=== PATIENT | female | born 1930 | race Caucasian/White ===

== ENCOUNTER 2017-02-20 10:52 | Emergency (ER) | payer OTHER, BC ==
[~2017-02-20] VITALS: Ht 162.6 cm; Wt 100.0 kg
[~2017-02-20 10:52] MED LIST: ADVIN25050 INH; AZIT-57 PO; CITRACAL PETITES PO; CLR/5 PO; CMBIN INH; FLUT110A INH; LSX40 PO; OXYC-57 PO; PRAV20TA PO; VNCAQN INH; [UNRECOGNIZED DRUG - OTHER] PO
[2017-02-20 10:57] VITALS: TEMP 37.1; Ht 162.6 cm; Wt 100.0 kg
--- NOTE | 2017-02-20 11:14 | EMERGENCY ROOM VISIT NOTE ---
History Report prepared by Raúl: Calderon Lainez Under the Supervision of: Dr. Dharmesh Mcwilliams M.D. First contact with patient: 11:05 Chief Complaint: WEAKNESS Stated Complaint: LETHARGY History of Present Illness The patient is an 86 year old female who presents to the Emergency Room via EMS with complaints of worsening weakness that started last night. Per the nursing staff, the patient's caregiver called an ambulance because the patient has had trouble ambulating more than usual. The patient states that she did not fall, mostly because her son was there to catch her. Per the patient's caregiver, the patient normally cannot walk far, but the patient is weaker than normal. The patient could not get up out of bed. The patient is on 4 liters of oxygen all the time, and is currently at 97%. The patient denies chest pain, new shortness of breath, confusion, or new leg swelling. The patient did not have her blood pressure medication this morning because the patient's caregiver knew the patient was coming here. Source of History: patient, caregiver, nursing staff Onset: Last night Position: other (global - weakness) Symptom Intensity: could not get up out of bed Timing: worsening Associated Symptoms: No SOB, No chest pain Note: Associated symptoms: Trouble ambulating. Denies confusion, new leg swelling. Review of Systems See HPI for pertinent positives & negatives. A total of 10 systems reviewed and were otherwise negative. Past Medical & Surgical Medical Problems: (1) Congestive heart failure Family History Family history omitted secondary to advanced age. Social History Smoking Status: Former Smoker Marital Status: Occupation Status: retired Current/Historical Medications Scheduled Acetaminophen (Tylenol), 1,000 MG PO BID PRN Albuterol Hfa (Ventolin Hfa), 1-2 PUFFS INH Q6H Beclomethasone Dip (Beconase Aq), 1 SPRAY EDI BID Desloratadine (Clarinex), 5 MG PO DAILY Diclofenac Sodium (Topical) (Voltaren 1% Top Gel), 1 APPLN TOP HS Fluticasone-Salmeterol 230/21 Mcg (Advair Hfa 230/21 Mcg), 2 PUFFS INH BID Furosemide (Lasix), 40 MG PO Q2D Gabapentin (Neurontin), 300 MG PO QID Hctz/Spironolactone 25MG/25MG (Aldactazide 25MG/25MG), 1 TAB PO DAILY Losartan Potassium (Cozaar), 50 MG PO DAILY Multivitamins/Minerals (Mvi With Minerals), 1 TAB PO DAILY Oxycodone/Acetaminophen 5MG/325MG (Percocet 5MG/325MG), 1 TABLET PO Q8HR PRN Pravastatin Sodium (Pravachol), 10 MG PO DAILY Tramadol Hcl (Ultram), 50 MG PO BID PRN Allergies Coded Allergies: Doxycycline (Verified Allergy, Mild, ., 10/01/12) Iodinated Diagnostic Agents (Verified Allergy, Unknown, `, 10/15/15) Penicillins (Verified Allergy, Unknown, 12/10/09) Physical Exam Vital Signs Date Time Temp Pulse Resp B/P Pulse Ox O2 Delivery O2 Flow Rate FiO2 02/20/17 18:01 114 18 199/98 91 Nasal Cannula 4.0 02/20/17 18:01 114 18 199/98 91 02/20/17 16:37 85 18 169/78 98 Nasal Cannula 3.0 02/20/17 15:22 97 23 97 02/20/17 15:21 182/81 02/20/17 14:52 93 20 02/20/17 14:22 94 26 02/20/17 13:52 87 19 02/20/17 13:22 104 33 02/20/17 12:52 90 19 02/20/17 12:41 92 18 174/87 97 Nasal Cannula 3.0 02/20/17 12:40 174/87 02/20/17 12:22 101 24 02/20/17 11:22 92 23 02/20/17 10:57 37.1 97 18 179/95 97 Nasal Cannula 3.0 02/20/17 10:55 179/95 Physical Exam GENERAL: Patient is chronically unwell appearing and tired appearing, in minimal distress. HEENT: No acute trauma, normocephalic atraumatic, mucous membranes moist, no nasal congestion, no scleral icterus. NECK: No stridor, no adenopathy, no meningismus, trachea is midline. LUNGS: Decreased breath sounds bilaterally with crackles. HEART: Regular rate and rhythm. No murmurs, rubs, gallops appreciated. ABDOMEN: Soft, nontender, bowel sounds positive, no masses appreciated, no peritonitis. BACK: No midline tenderness, no CVA tenderness EXTREMITIES: 4+ bilateral pitting edema lower legs. NEUROLOGIC: Alert and oriented, no acute motor or sensory deficits, no focal weakness, cranial nerves grossly intact. SKIN: No rash, no jaundice, no diaphoresis. Medical Decision & Procedures ER Provider Diagnostic Interpretation: Radiology results and stated below per my review and radiologist interpretation: HEAD CT NONCONTRAST CT DOSE: 823.94 mGycm HISTORY: Mental status change Generalized Weakness TECHNIQUE: Multiaxial CT images of the head were performed without the use of intravenous contrast. Comparison: None. Findings: The paranasal sinuses and mastoid air cells are clear. The calvarium and skull base are intact. The ventricles and sulci are within normal limits. There is no mass, hematoma, midline shift, or acute infarct. Impression: No acute intracranial abnormality. Mild chronic small vessel change of aging Electronically signed by: Luis Carlos Lawrence M.D. 02/20/2017 12:03 PM Dictated Date/Time: 02/20/2017 12:01 PM CHEST ONE VIEW PORTABLE HISTORY: Generalized Weakness COMPARISON: Chest 10/15/2015. FINDINGS: No pneumothorax. Small bilateral pleural effusions are again noted. The heart remains enlarged. Bibasilar densities persist. Mild interstitial pulmonary edema, unchanged. Calcified mediastinal, hilar, supraclavicular lymph nodes. Severe degenerative changes within the glenohumeral joints with humeral head deformity. IMPRESSION: No change from the prior study. Mild interstitial pulmonary edema and small bilateral pleural effusions/opacities persist. Electronically signed by: Hong Peters M.D. 02/20/2017 11:25 AM Dictated Date/Time: 02/20/2017 11:23 AM Laboratory Results 02/20/17 11:33 Red Blood Count 3.17, Mean Corpuscular Volume 100.3, Mean Corpuscular Hemoglobin 30.0, Mean Corpuscular Hemoglobin Concent 29.9, Mean Platelet Volume 9.9, Neutrophils (%) (Auto) 86.0, Lymphocytes (%) (Auto) 6.7, Monocytes (%) ( Auto) 5.1, Eosinophils (%) (Auto) 1.4, Basophils (%) (Auto) 0.6, Neutrophils # ( Auto) 7.71, Lymphocytes # (Auto) 0.60, Monocytes # (Auto) 0.46, Eosinophils # ( Auto) 0.13, Basophils # (Auto) 0.05 02/20/17 11:33 Test 02/20/17 11:33 02/20/17 12:30 White Blood Count 8.97 K/uL (4.8-10.8) Red Blood Count 3.17 M/uL (4.2-5.4) Hemoglobin 9.5 g/dL (12.0-16.0) Hematocrit 31.8 % (37-47) Mean Corpuscular Volume 100.3 fL (80-100) Mean Corpuscular Hemoglobin 30.0 pg (25-34) Mean Corpuscular Hemoglobin Concent 29.9 g/dl (32-36) Platelet Count 240 K/uL (130-400) Mean Platelet Volume 9.9 fL (7.4-10.4) Neutrophils (%) (Auto) 86.0 % Lymphocytes (%) (Auto) 6.7 % Monocytes (%) (Auto) 5.1 % Eosinophils (%) (Auto) 1.4 % Basophils (%) (Auto) 0.6 % Neutrophils # (Auto) 7.71 K/uL (1.4-6.5) Lymphocytes # (Auto) 0.60 K/uL (1.2-3.4) Monocytes # (Auto) 0.46 K/uL (0.11-0.59) Eosinophils # (Auto) 0.13 K/uL (0-0.5) Basophils # (Auto) 0.05 K/uL (0-0.2) RDW Standard Deviation 47.1 fL (36.4-46.3) RDW Coefficient of Variation 12.8 % (11.5-14.5) Immature Granulocyte % (Auto) 0.2 % Immature Granulocyte # (Auto) 0.02 K/uL (0.00-0.02) Prothrombin Time 11.1 SECONDS (9.0-12.0) Prothromb Time International Ratio 1.0 (0.9-1.1) Activated Partial Thromboplast Time 22.1 SECONDS (21.0-31.0) Partial Thromboplastin Ratio 0.9 Anion Gap 2.0 mmol/L (3-11) Est Creatinine Clear Calc Drug Dose 45.6 ml/min Estimated GFR () 58.7 Estimated GFR (Non- 50.6 BUN/Creatinine Ratio 26.8 (10-20) Calcium Level 9.8 mg/dl (8.5-10.1) Phosphorus Level 2.3 mg/dl (2.5-4.9) Magnesium Level 2.0 mg/dl (1.8-2.4) Total Bilirubin 0.3 mg/dl (0.2-1) Direct Bilirubin < 0.1 mg/dl (0-0.2) Aspartate Amino Transf (AST/SGOT) 21 U/L (15-37) Alanine Aminotransferase (ALT/SGPT) 24 U/L (12-78) Alkaline Phosphatase 109 U/L (45-117) Total Creatine Kinase 88 U/L (26-192) Creatine Kinase MB 1.3 ng/ml (0.5-3.6) Creatine Kinase MB Ratio 1.5 (0-3.0) Troponin I < 0.015 ng/ml (0-0.045) Pro-B-Type Natriuretic Peptide 782 pg/ml (0-1800) Total Protein 6.8 gm/dl (6.4-8.2) Albumin 3.3 gm/dl (3.4-5.0) Lipase 159 U/L (73-393) Urine Color YELLOW Urine Appearance CLEAR (CLEAR) Urine pH 7.0 (4.5-7.5) Urine Specific [place] 1.017 (1.000-1.030) Urine Protein 1+ (NEG) Urine Glucose (UA) NEG (NEG) Urine Ketones NEG (NEG) Urine Occult Blood NEG (NEG) Urine Nitrite NEG (NEG) Urine Bilirubin NEG (NEG) Urine Urobilinogen NEG (NEG) Urine Leukocyte Esterase NEG (NEG) Urine WBC (Auto) 0 /hpf (0-5) Urine RBC (Auto) 0-4 /hpf (0-4) Urine Hyaline Casts (Auto) 0 /lpf (0-5) Urine Epithelial Cells (Auto) 0-5 /lpf (0-5) Urine Bacteria (Auto) NEG (NEG) Laboratory results as reviewed by me. Medications Administered Medications (Trade) Dose Ordered Sig/Jose Route Start Time Stop Time Status Last Admin Dose Admin Furosemide (Lasix Tab) 40 mg NOW STAT PO 02/20/17 15:58 02/20/17 16:01 DC 02/20/17 16:38 40 MG Losartan Potassium (coZAAR TAB) 50 mg NOW STAT PO 02/20/17 15:58 02/20/17 16:01 DC 02/20/17 16:38 50 MG ECG Indication: weakness Rate (beats per minute): 90 Rhythm: normal sinus Findings: no acute ischemic change, no ectopy ED Course 1105: The patient was evaluated in room C6. A complete history and physical exam was performed. 1225: I reevaluated the patient and she is still feeling weak. I had a separate conversation with the patient's family, who feel that the patient is too weak to go home, and do not think that she should come home right now. 1322: I reevaluated the patient and she is too weak to go home. I asked case management to talk to the patient and the family about rehab. 1558: Ordered Cozaar Tab 50 mg PO, Lasix Tab 40 mg PO. 1643: The patient was accepted at [facility] for transfer. The patient is resting comfortably and she is agreeable to the treatment plan. Medical Decision Differential: Sepsis, Infectious (UTI/Pneumonia/Meningitis/etc), Metabolic/ Electrolyte Abnormality, Cardiac, Hepatic, Endocrine, Toxicologic, Neurologic, amongst other pathologies entertained. 86 yr old female arrives with family for generalized weakness. Entire work-up including CT head essentially unremarkable. Chronic heart failure though no shob, no hypoxia and no increased leg swelling from normal. She was given BP and lasix meds. Monitored for quite some time. Clearly much of this is deconditioning. Seems to be good [facility] who have excepted for further treatment. Impression Primary Impression: Generalized weakness Additional Impressions: Ambulatory dysfunction CHF (congestive heart failure) Scribe Attestation The scribe's documentation has been prepared under my direction and personally reviewed by me in its entirety. I confirm that the note above accurately reflects all work, treatment, procedures, and medical decision making performed by me. Departure Information Dispostion Transfer Acute Care Facility (to [facility]) Referrals Gonzalez Bennett M.D. (PCP) Patient Instructions My [facility] Problem Qualifiers
[2017-02-20] MEDS ORDERED: IPRA1AER2 INH (11:15)
[2017-02-20] MEDS ORDERED: VNCAQN NAE (11:15)
[2017-02-20] MEDS ORDERED: FLVHFA110 INH (11:15)
[2017-02-20] MEDS ORDERED: CALC-335 PO (11:16)
[2017-02-20] MEDS ORDERED: FLUT115A INH (11:25)
[2017-02-20] MEDS ORDERED: FRS/40 PO (11:25)
--- NOTE | 2017-02-20 11:27 | DIAGNOSTIC IMAGING REPORT ---
CHEST ONE VIEW PORTABLE HISTORY: Generalized Weakness COMPARISON: Chest 10/15/2015. FINDINGS: No pneumothorax. Small bilateral pleural effusions are again noted. The heart remains enlarged. Bibasilar densities persist. Mild interstitial pulmonary edema, unchanged. Calcified mediastinal, hilar, supraclavicular lymph nodes. Severe degenerative changes within the glenohumeral joints with humeral head deformity. IMPRESSION: No change from the prior study. Mild interstitial pulmonary edema and small bilateral pleural effusions/opacities persist. Electronically signed by: Hong Peters M.D. 02/20/2017 11:25 AM Dictated Date/Time: 02/20/2017 11:23 AM
[2017-02-20 11:59] LABS: PARTIAL THROMBOPLASTIN RATIO 0.9; PROTHROMBIN TIME (PATIENT) 11.1 SECONDS (9.0-12.0)
[2017-02-20 12:04] LABS: ALT/SGPT 24 U/L (12-78); AST/SGOT 21 U/L (15-37); BLOOD UREA NITROGEN 27 mg/dl (7-18); BUN/CREATININE RATIO 26.8 (10-20); CALCIUM 9.8 mg/dl (8.5-10.1); CARBON DIOXIDE 38 mmol/L (21-32); CHLORIDE 102 mmol/L (98-107); GLUCOSE 121 mg/dl (70-99); POTASSIUM 4.6 mmol/L (3.5-5.1); SODIUM 142 mmol/L (136-145)
--- NOTE | 2017-02-20 12:05 | DIAGNOSTIC IMAGING REPORT ---
HEAD CT NONCONTRAST CT DOSE: 823.94 mGycm HISTORY: Mental status change Generalized Weakness TECHNIQUE: Multiaxial CT images of the head were performed without the use of intravenous contrast. Comparison: None. Findings: The paranasal sinuses and mastoid air cells are clear. The calvarium and skull base are intact. The ventricles and sulci are within normal limits. There is no mass, hematoma, midline shift, or acute infarct. Impression: No acute intracranial abnormality. Mild chronic small vessel change of aging Electronically signed by: Luis Carlos Lawrence M.D. 02/20/2017 12:03 PM Dictated Date/Time: 02/20/2017 12:01 PM
[2017-02-20 12:06] LABS: BASO % 0.6 %; BASO ABS # 0.05 K/uL (0-0.2); COMPLETE YES; EOS % 1.4 %; HEMATOCRIT 31.8 % (37-47); IG% 0.2 %; LYMPH % 6.7 %; MEAN CELL VOLUME 100.3 fL (80-100); MEAN CORPUSCULAR HGB CONC 29.9 g/dl (32-36); MEAN PLATELET VOLUME 9.9 fL (7.4-10.4); MONO % 5.1 %; PLATELET COUNT 240 K/uL (130-400); RED BLOOD COUNT 3.17 M/uL (4.2-5.4); WHITE BLOOD COUNT 8.97 K/uL (4.8-10.8)
[2017-02-20 12:07] LABS: ALKALINE PHOSPHATASE 109 U/L (45-117); CKMB/CK RATIO 1.5 (0-3.0); PHOSPHORUS 2.3 mg/dl (2.5-4.9)
[2017-02-20 13:07] LABS: URINE APPEARANCE CLEAR (CLEAR); URINE BILIRUBIN NEG (NEG); URINE COLOR YELLOW; URINE EPITHELIAL CELL AUTO 0-5 /lpf (0-5); URINE NITRITE NEG (NEG); URINE SPECIFIC GRAVITY 1.017 (1.000-1.030); UROBILINOGEN NEG (NEG); ZZURINE CULT IF INDIC CATH NO
[2017-02-20 13:09] LABS: MANUAL MICROSCOPIC REQUIRED? NO; REVIEW REQ? NO
[2017-02-20] MEDS ORDERED: LOSARTAN POTASSIUM 50 MG TAB PO STA (15:58)
[2017-02-20] MEDS ORDERED: FUROSEMIDE 40 MG TAB PO STA (15:58)
[2017-02-20 18:01] VITALS: BP 199/98; PULSE 114; O2SAT 91
[2017-07-19] MEDS ORDERED: VNCAQN NAE (16:22)
[2017-07-19] MEDS ORDERED: PRD20 PO (16:22)
[2017-07-19] MEDS ORDERED: LVQ250 PO (16:22)
[2017-09-03] MEDS ORDERED: DONE1TAB11 PO (01:17)
[2017-09-03] MEDS ORDERED: ALPPOPS5 OPL (01:17)
[2017-09-03] MEDS ORDERED: VNTHFA/IN INH (12:02)
[2017-09-03] MEDS ORDERED: FLUT230A INH (12:02)
[2017-09-03] MEDS ORDERED: PRAV10TA39 PO (13:18)
[2017-09-03] MEDS ORDERED: OXGN (13:19)
[2017-09-03] MEDS ORDERED: LOSA50TA6 PO (14:45)
[2017-09-03] MEDS ORDERED: ULT/50 PO (14:45)
[2017-09-03] MEDS ORDERED: NRN/300 PO (14:45)
[2017-09-03] MEDS ORDERED: TYLOTC500 PO (14:45)
[2017-09-03] MEDS ORDERED: MULTTAB PO (14:45)
[2017-09-03] MEDS ORDERED: DICL1GEL12 TOP (14:45)
[2017-09-03] MEDS ORDERED: AZIT250T PO (15:16)
[2017-09-03] MEDS ORDERED: SPIR50TA PO (18:19)
[2017-09-19] MEDS ORDERED: PRED10PA3 PO (12:00)
[2017-09-19] MEDS ORDERED: IPRASOL4 INH (12:00)
[2017-09-19] MEDS ORDERED: LEVO1TAB35 PO (12:00)
== END 2017-02-20 18:02 ==
LOC: EDBD 10:52 → C.EDC 10:59
DX: R53.1 Weakness (principal); I50.9 Heart failure, unspecified; Z87.891 Personal history of nicotine dependence

== ENCOUNTER → 2017-02-26 | Outpatient (CLI) | payer OTHER, BC ==
[~2017-02-26] MED LIST changes: -ADVIN25050 INH; +ALPPOPS5 OPL; -AZIT-57 PO; +AZIT250T PO; +AZITTAB PO; -CITRACAL PETITES PO; +CLR10 PO; -CMBIN INH; +DICL1GEL12 TOP; +DONE1TAB11 PO; -FLUT110A INH; +FLUT230A INH; +FRS/40 PO; +IPRASOL4 INH; +LEVO1TAB35 PO; +LOSA50TA6 PO; -LSX40 PO; +LVQ250 PO; +MULTTAB PO; +NRN/300 PO; +OXGN; +PRAV10TA39 PO; +PRD20 PO; +PRED10PA3 PO; +SPIR50TA PO; +TYLOTC500 PO; +ULT/50 PO; -VNCAQN INH; +VNCAQN NAE; +VNTHFA/IN INH; -[UNRECOGNIZED DRUG - OTHER] PO
--- NOTE | 2017-02-26 21:59 | DIAGNOSTIC IMAGING REPORT ---
MRI OF THE CERVICAL SPINE WITHOUT IV CONTRAST CLINICAL HISTORY: Spinal stenosis. COMPARISON STUDY: No priors. TECHNIQUE: MRI of the cervical spine is performed utilizing various T1 and T2-weighted sequences in the axial and sagittal planes. IV contrast was not administered for this examination. The examination is significantly degraded by motion artifact and spinal curvature. FINDINGS: Cervical spine: Vertebral body height is maintained throughout the cervical spine. There is 4 mm of anterolisthesis at C3-C4. Minimal retrolisthesis is present at C5-C6 and C6-C7. There is straightening of the cervical lordosis with reversal centered at C4-C5. The spinous processes are intact as imaged. The atlantodental articulation appears maintained. A large hemangioma is seen in the body of T4. No destructive bony lesion is seen. Anterior osteophytes are noted from C4 through C7. Chronic degenerative endplate change is noted at these levels. Intervertebral discs: Degenerative disc desiccation is seen at all levels. Advanced loss of height is seen at C4-C5 and C5-C6. Moderate loss of height is noted at C6-C7. Spinal cord: Increased T2 signal is suggested within the cervical cord on the STIR sequences from C5 through T1. There is no significant thinning of the cervical cord. C2-C3: A posterior disc osteophyte complex effaces the ventral subarachnoid space. Uncovertebral and facet arthropathy cause moderate left neural foraminal stenosis. C3-C4: A posterior disc osteophyte complex effaces the ventral cord. Uncovertebral and facet arthropathy cause severe left and mild to moderate right neural foraminal stenosis. C4-C5: A posterior disc osteophyte complex abuts the ventral cord. Uncovertebral and facet arthropathy cause mild to moderate left greater than right neural foraminal stenosis. C5-C6: A posterior disc osteophyte complex abuts the ventral cord. Uncovertebral and facet arthropathy cause severe bilateral neural foraminal stenosis. C6-C7: A posterior disc osteophyte convex abuts the ventral cord. Uncovertebral and facet arthropathy cause severe right and moderate to severe left neural foraminal stenosis. C7-T1: Unremarkable. Soft tissues: The prevertebral and paraspinous soft tissues are normal as imaged. Brain parenchyma: Partially visualized brain parenchyma at the skull base is grossly unremarkable. IMPRESSION: 1. Significantly motion degraded examination. 2. Multilevel cervical spondylosis as detailed above. See discussion for detailed level by level analysis. 3. Question myelomalacia of the cervical cord versus artifact at C5-T1. Dictated: 02/26/2017 9:43 PM Transcribed: 02/26/2017 9:58 PM OBI_Deanna Electronically signed by: Issac Vidales M.D. 02/26/2017 10:41 PM Dictated Date/Time: 02/26/2017 9:43 PM
--- NOTE | 2017-02-26 22:05 | DIAGNOSTIC IMAGING REPORT ---
MRI OF THE LUMBAR SPINE WITHOUT IV CONTRAST CLINICAL HISTORY: Spinal stenosis. COMPARISON STUDY: No priors. TECHNIQUE: MRI of the lumbar spine is performed utilizing various T1 and T2-weighted sequences in the axial and sagittal planes. IV contrast was not administered for this examination. The examination is significantly compromised by motion artifact and spinal curvature. FINDINGS: Lumbar spine: Vertebral body height and alignment appear maintained throughout the lumbar spine. There is moderate lumbar dextrocurvature centered at L2-L3. There is minimal anterolisthesis at L3-L4 and L4-L5. Alignment is otherwise preserved. Hemangiomas are noted in the bodies of L1 and L3. No destructive osseous lesion is identified. Marrow signal intensity is heterogeneous. Anterior osteophytes are seen throughout. The transverse and spinous processes are grossly intact. There is no evidence of spondylolysis. Intervertebral discs: Advanced degenerative disc desiccation is seen throughout the lumbar spine. Moderate to severe loss of height is present from L2-L3 through L4-L5. Fluid is present within the L2-L3, L3-L4, and L4-L5 discs. This likely is on a degenerative basis. There is no associated endplate change. Spinal cord: Partially visualized spinal cord is normal in morphology and signal intensity. The conus medullaris terminates at the level of L1. The nerve roots of the cauda equina are grossly normal in morphology. L1-L2: A posterior disc bulge with annular fissure is noted. In conjunction with hypertrophy of the ligamentum flavum, this causes mild to moderate acquired compromise of the central canal, with a minimum AP diameter of 7 mm. There is bilateral subarticular stenosis, right greater than left. This may impinge on the exiting right L1 nerve root. L2-L3: Broad-based posterior disc bulge is identified with annular fissure. In conjunction with hypertrophy of the ligamentum flavum, this causes moderate to severe acquired compromise of the central canal, with a minimum AP diameter of 6 mm. There is bilateral subarticular stenosis with probable impingement on the exiting bilateral L2 and the transiting bilateral L3 nerve roots. There is moderate left-sided neural foraminal stenosis at this level secondary to facet arthropathy. L3-L4: There is broad-based posterior disc bulge eccentric to the left with annular fissure. In conjunction with hypertrophy of the ligamentum flavum, this causes severe central canal stenosis, with a minimum AP canal diameter of 5 mm. There is severe bilateral subarticular stenosis, left greater than right with probable impingement on the exiting bilateral L3 and the transiting L4 nerve roots. There is tethering of the cauda equina at this level. There is also severe bilateral neural foraminal stenosis at this level. L4-L5: There is a posterior disc osteophyte complex. In conjunction with hypertrophy of the ligamentum flavum, there is moderate central canal stenosis at this level, with a minimum AP diameter of 7 mm. There is bilateral subarticular stenosis with probable impingement on the exiting bilateral L4 nerve roots. Facet arthropathy causes severe bilateral neural foraminal stenosis. L5-S1: The central canal is clear. Facet arthropathy causes mild to moderate bilateral neural foraminal stenosis. Sacrum: Partially imaged sacrum is normal in morphology and signal intensity. Soft tissues: There is fatty atrophy of the paraspinous and iliopsoas musculature. The abdominal aorta appears ectatic. No retroperitoneal lymphadenopathy is seen. The partially imaged kidneys appear atrophic. Renal cysts are noted on the dancing teacher images. IMPRESSION: 1. Motion compromised examination. 2. Moderate to advanced lumbosacral spondylosis and scoliosis with multilevel acquired compromise of the central canal. See discussion for detailed level by level analysis. 3. No destructive bony process is identified. 4. Degenerative disc disease as above. Fluid within the L2-L3, L3-L4, and L4-L5 discs is likely on a degenerative basis. There is no convincing evidence of discitis at these levels. Clinical correlation will be required. Dictated: 02/26/2017 9:51 PM Transcribed: 02/26/2017 10:04 PM OBI_Deanna Electronically signed by: Issac Vidales M.D. 02/26/2017 10:39 PM Dictated Date/Time: 02/26/2017 9:51 PM
--- NOTE | 2017-02-26 22:08 | DIAGNOSTIC IMAGING REPORT ---
MRI OF THE THORACIC SPINE WITHOUT IV CONTRAST CLINICAL HISTORY: Generalized weakness. Spinal stenosis. COMPARISON STUDY: No priors. TECHNIQUE: MRI of the thoracic spine is performed using various T1 and T2-weighted sequences in the axial, sagittal, and coronal planes. IV contrast was not administered for this examination. FINDINGS: Vertebral body height and alignment are maintained throughout the thoracic spine. Marrow signal intensity is heterogeneous. Hemangiomas are identified in the bodies of T3 and L1. No destructive bony lesion is suspected. Degenerative disc desiccation is seen throughout the thoracic region. Posterior disc osteophyte complexes are identified at C7-T1, T1-T2, T5-T6, and T7-T8. There is no high-grade central canal stenosis identified involving the thoracic spine. No significant neural foraminal stenosis is identified. The thoracic spinal cord is normal in morphology and signal intensity. The conus medullaris terminates at the level of L1. The transverse and spinous processes are intact as imaged. The paraspinous soft tissues are within normal limits. A large heterogeneous mass lesion is identified within the mediastinum, possibly representing a thyroid goiter. No obvious pulmonary lesion is identified, although this is not well assessed by MRI. No pleural effusion is seen. A right renal cyst is partially imaged. IMPRESSION: 1. Degenerative disc disease as above. No high-grade central canal stenosis is seen in the thoracic region. 2. No destructive bony process is suggested in the thoracic spine. 3. The thoracic spinal cord is normal in morphology and signal intensity. 4. A large complex/heterogeneous mass lesion is identified in the superior mediastinum. The appearance suggests thyroid goiter but this is incompletely visualized. Correlation with any prior outside imaging studies is recommended. If no prior studies are available this could be further assessed with a CT scan of the chest if clinically warranted. Dictated: 02/26/2017 9:58 PM Transcribed: 02/26/2017 10:07 PM [facility]BI[facility]Deanna Electronically signed by: Issac Vidales M.D. 02/26/2017 10:27 PM Dictated Date/Time: 02/26/2017 9:58 PM
== END | disposition home or self-care (01) ==
LOC: C.MRI 18:43
PROVIDERS: ATTEND Physical Medicine & Rehabilitation
DX: M47.812 Spondylosis without myelopathy or radiculopathy, cervical region (principal); M47.817 Spondylosis without myelopathy or radiculopathy, lumbosacral region; M51.36 Other intervertebral disc degeneration, lumbar region; M41.9 Scoliosis, unspecified; M51.34 Other intervertebral disc degeneration, thoracic region; R22.2 Localized swelling, mass and lump, trunk; R53.1 Weakness; I50.9 Heart failure, unspecified; R26.9 Unspecified abnormalities of gait and mobility

== ENCOUNTER → 2017-02-28 | Outpatient (CLI) | payer OTHER ==
--- NOTE | 2017-02-28 14:48 | DIAGNOSTIC IMAGING REPORT ---
CT OF THE NECK WITHOUT CONTRAST CLINICAL HISTORY: Mass on MRI. TECHNIQUE: Axial images of the neck were obtained without IV contrast. COMPARISON STUDY: MRI the cervical and thoracic spines February 26, 2017. FINDINGS: No enlarged cervical lymph nodes are present. Epiglottis is normal. No mucosal lesions are identified although sensitivity is diminished on this unenhanced CT. Note is made of heterogeneous enlargement of the thyroid gland with mediastinal extension. This corresponds to the lesion shown on MRI of February 26, 2017 and is consistent with a thyroid goiter. No additional masses are identified on this examination. No suspicious skeletal lesions are identified. The parotid and submandibular glands are within normal limits on this unenhanced exam. IMPRESSION: Heterogeneous enlargement of the thyroid gland with extension into the superior mediastinum consistent with a large thyroid goiter. This accounts for the abnormality on MRI of the thoracic spine. Electronically signed by: Julio Escobar M.D. 02/28/2017 2:46 PM Dictated Date/Time: 02/28/2017 2:41 PM
--- NOTE | 2017-02-28 14:50 | DIAGNOSTIC IMAGING REPORT ---
CT SCAN OF THE CHEST WITHOUT IV CONTRAST CLINICAL HISTORY: Mediastinal mass seen by thoracic spine MRI. COMPARISON STUDY: MRI of the thoracic spine dated 02/26/2017. Chest x-ray dated 02/20/2017. TECHNIQUE: CT scan of the thorax was performed from the thoracic inlet to the upper abdomen. Images are reviewed in the axial, sagittal, and coronal planes. IV contrast was not administered for this examination. CT DOSE: 1694.72 mGy.cm FINDINGS: Thyroid: The thoracic gland is markedly enlarged and heterogeneous. There is a large heterogeneous goiter which extends into the mediastinum which contains numerous coarse calcifications. This measures approximately 12 cm in craniocaudal length. Thoracic aorta: The thoracic aorta is normal in caliber and demonstrates standard 3-vessel arch anatomy. Heart: The heart is markedly enlarged and there is trace pericardial effusion. The pulmonary trunk is markedly dilated measuring up to 5 cm in transverse diameter. This is consistent with pulmonary artery hypertension. Lungs and pleural spaces: Evaluation of the lung parenchyma is severely degraded by respiratory motion artifact. Bibasilar patchy airspace consolidation is identified. No pleural effusion is seen. Scattered calcified granulomas are identified. The trachea is patent and displaced to the right by the thyroid goiter. Mediastinum: There is no mediastinal lymphadenopathy. Numerous calcified mediastinal lymph nodes are identified. A large heterogeneous mass within the superior mediastinum is consistent with a thyroid goiter. Keiko: There are calcified hilar lymph nodes. The keiko are not well assessed without IV contrast. Axillae: There is no axillary lymphadenopathy. Upper abdomen: The examination is significantly degraded by motion artifact. A 2.1 cm right adrenal adenoma is incidentally noted. There is diverticulosis of the partially imaged left colon. Skeletal structures: The skeletal structures are osteopenic. Advanced arthritic change is present in the shoulders. Mild degenerative change is noted throughout the thoracic spine. No lytic or blastic bony lesions are seen. IMPRESSION: 1. Motion compromised examination. 2. 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 This corresponds to the lesion seen on the thoracic spinal MRI. 3. Marked cardiomegaly with evidence of pulmonary artery hypertension. 4. Patchy airspace consolidation is seen dependently at the lung bases. This could represent atelectasis, pneumonia, and/or aspiration pneumonitis. Clinical correlation will be required. 5. There is evidence of remote granulomatous infection. 6. Additional changes as above. Electronically signed by: Issac Vidales M.D. 02/28/2017 2:48 PM Dictated Date/Time: 02/28/2017 2:41 PM
== END | disposition home or self-care (01) ==
LOC: C.CTS 14:11
PROVIDERS: ATTEND Internal Medicine Critical Care Medicine
DX: R22.2 Localized swelling, mass and lump, trunk (principal); I51.7 Cardiomegaly; R91.8 Other nonspecific abnormal finding of lung field

== ENCOUNTER → 2017-03-19 | Outpatient (CLI) | payer OTHER, BC ==
[2017-03-19 14:48] LABS: BASO % 0.6 %; BASO ABS # 0.05 K/uL (0-0.2); COMPLETE YES; EOS % 3.6 %; HEMATOCRIT 32.6 % (37-47); IG% 0.1 %; LYMPH % 10.6 %; LYMPH ABS # 0.84 K/uL (1.2-3.4); MEAN CELL VOLUME 100.6 fL (80-100); MEAN CORPUSCULAR HEMOGLOBIN 29.6 pg (25-34); MEAN CORPUSCULAR HGB CONC 29.4 g/dl (32-36); MEAN PLATELET VOLUME 9.9 fL (7.4-10.4); MONO % 7.2 %; NEUT % 77.9 %; PLATELET COUNT 254 K/uL (130-400); RED BLOOD COUNT 3.24 M/uL (4.2-5.4); WHITE BLOOD COUNT 7.96 K/uL (4.8-10.8)
[2017-03-19 15:02] LABS: FERRITIN 56.6 ng/ml (8.0-388.0)
== END | disposition home or self-care (01) ==
LOC: C.LAB1850 12:52
PROVIDERS: ATTEND Physician Assistant Medical
DX: D50.8 Other iron deficiency anemias (principal); E53.8 Deficiency of other specified B group vitamins

== ENCOUNTER 2017-07-13 23:16 | Inpatient (IN) | payer OTHER, BC ==
[~2017-07-13] VITALS: Ht 152.4 cm; Wt 96.5 kg
[~2017-07-13 23:16] MED LIST changes: -ALPPOPS5 OPL; -AZIT250T PO; -AZITTAB PO; -CLR10 PO; -DONE1TAB11 PO; -IPRASOL4 INH; -LEVO1TAB35 PO; -LVQ250 PO; -OXGN; -PRAV10TA39 PO; -PRD20 PO; -PRED10PA3 PO
[2017-07-14] VITALS (10 sets, daily range): BP systolic 115–159; BP diastolic 61–74; PULSE 81–92; TEMP 36.6–37.3; O2SAT 91–100; Ht 152.4 cm; Wt 96.5 kg
[2017-07-14 00:42] LABS: PARTIAL THROMBOPLASTIN RATIO 0.9; PROTHROMBIN TIME (PATIENT) 10.7 SECONDS (9.0-12.0)
[2017-07-14 00:55] LABS: BLOOD UREA NITROGEN 40 mg/dl (7-18); BUN/CREATININE RATIO 36.8 (10-20); CALCIUM 9.8 mg/dl (8.5-10.1); CHLORIDE 96 mmol/L (98-107); GLUCOSE 120 mg/dl (70-99); POTASSIUM 4.9 mmol/L (3.5-5.1); SODIUM 141 mmol/L (136-145)
[2017-07-14 01:05] LABS: CARBON DIOXIDE 49 mmol/L (21-32)
[2017-07-14 01:16] LABS: HEMATOCRIT 30.1 % (37-47); MEAN CELL VOLUME 102.7 fL (80-100); MEAN CORPUSCULAR HEMOGLOBIN 29.4 pg (25-34); MEAN CORPUSCULAR HGB CONC 28.6 g/dl (32-36); MEAN PLATELET VOLUME 9.8 fL (7.4-10.4); PLATELET COUNT 199 K/uL (130-400); RED BLOOD COUNT 2.93 M/uL (4.2-5.4); WHITE BLOOD COUNT 8.54 K/uL (4.8-10.8)
[2017-07-14] MEDS ORDERED: DONE1TAB11 PO (01:17)
[2017-07-14] MEDS ORDERED: ALPPOPS5 OPL (01:17)
[2017-07-14] MEDS ORDERED: AZITTAB PO (01:18)
[2017-07-14] MEDS ORDERED: AZIT250T PO (01:18)
[2017-07-14 01:19] LABS: BASO % 0.5 %; BASO ABS # 0.04 K/uL (0-0.2); COMPLETE YES; EOS % 2.9 %; IG% 0.2 %; LYMPH % 9.5 %; LYMPH ABS # 0.81 K/uL (1.2-3.4); NEUT % 78.9 %; STOMATOCYTE 1+
[2017-07-14] MEDS ORDERED: FUROSEMIDE 40 MG/4 ML VIAL IV STA (02:11)
[2017-07-14] MEDS ORDERED: NITROGLYCERIN 0.4 MG SL PER TAB CHARGE SL PRN (02:15)
[2017-07-14] MEDS ORDERED: ACETAMINOPHEN 500 MG TAB PO PRN (02:15)
[2017-07-14] MEDS ORDERED: ONDANSETRON INJ 2 MG/ML 2 ML VIAL IV PRN (02:15)
--- NOTE | 2017-07-14 02:24 | EMERGENCY ROOM VISIT NOTE ---
History Report prepared by Raúl: Kelly Samson Under the Supervision of: Dr. Robert Samano M.D. First contact with patient: 23:19 Chief Complaint: RESPIRATORY PROBLEMS Stated Complaint: BREATHING DIFFICULTY History of Present Illness The patient is an 86 year old female who presents to the Emergency Room with complaints of persistent nasal congestion starting several days ago. She presents to the ED by EMS. She is on oxygen and because of the nasal congestion , she has not been getting enough oxygen. She is SOB with activity which is normal for her. She is not more SOB. She has had some cough. She denies any fever or chest pain. She has a history of CHF. She lives at home with her daughter. Her daughter told EMS that she called them because she was not able to give the patient oxygen because their air compressor was not working. Source of History: patient, nursing staff Onset: several days ago Position: nose Quality: other (congestion) Timing: other (persistent) Associated Symptoms: + cough, No fevers, No chest pain Review of Systems See HPI for pertinent positives & negatives. A total of 10 systems reviewed and were otherwise negative. Past Medical & Surgical Medical Problems: (1) Congestive heart failure Family History Noncontributory secondary to age. Social History Smoking Status: Former Smoker Marital Status: Occupation Status: retired Current/Historical Medications Scheduled Albuterol Hfa (Ventolin Hfa), 1 PUFFS INH AMHS Azithromycin (Zithromax), 250 MG PO DAILY Beclomethasone Dip (Beconase Aq), 1 SPRAY EDI BID Brimonidine Tartrate (Alphagan P), 1 DROPS OPL BID Desloratadine (Clarinex), 5 MG PO DAILY Diclofenac Sodium (Topical) (Voltaren 1% Top Gel), 1 APPLN TOP HS Donepezil Hydrochloride (Donepezil Hcl), 5 MG PO HS Fluticasone-Salmeterol 230/21 Mcg (Advair Hfa 230/21 Mcg), 2 PUFFS INH BID Furosemide (Lasix), 40 MG PO Q2D Gabapentin (Neurontin), 300 MG PO QID Hctz/Spironolactone 25MG/25MG (Aldactazide 25MG/25MG), 1 TAB PO DAILY Losartan Potassium (Cozaar), 50 MG PO DAILY Multivitamins/Minerals (Mvi With Minerals), 1 TAB PO DAILY Pravastatin Sodium (Pravachol), 10 MG PO DAILY Tramadol Hcl (Ultram), 50 MG PO BID PRN Scheduled PRN Acetaminophen (Tylenol), 1,000 MG PO Q8 PRN for Pain Azithromycin (Zithromax Z-Aidan), 1 PKT PO UD PRN for RESCUE KIT Allergies Coded Allergies: Doxycycline (Verified Allergy, Mild, ., 07/14/17) Iodinated Diagnostic Agents (Verified Allergy, Unknown, `, 07/14/17) Penicillins (Verified Allergy, Unknown, 07/14/17) Physical Exam Vital Signs Date Time Temp Pulse Resp B/P (MAP) Pulse Ox O2 Delivery O2 Flow Rate FiO2 07/14/17 01:16 86 20 98 Oxymask 5.0 07/14/17 00:16 80 19 100 07/13/17 23:44 99 Non-Rebreather 15.0 07/13/17 23:31 80 07/13/17 23:24 37.0 99 18 133/75 88 Nasal Cannula 4.0 07/13/17 23:19 133/75 Physical Exam Constitutional: Vital signs reviewed. Eyes: Pupils are equal round reactive to light. Conjunctiva are noninjected. ENT: Pharynx is clear without erythema or exudate. Mucous membranes are moist. Neck supple without meningeal signs. Respiratory: Bibasilar crackles. Breath sounds are equal bilaterally. Cardiovascular: Regular rate and rhythm. No rubs or gallops. GI: Soft, nondistended and nontender. Bowel sounds are present. Musculoskeletal: No peripheral edema. No lower extremity tenderness. Integumentary: No cyanosis. Neurological: The patient is awake and alert. No focal deficits. Psychiatric: Normal affect. Medical Decision & Procedures ER Provider Diagnostic Interpretation: X-ray results as stated below per interpretation by me: Chest X-ray: Cardiomegaly, interstitial thickening, no change from February. Laboratory Results 07/14/17 00:05 Red Blood Count 2.93, Mean Corpuscular Volume 102.7, Mean Corpuscular Hemoglobin 29.4, Mean Corpuscular Hemoglobin Concent 28.6, Mean Platelet Volume 9.8, Neutrophils (%) (Auto) 78.9, Lymphocytes (%) (Auto) 9.5, Monocytes (%) ( Auto) 8.0, Eosinophils (%) (Auto) 2.9, Basophils (%) (Auto) 0.5, Neutrophils # ( Auto) 6.74, Lymphocytes # (Auto) 0.81, Monocytes # (Auto) 0.68, Eosinophils # ( Auto) 0.25, Basophils # (Auto) 0.04 07/14/17 00:05 Test 07/14/17 00:05 07/14/17 00:13 White Blood Count 8.54 K/uL (4.8-10.8) Red Blood Count 2.93 M/uL (4.2-5.4) Hemoglobin 8.6 g/dL (12.0-16.0) Hematocrit 30.1 % (37-47) Mean Corpuscular Volume 102.7 fL (80-100) Mean Corpuscular Hemoglobin 29.4 pg (25-34) Mean Corpuscular Hemoglobin Concent 28.6 g/dl (32-36) Platelet Count 199 K/uL (130-400) Mean Platelet Volume 9.8 fL (7.4-10.4) Neutrophils (%) (Auto) 78.9 % Lymphocytes (%) (Auto) 9.5 % Monocytes (%) (Auto) 8.0 % Eosinophils (%) (Auto) 2.9 % Basophils (%) (Auto) 0.5 % Neutrophils # (Auto) 6.74 K/uL (1.4-6.5) Lymphocytes # (Auto) 0.81 K/uL (1.2-3.4) Monocytes # (Auto) 0.68 K/uL (0.11-0.59) Eosinophils # (Auto) 0.25 K/uL (0-0.5) Basophils # (Auto) 0.04 K/uL (0-0.2) RDW Standard Deviation 51.6 fL (36.4-46.3) RDW Coefficient of Variation 13.7 % (11.5-14.5) Immature Granulocyte % (Auto) 0.2 % Immature Granulocyte # (Auto) 0.02 K/uL (0.00-0.02) Basophilic Stippling 1+ Stomatocytes 1+ Prothrombin Time 10.7 SECONDS (9.0-12.0) Prothromb Time International Ratio 1.0 (0.9-1.1) Activated Partial Thromboplast Time 23.1 SECONDS (21.0-31.0) Partial Thromboplastin Ratio 0.9 Anion Gap -4.0 mmol/L (3-11) Est Creatinine Clear Calc Drug Dose 38.9 ml/min Estimated GFR () 52.3 Estimated GFR (Non- 45.1 BUN/Creatinine Ratio 36.8 (10-20) Calcium Level 9.8 mg/dl (8.5-10.1) Pro-B-Type Natriuretic Peptide 407 pg/ml (0-1800) Chemistry Specimen Hemolysis Bedside Troponin I < 0.030 ng/ml (0-0.045) Laboratory results as reviewed by me. ECG Indication: SOB/dyspnea Rate (beats per minute): 82 Rhythm: normal sinus Findings: no acute ischemic change, no ectopy ED Course 2321: The patient was evaluated in room C7. A complete history and physical exam was performed. 0027: I reevaluated the patient. She states that the patient has had worsening dyspnea on exertion. Her daughter says that their air compressor is broken and they have no oxygen at home. I discussed the test results with the patient and her daughter. They verbalized agreement of the treatment plan. She will be evaluated for further management. 0034: I spoke with Dr. Pinon of [facility] hospitalist service. We discussed the patient and her results. The patient will be further evaluated by him. Medical Decision This is an 86-year-old female presents with nasal congestion and shortness of breath. Differential diagnosis includes URI, sinusitis, CHF, pulmonary edema, pneumonia. I did perform a limited focused review of portions of the patient's old chart on the electronic medical record. The patient has had no recent pertinent visits to this hospital. I did evaluate the patient as noted above. The patient states she is short of breath with exertion. I obtain history from her daughter who stated that the air compressor was broken and she eventually ran out of her portable oxygen and so they have come here. IV access was established. The patient was placed on a continuous vegetable worker. I did order and personally review the patient's 12-lead EKG and chest x-ray as described above. I did order and review the patient's blood work as noted in the electronic medical record. She is anemic. I did discuss case with the hospitalist and cyanide case hardener. Medication Reconcilliation Current Medication List: was personally reviewed by me Blood Pressure Screening Patient's blood pressure: Elevated blood pressure Blood pressure disposition: Referred to PCP Consults Time Called: 29 Consulting Physician: Dr. Pinon of [facility] hospitalist service Returned Call: [phone] I spoke with him. We discussed the patient and her results. The patient will be further evaluated by him. Impression Primary Impression: Hypoxia Additional Impressions: MELISSA (dyspnea on exertion) Anemia Scribe Attestation The scribe's documentation has been prepared under my direct and personally reviewed by me in its entirety. I confirm that the note above accurately reflects all work, treatment, procedures, and medical decision making performed by me. Departure Information Dispostion Being Evaluated By Hospitalist Referrals Gonzalez Bennett M.D. (PCP) Patient Instructions My [facility] Problem Qualifiers Additional Impressions: Anemia Anemia type: unspecified type Qualified Codes: D64.9 - Anemia, unspecified
[2017-07-14] MEDS ORDERED: LEVALBUTEROL/IPRATROPIUM NEB INH SCH (03:00)
[2017-07-14] MEDS: IPRATROPIUM BROMIDE NEB SOLN 0.02% 2.5 ML VIAL INH SCH ×4 (03:24→19:54)
[2017-07-14] MEDS: LEVALBUTEROL 1.25MG/0.5ML NEB INH SCH ×4 (03:24→19:53)
[2017-07-14] MEDS ORDERED: LEVALBUTEROL 1.25MG/0.5ML NEB INH PRN (03:30)
[2017-07-14] MEDS ORDERED: IPRATROPIUM BROMIDE NEB SOLN 0.02% 2.5 ML VIAL INH PRN (03:30)
[2017-07-14] MEDS ORDERED: LEVOFLOXACIN CONSULT ACTIVE PRN (03:30)
--- NOTE | 2017-07-14 03:41 | History and Physical ---
History & Physical Date & Time of Service: Jul 14, 2017 at 03:35 Chief Complaint: Congestive Heart Failure,Hypoxia Primary Care Physician: Gonzalez Bennett M.D. History of Present Illness Source: patient, family, hospital records The patient is a an 86-year-old female who presents emergency department with increased shortness of breath at rest and dyspnea on exertion and cough. Her daughter reports that she's had her oxygen concentrator was changed 3 times at home recently due to malfunctioning, with most recent being earlier in the day prior to arrival. Patient has some underlying dementia, so daughter provides significant part of the history of present illness. She has not had any recent travels or sick exposures Family History Noncontributory Social History Smoking Status: Former Smoker Smokeless Tobacco Use: No Alcohol Use: none Drug Use: none Marital Status: Housing status: lives with family Occupational Status: retired Immunizations History of Influenza Vaccine: Yes History of Tetanus Vaccine?: Yes History of Pneumococcal: Yes History of Hepatitis B Vaccine: Unknown Multi-Drug Resistant Organisms History of MDRO: No Allergies Coded Allergies: Doxycycline (Verified Allergy, Mild, ., 07/14/17) Iodinated Diagnostic Agents (Verified Allergy, Unknown, `, 07/14/17) Penicillins (Verified Allergy, Unknown, 07/14/17) Home Medications Scheduled Albuterol Hfa (Ventolin Hfa), 1 PUFFS INH AMHS Azithromycin (Zithromax), 250 MG PO DAILY Beclomethasone Dip (Beconase Aq), 1 SPRAY EDI BID Brimonidine Tartrate (Alphagan P), 1 DROPS OPL BID Desloratadine (Clarinex), 5 MG PO DAILY Diclofenac Sodium (Topical) (Voltaren 1% Top Gel), 1 APPLN TOP HS Donepezil Hydrochloride (Donepezil Hcl), 5 MG PO HS Fluticasone-Salmeterol 230/21 Mcg (Advair Hfa 230/21 Mcg), 2 PUFFS INH BID Furosemide (Lasix), 40 MG PO Q2D Gabapentin (Neurontin), 300 MG PO QID Hctz/Spironolactone 25MG/25MG (Aldactazide 25MG/25MG), 1 TAB PO DAILY Losartan Potassium (Cozaar), 50 MG PO DAILY Multivitamins/Minerals (Mvi With Minerals), 1 TAB PO DAILY Pravastatin Sodium (Pravachol), 10 MG PO DAILY Tramadol Hcl (Ultram), 50 MG PO BID PRN Scheduled PRN Acetaminophen (Tylenol), 1,000 MG PO Q8 PRN for Pain Azithromycin (Zithromax Z-Aidan), 1 PKT PO UD PRN for RESCUE KIT Review of Systems The patient denies chest pain, palpitations, lower extremity swelling, vision change, hearing change, sore throat, fevers, chills, sweats, nausea, vomiting, diarrhea or constipation, abdominal pain, pelvic pain, blood in urine or stool, dysuria, urinary frequency or urgency, lightheadedness, dizziness, headache, rash, abnormal bruising or bleeding, imbalance, focal weakness, numbness or tingling in arms or legs, generalized arthralgias or myalgias, back or neck pain , night sweats. The review of systems is otherwise negative other than for that already noted above, and at least 10 systems have been reviewed. Physical Exam Vital Signs Date Time Temp Pulse Resp B/P (MAP) Pulse Ox O2 Delivery O2 Flow Rate FiO2 07/14/17 03:25 88 18 98 Mask 6.0 07/14/17 02:35 36.6 92 22 159/70 99 Mask 5.0 07/14/17 02:22 87 17 138/65 98 07/14/17 01:16 86 20 98 Oxymask 5.0 07/14/17 00:16 80 19 100 07/13/17 23:44 99 Non-Rebreather 15.0 07/13/17 23:31 80 07/13/17 23:24 37.0 99 18 133/75 88 Nasal Cannula 4.0 07/13/17 23:19 133/75 The patient is awake, well-developed and adequately nourished, alert and oriented 3, normocephalic and atraumatic, lying in bed and in no acute distress. HEENT--PERRL, EOMI, mucous membranes and oropharynx dry. Neck--supple, no JVD or bruits, thyroid normal, trachea midline, no adenopathy. Heart--normal S1 and S2, no extra beats, no murmurs, rubs or gallops. Lungs--crackles at the bases to half way up bilaterally, no respiratory distress , no accessory muscle use. Abdomen--normal bowel sounds and soft, nontender and nondistended, no hernias or masses, no organomegaly. Extremities--no cyanosis, clubbing. 2+ bilateral pretibial pitting edema. There are good distal pulses b/l. Dermatologic--normal skin turgor, normal color, warm and dry, no abnormal lymph nodes, no rash. Neurologic--cranial nerves II through XII grossly intact. Rheumatologic--limited range of motion. Psychiatric--normal affect. Diagnostics Laboratory Results Results Past 24 Hours Test 07/14/17 00:05 07/14/17 00:13 Range/Units White Blood Count 8.54 4.8-10.8 K/uL Red Blood Count 2.93 4.2-5.4 M/uL Hemoglobin 8.6 12.0-16.0 g/dL Hematocrit 30.1 37-47 % Mean Corpuscular Volume 102.7 80-100 fL Mean Corpuscular Hemoglobin 29.4 25-34 pg Mean Corpuscular Hemoglobin Concent 28.6 32-36 g/dl Platelet Count 199 130-400 K/uL Mean Platelet Volume 9.8 7.4-10.4 fL Neutrophils (%) (Auto) 78.9 % Lymphocytes (%) (Auto) 9.5 % Monocytes (%) (Auto) 8.0 % Eosinophils (%) (Auto) 2.9 % Basophils (%) (Auto) 0.5 % Neutrophils # (Auto) 6.74 1.4-6.5 K/uL Lymphocytes # (Auto) 0.81 1.2-3.4 K/uL Monocytes # (Auto) 0.68 0.11-0.59 K/uL Eosinophils # (Auto) 0.25 0-0.5 K/uL Basophils # (Auto) 0.04 0-0.2 K/uL RDW Standard Deviation 51.6 36.4-46.3 fL RDW Coefficient of Variation 13.7 11.5-14.5 % Immature Granulocyte % (Auto) 0.2 % Immature Granulocyte # (Auto) 0.02 0.00-0.02 K/uL Basophilic Stippling 1+ Stomatocytes 1+ Prothrombin Time 10.7 9.0-12.0 SECONDS Prothromb Time International Ratio 1.0 0.9-1.1 Activated Partial Thromboplast Time 23.1 21.0-31.0 SECONDS Partial Thromboplastin Ratio 0.9 Sodium Level 141 136-145 mmol/L Potassium Level 4.9 3.5-5.1 mmol/L Chloride Level 96 98-107 mmol/L Carbon Dioxide Level 49 21-32 mmol/L Anion Gap -4.0 3-11 mmol/L Blood Urea Nitrogen 40 7-18 mg/dl Creatinine 1.10 0.60-1.20 mg/dl Est Creatinine Clear Calc Drug Dose 38.9 ml/min Estimated GFR () 52.3 Estimated GFR (Non- 45.1 BUN/Creatinine Ratio 36.8 10-20 Random Glucose 120 70-99 mg/dl Calcium Level 9.8 8.5-10.1 mg/dl Pro-B-Type Natriuretic Peptide 407 0-1800 pg/ml Chemistry Specimen Hemolysis Bedside Troponin I < 0.030 0-0.045 ng/ml EKG EKG shows normal sinus rhythm at 82 bpm, no acute ST-T changes, and no change compared to 02/20/2017. Impression Assessment and Plan Acute respiratory failure/CHF exacerbation/pneumonia with parapneumonic effusion -- The patient will be admitted to telemetry for serial cardiac enzymes, cardiac rhythm monitoring and a 2-D echocardiogram with Dopplers. Ceftriaxone 1 g IV daily. Levofloxacin 500 mg IV every 24 hours. Xopenex/Atrovent nebulizer every 6 hours while awake and every 2 hours when necessary. Follow serial CBC with differential, BMP and magnesium levels. Hold Advair Diskus and Ventolin HFA Hypertension/CHF-- HCTZ/spironolactone 25/25 by mouth daily, losartan 50 mg by mouth daily. Hold by mouth furosemide. Place on Lasix 40 mg IV twice a day with first dose now. GPN-- Gabapentin 300 mg by mouth 4 times a day. Hyperlipidemia--pravastatin 10 mg by mouth daily. Dementia--donepezil 5 mg by mouth at bedtime. Seasonal allergy--Clarinex 5 mg by mouth daily and Beconase AQ 1 sprays nostril twice a day. Glaucoma--continue Alphagan P. Pain control--continue tramadol and Voltaren gel. Level of Care Telemetry Advanced Directives Existing Advance Directive: No Existing Living Will: Yes Existing Power of Pie Baker: Yes Resuscitation Status FULL RESUSCITATION VTE Prophylaxis VTE Risk Assessment Done? Y/N: Yes Risk Level: Moderate Given or contraindicated: SCD's
[2017-07-14 03:49] LABS: ALKALINE PHOSPHATASE 90 U/L (45-117); ALT/SGPT 16 U/L (12-78); AST/SGOT 22 U/L (15-37)
[2017-07-14] MEDS ORDERED: LEVOFLOXACIN / D5W 500 MG in PREMIXED IN D5W 100 ML IV SCH (04:00)
[2017-07-14] MEDS: CEFTRIAXONE SOD INJ 1 GM in DEXTROSE 5% ADD-VANTAGE 50ML 50 ML IV SCH (05:27)
--- NOTE | 2017-07-14 06:10 | DIAGNOSTIC IMAGING REPORT ---
CHEST ONE VIEW PORTABLE CLINICAL HISTORY: eval for chf dyspnea COMPARISON STUDY: 02/20/2017 FINDINGS: Stable cardia megaly. Mild increase in pulmonary vasculature compared to the prior study. Probable small left effusion. IMPRESSION: Cardiomegaly. Probable congestive failure. The above report was generated using voice recognition software. It may contain grammatical, syntax or spelling errors. Electronically signed by: Luis Carlos Lawrence M.D. 07/14/2017 6:08 AM Dictated Date/Time: 07/14/2017 6:08 AM
[2017-07-14] MEDS: CLARINEX~ORDER AWAITING ACTION SCH ×2 (08:00→14:13)
[2017-07-14] MEDS: BRIMONIDINE TARTRATE-P 0.15% 5 ML BTL OPL SCH ×2 (08:28→21:06)
[2017-07-14] MEDS: FUROSEMIDE INJ 40 MG in SYRINGE 0 ML IV SCH ×2 (08:28→17:54)
[2017-07-14] MEDS: CEROVITE ADV FORMULA TAB PO SCH (08:29)
[2017-07-14] MEDS: GABAPENTIN 300 MG CAP PO SCH ×4 (08:29→21:05)
[2017-07-14] MEDS: PRAVASTATIN SOD 20 MG TAB PO SCH (08:30)
[2017-07-14] MEDS: HEPARIN SOD 5000 UNIT/0.5 ML CARP SQ SCH ×2 (08:33→21:07)
[2017-07-14] MEDS ORDERED: LOSARTAN POTASSIUM 50 MG TAB PO SCH (09:00)
[2017-07-14] MEDS ORDERED: SPIRONOLACTONE/HCTZ 25-25 PO SCH (09:00)
--- NOTE | 2017-07-14 12:30 | ECHOCARDIOGRAM REPORT ---
*NOTICE TO RECEIVING LIBERTARIAN AGENCY This information is strictly Confidential and protected under [place] law. [place] law prohibits you from making any further disclosure of this information unless further disclosure is expressly permitted by the written consent of the person to whom it pertains or is authorized by law. A general authorization for the release of medical or other information is not sufficient for this purpose. Hospital accepts no responsibility if the information is made available to any other person, INCLUDING THE PATIENT. Interpretation Summary * Name: RUBEN SNOW Study Date: 07/14/2017 07:29 AM BP: 159/70 mmHg * Patient Location: C.2T\S\S240\S\1 HR: 89 * : 1930 (M/d/yy) Gender: Female Height: 61 in * Age: 86 yrs Ethnicity: CA Weight: 219 lb * Ordering Physician: Andre Pinon * Referring Physician: Self, Referred * Performed By: Dieter Lara RDCS * * Reason For Study: CHF * BSA: 2.0 m2 * -- Conclusions -- * 1. Normal LV size. Mild concentric LVH. * 2. Normal LV systolic function. LVEF 65-70%. No regional wall motion abnormalities. * 3. Normal RV size and function. * 4. Grade I diastolic dyfunction. * 5. Mild aortic regurgitation. Mild aortic valve sclerosis without stenosis. * 6. Mobile echodense structure involving posterior mitral valve leaflet. Suspect redudant/ruptured chordae vs possible calcified old vegetation. Structure present on prior echo in 2011. Procedure Details * A complete two-dimensional transthoracic echocardiogram was performed (2D, M-mode, Doppler and color flow Doppler). * The study was technically adequate. Left Ventricle * The left ventricle is grossly normal size. * There is mild concentric left ventricular hypertrophy. * Ejection Fraction = 65-70%. * No regional wall motion abnormalities noted. Right Ventricle * The right ventricle is grossly normal size. * The right ventricular systolic function is normal as assessed by tricuspid annular plane systolic excursion (TAPSE) (normal >1.5 cm). Atria * Borderline left atrial enlargement. * Right atrial size is normal. * No ASD detected; PFO is not assessed. Mitral Valve * There is mild to moderate mitral annular calcification. * Calcified mitral apparatus. * Mobile echodense structure involving posterior mitral valve leaflet. Suspect redudant/ruptured chordae but cannot rule out vegetation. * There is no mitral valve stenosis. * Significant mitral regurgitation is absent. Tricuspid Valve * The tricuspid valve is not well visualized, but is grossly normal. * Tricuspid stenosis is absent. * There is trace tricuspid regurgitation. Aortic Valve * The aortic valve opens well. * Aortic valve sclerosis mild, without significant aortic valvular stenosis. * No hemodynamically significant valvular aortic stenosis. * Mild aortic regurgitation. Pulmonic Valve * The pulmonary valve is inadequately visualized, but the Doppler data is adequate for interpretation. * Pulmonic stenosis is absent. * Trace pulmonic valvular regurgitation. Great Vessels * The aortic root and proximal ascending aorta are normal sized. Pericardium/Pleural * There is no pericardial effusion. Great Vessels * Normal inferior vena cava size and collapsability with sniff indicates a normal right atrial pressure of 3 mmHg * There is no evidence of pulmonary hypertension. The PA systolic pressure is less than 36 mmHg. Left Ventricular Diastolic Function * Grade I diastolic dysfunction, (abnormal relaxation pattern). MMode 2D Measurements and Calculations IVSd 1.3 cm IVSs 1.8 cm LVIDd 5.0 cm LVIDs 3.2 cm LVPWd 1.4 cm LVPWs 2.0 cm IVS/LVPW 0.98 FS 36.7 % EDV(Teich) 119.5 ml ESV(Teich) 40.4 ml EF(Teich) 66.2 % EDV(cubed) 126.8 ml ESV(cubed) 32.2 ml EF(cubed) 74.6 % % IVS thick 36.1 % % LVPW thick 42.4 % LV mass(C)d 282.2 grams LV mass(C)dI 143.7 grams/m\S\2 LV mass(C)s 256.2 grams LV mass(C)sI 130.5 grams/m\S\2 SV(Teich) 79.2 ml SI(Teich) 40.3 ml/m\S\2 SV(cubed) 94.6 ml SI(cubed) 48.2 ml/m\S\2 EPSS 0.73 cm Ao root diam 3.3 cm Ao root area 8.3 cm\S\2 ACS 2.0 cm LA dimension 3.2 cm asc Aorta Diam 4.2 cm LA/Ao 10 LVOT diam 1.9 cm LVOT area 2.8 cm\S\2 LVAd ap4 24.6 cm\S\2 LVLd ap4 6.4 cm EDV(MOD-sp4) 78.9 ml LVAs ap4 12.5 cm\S\2 LVLs ap4 5.2 cm ESV(MOD-sp4) 24.9 ml EF(MOD-sp4) 68.4 % LVAd ap2 25.5 cm\S\2 LVLd ap2 7.3 cm EDV(MOD-sp2) 74.8 ml LVAs ap2 12.9 cm\S\2 LVLs ap2 6.0 cm ESV(MOD-sp2) 23.7 ml EF(MOD-sp2) 68.3 % SV(MOD-sp4) 54.0 ml SI(MOD-sp4) 27.5 ml/m\S\2 SV(MOD-sp2) 51.1 ml SI(MOD-sp2) 26.0 ml/m\S\2 Doppler Measurements and Calculations MV E max charly 115.1 cm/sec MV A max charly 123.0 cm/sec MV E/A 0.94 MV dec time 0.19 sec Ao V2 max 243.8 cm/sec Ao max PG 23.9 mmHg Ao max PG (full) 15.6 mmHg Ao V2 mean 167.4 cm/sec Ao mean PG 12.8 mmHg Ao mean PG (full) 8.3 mmHg Ao V2 VTI 49.3 cm ADRIÁN(I,A) 1.5 cm\S\2 ADRIÁN(I,D) 1.5 cm\S\2 ADRIÁN(V,A) 1.6 cm\S\2 ADRIÁN(V,D) 1.6 cm\S\2 AI end-d charly 323.9 cm/sec AI max charly 401.0 cm/sec AI max PG 64.3 mmHg AI dec slope 255.3 cm/sec\S\2 AI P1/2t 460.0 msec LV V1 max PG 8.3 mmHg LV V1 mean PG 4.6 mmHg LV V1 max 143.7 cm/sec LV V1 mean 100.2 cm/sec LV V1 VTI 26.1 cm SV(Ao) 410.4 ml SI(Ao) 209.0 ml/m\S\2 SV(LVOT) 72.8 ml SI(LVOT) 37.1 ml/m\S\2 PA V2 max 143.9 cm/sec PA max PG 8.3 mmHg PA acc slope 1056.1 cm/sec\S\2 PA acc time 0.07 sec PI end-d charly 157.5 cm/sec PA pr(Accel) 45.7 mmHg
[2017-07-14 18:49] LABS: CKMB/CK RATIO 1.5 (0-3.0)
[2017-07-14] MEDS: ACETAMINOPHEN 325 MG TAB PO PRN (19:39)
[2017-07-14] MEDS: DICLOFENAC SOD 1% GEL 100 GM TUBE EXT SCH (21:00)
[2017-07-14] MEDS: DONEPEZIL HCL 5 MG TAB PO SCH (21:06)
[2017-07-15] VITALS (13 sets, daily range): BP systolic 107–131; BP diastolic 56–71; PULSE 78–96; TEMP 36.4–37.2; O2SAT 86–98
[2017-07-15] MEDS: LEVALBUTEROL 1.25MG/0.5ML NEB INH SCH ×4 (01:38→19:34)
[2017-07-15] MEDS: IPRATROPIUM BROMIDE NEB SOLN 0.02% 2.5 ML VIAL INH SCH ×4 (01:38→19:34)
[2017-07-15] MEDS: LEVOFLOXACIN 250MG / D5W IV SCH (04:21)
[2017-07-15] MEDS: CEFTRIAXONE SOD INJ 1 GM in DEXTROSE 5% ADD-VANTAGE 50ML 50 ML IV SCH (04:21)
[2017-07-15 07:15] LABS: HEMATOCRIT 29.4 % (37-47); MEAN CELL VOLUME 103.5 fL (80-100); MEAN CORPUSCULAR HEMOGLOBIN 29.2 pg (25-34); MEAN CORPUSCULAR HGB CONC 28.2 g/dl (32-36); MEAN PLATELET VOLUME 9.8 fL (7.4-10.4); PLATELET COUNT 189 K/uL (130-400); RED BLOOD COUNT 2.84 M/uL (4.2-5.4); WHITE BLOOD COUNT 7.69 K/uL (4.8-10.8)
[2017-07-15 07:38] LABS: BUN/CREATININE RATIO 33.2 (10-20); CALCIUM 9.7 mg/dl (8.5-10.1); CREATININE 1.5 mg/dl (0.60-1.20); MAGNESIUM 1.9 mg/dl (1.8-2.4); POTASSIUM 4.7 mmol/L (3.5-5.1)
[2017-07-15] MEDS: CLARINEX~ORDER AWAITING ACTION SCH ×4 (08:00→20:18)
[2017-07-15 08:16] LABS: BASO % 0.4 %; BASO ABS # 0.03 K/uL (0-0.2); COMPLETE YES; EOS % 1.8 %; IG% 0.3 %; LYMPH % 11.4 %; LYMPH ABS # 0.88 K/uL (1.2-3.4); MONO % 7.3 %; NEUT % 78.8 %
[2017-07-15] MEDS: CEROVITE ADV FORMULA TAB PO SCH (08:39)
[2017-07-15] MEDS: BRIMONIDINE TARTRATE-P 0.15% 5 ML BTL OPL SCH ×2 (08:42→20:15)
[2017-07-15] MEDS: GABAPENTIN 300 MG CAP PO SCH ×4 (08:43→20:15)
[2017-07-15] MEDS: PRAVASTATIN SOD 20 MG TAB PO SCH (08:43)
[2017-07-15] MEDS: HEPARIN SOD 5000 UNIT/0.5 ML CARP SQ SCH ×2 (08:53→20:17)
--- NOTE | 2017-07-15 09:21 | DIAGNOSTIC IMAGING REPORT ---
CHEST ONE VIEW PORTABLE CLINICAL HISTORY: shortness of breath, pleural effusions, PNA COMPARISON STUDY: 07/23/2017 FINDINGS: Stable cardiomegaly. Unchanging calcified hilar mediastinal nodes. Improving pulmonary vascular congestion. IMPRESSION: Improving pulmonary vascular congestion. Stable cardiomegaly. The above report was generated using voice recognition software. It may contain grammatical, syntax or spelling errors. Electronically signed by: Luis Carlos Lawrence M.D. 07/15/2017 9:20 AM Dictated Date/Time: 07/15/2017 9:19 AM
[2017-07-15] MEDS ORDERED: GUAIFENESIN 600 MG TABCR PO ONE ×2 (09:53→10:00)
[2017-07-15 09:57] LABS: ARTERIAL BLD GAS O2 SATURATION 93.6 % (90-95); ARTERIAL BLOOD GAS BASE EXCESS 13.8 mEq/L (-9-1.8); ARTERIAL BLOOD GAS HCO3 43 mmol/L (19-24); ARTERIAL BLOOD GAS PO2 87 mm/Hg (80-95)
[2017-07-15 09:58] LABS: ALLEN TEST POS (POS)
[2017-07-15 09:59] LABS: O2 ADMINISTRATION 4L
[2017-07-15] MEDS: METHYLPREDNISOLONE IV 60 MG in SYRINGE 0 ML IV SCH ×2 (10:08→17:12)
--- NOTE | 2017-07-15 14:09 | Progress Note ---
Subjective Date of Service: Jul 15, 2017. Subjective Pt evaluation today including: conversation w/ patient, physical exam, chart review, lab review, review of studies, review of inpatient medication list Pt lethargic this AM Difficult to arouse Stable saturations No acute events overnight Problem List Medical Problems: (1) Ambulatory dysfunction Status: Acute (2) Anemia Status: Acute (3) CHF (congestive heart failure) Status: Acute (4) MELISSA (dyspnea on exertion) Status: Acute (5) Generalized weakness Status: Acute (6) Hypoxia Status: Acute Review of Systems Unable to obtain due to lethargic state Objective Vital Signs Date Time Temp Pulse Resp B/P (MAP) Pulse Ox O2 Delivery O2 Flow Rate FiO2 07/15/17 12:00 BiPAP 07/15/17 11:38 37.0 83 20 120/56 (77) 98 Nasal Cannula 4.0 07/15/17 11:28 80 94 35 07/15/17 08:00 Nasal Cannula 4.0 Humidified Oxygen 07/15/17 07:08 83 18 96 Nasal Cannula 4.0 07/15/17 07:04 36.8 86 19 114/68 (83) 92 Nasal Cannula 4.0 07/15/17 04:00 Nasal Cannula 4.0 Humidified Oxygen 07/15/17 03:30 36.7 96 22 107/60 (76) 91 Nasal Cannula 4.0 07/14/17 23:59 Nasal Cannula 4.0 Humidified Oxygen 07/14/17 23:12 36.7 81 20 118/66 (83) 97 Nasal Cannula 4.0 07/14/17 20:00 Nasal Cannula 4.0 Humidified Oxygen 07/14/17 19:56 37.3 82 18 115/61 (79) 96 07/14/17 16:00 Nasal Cannula 4.0 Humidified Oxygen 07/14/17 15:47 36.9 88 18 116/62 (80) 95 Nasal Cannula 4.0 07/14/17 14:09 81 18 91 Nasal Cannula 4.0 Physical Exam General Appearance: WD/WN, no apparent distress Neck: supple, no adenopathy, thyroid normal Respiratory/Chest: chest non-tender, no respiratory distress, no accessory muscle use, + wheezing Cardiovascular: no edema, no gallop, no JVD, no murmur Abdomen: non tender, soft, no organomegaly Extremities: normal range of motion, non-tender, normal inspection Neurologic/Psychiatric: no motor/sensory deficits, normal mood/affect, oriented x 3 Laboratory Results Last 24 Hours Test 07/14/17 18:09 07/15/17 06:16 07/15/17 09:34 07/15/17 14:00 Total Creatine Kinase 33 U/L Creatine Kinase MB 0.5 ng/ml Creatine Kinase MB Ratio 1.5 Troponin I < 0.015 ng/ml White Blood Count 7.69 K/uL Red Blood Count 2.84 M/uL Hemoglobin 8.3 g/dL Hematocrit 29.4 % Mean Corpuscular Volume 103.5 fL Mean Corpuscular Hemoglobin 29.2 pg Mean Corpuscular Hemoglobin Concent 28.2 g/dl Platelet Count 189 K/uL Mean Platelet Volume 9.8 fL Neutrophils (%) (Auto) 78.8 % Lymphocytes (%) (Auto) 11.4 % Monocytes (%) (Auto) 7.3 % Eosinophils (%) (Auto) 1.8 % Basophils (%) (Auto) 0.4 % Neutrophils # (Auto) 6.06 K/uL Lymphocytes # (Auto) 0.88 K/uL Monocytes # (Auto) 0.56 K/uL Eosinophils # (Auto) 0.14 K/uL Basophils # (Auto) 0.03 K/uL RDW Standard Deviation 52.9 fL RDW Coefficient of Variation 13.9 % Immature Granulocyte % (Auto) 0.3 % Immature Granulocyte # (Auto) 0.02 K/uL Red Blood Cell Morphology Unremarkable Sodium Level 137 mmol/L Potassium Level 4.7 mmol/L Chloride Level 91 mmol/L Carbon Dioxide Level 51 mmol/L Anion Gap -5.0 mmol/L Blood Urea Nitrogen 50 mg/dl Creatinine 1.50 mg/dl Est Creatinine Clear Calc Drug Dose 27.2 ml/min Estimated GFR () 35.9 Estimated GFR (Non- 31.0 BUN/Creatinine Ratio 33.2 Random Glucose 127 mg/dl Calcium Level 9.7 mg/dl Magnesium Level 1.9 mg/dl Arterial Blood pH 7.30 Arterial Blood Partial Pressure CO2 89 mmHg Arterial Blood Partial Pressure O2 87 mm/Hg Arterial Blood HCO3 43 mmol/L Arterial Blood Oxygen Saturation 93.6 % Arterial Blood Base Excess 13.8 mEq/L Arterial Blood Gas Delivery 4L [place] Test POS Assessment and Plan Acute hypercarbic respiratory failure/CHF exacerbation/pneumonia with parapneumonic effusion-- The patient was admitted to telemetry for serial cardiac enzymes, cardiac rhythm monitoring and a 2-D echocardiogram with Dopplers. Ceftriaxone 1 g IV daily in addition to Levofloxacin 500 mg IV every 24 hours. Xopenex/Atrovent nebulizer every 6 hours while awake and every 2 hours when necessary. Follow serial CBC with differential, BMP and magnesium levels. Hold Advair Diskus and Ventolin HFA ABG obtained noted CO2 89, started on BiPAP, will need repeat ABG in AM FERMÍN with likely contraction alkalosis Holding all diuretics, trend BMP Hypertension/CHF-- Hold HCTZ/spironolactone 25/25 by mouth daily and losartan 50 mg by mouth daily. Hold lasix GPN-- Gabapentin 300 mg by mouth 4 times a day. Hyperlipidemia--pravastatin 10 mg by mouth daily. Dementia--donepezil 5 mg by mouth at bedtime. Seasonal allergy--Clarinex 5 mg by mouth daily and Beconase AQ 1 sprays nostril twice a day. Glaucoma--continue Alphagan P. Pain control--continue tramadol and Voltaren gel.
[2017-07-15 15:22] LABS: BUN/CREATININE RATIO 29.7 (10-20); CALCIUM 9.8 mg/dl (8.5-10.1); CREATININE 1.8 mg/dl (0.60-1.20); POTASSIUM 4.9 mmol/L (3.5-5.1)
[2017-07-15] MEDS: DICLOFENAC SOD 1% GEL 100 GM TUBE EXT SCH (20:15)
[2017-07-15] MEDS: TRAMADOL HCL 50 MG TAB PO PRN (20:15)
[2017-07-15] MEDS: GUAIFENESIN 600 MG TABCR PO SCH (20:16)
[2017-07-15] MEDS: DONEPEZIL HCL 5 MG TAB PO SCH (20:17)
[2017-07-16] VITALS (11 sets, daily range): BP systolic 114–151; BP diastolic 63–71; PULSE 68–92; TEMP 36.7–37.1; O2SAT 91–98
[2017-07-16] MEDS: ACETAMINOPHEN 325 MG TAB PO PRN ×3 (01:26→19:21)
[2017-07-16] MEDS: METHYLPREDNISOLONE IV 60 MG in SYRINGE 0 ML IV SCH ×3 (01:26→18:15)
[2017-07-16] MEDS: IPRATROPIUM BROMIDE NEB SOLN 0.02% 2.5 ML VIAL INH SCH ×4 (01:38→19:07)
[2017-07-16] MEDS: LEVALBUTEROL 1.25MG/0.5ML NEB INH SCH ×4 (01:38→19:07)
[2017-07-16] MEDS: LEVOFLOXACIN 250MG / D5W IV SCH (02:45)
[2017-07-16] MEDS: CEFTRIAXONE SOD INJ 1 GM in DEXTROSE 5% ADD-VANTAGE 50ML 50 ML IV SCH (04:15)
[2017-07-16 07:37] LABS: HEMATOCRIT 30.4 % (37-47); MEAN CELL VOLUME 101.7 fL (80-100); MEAN CORPUSCULAR HEMOGLOBIN 29.1 pg (25-34); MEAN CORPUSCULAR HGB CONC 28.6 g/dl (32-36); MEAN PLATELET VOLUME 9.9 fL (7.4-10.4); PLATELET COUNT 203 K/uL (130-400); RED BLOOD COUNT 2.99 M/uL (4.2-5.4); WHITE BLOOD COUNT 5.61 K/uL (4.8-10.8)
[2017-07-16 07:44] LABS: COMPLETE YES; HYPOCHROMIA PRESENT; IG% 0.2 %; LYMPH % 6.2 %; LYMPH ABS # 0.35 K/uL (1.2-3.4); MONO % 1.8 %; NEUT % 91.8 %
[2017-07-16 07:48] LABS: BUN/CREATININE RATIO 35.3 (10-20); CALCIUM 9.5 mg/dl (8.5-10.1); CREATININE 1.8 mg/dl (0.60-1.20); MAGNESIUM 2.2 mg/dl (1.8-2.4); POTASSIUM 4.7 mmol/L (3.5-5.1)
[2017-07-16] MEDS: CLARINEX~ORDER AWAITING ACTION SCH ×3 (08:00→21:54)
--- NOTE | 2017-07-16 08:13 | Clinical Documentation Query ---
BRIANNE Fritz : CLINICAL DOCUMENTATION QUERY Patient is an 86 year old female admitted for evaluation and treatment of CHF (unspecified) in the setting of acute hypercarbic respiratory failure and pneumonia with parapneumonic effusion. Echocardiogram demonstrated normal biventricular systolic function. Please specify the type of CHF in your patient. Additionally, EMR review demonstrates an estimated GFR range from 05/20/15 to present of 25-51 ml/min. Please clarify as clinically appropriate. Thank you. In your clinical opinion is this patient being managed for: ( ) Cardiorenal syndrome; FERMÍN on CKD stage 3 in the setting of acute on chronic diastolic CHF ( ) Not Agree ( ) Other explanation of clinical findings (Please Explain) ( ) Unable to determine (Please Define) ( ) Need to Discuss The medical record reflects the following clinical findings, treatment, and risk factors. Clinical Indicators: As above Treatment: Telemetry, echocardiogram, diuresis, serial chemistries, I/O, daily weights, AHA diet Risk Factors: Age, history of CHF, hypertension Please clarify and document your clinical opinion in the progress notes and discharge summary. Terms such as "probable", "suspected", "likely", "questionable", "possible", or "still to be ruled out" are acceptable. IF IN AGREEMENT, YOU MUST DOCUMENT ABOVE DIAGNOSTIC STATEMENT IN DAILY PROGRESS NOTES AND DISCHARGE SUMMARY. This document is not part of the patient's record. Thank You, Jose Angel Regalado RN [phone]
[2017-07-16] MEDS: BRIMONIDINE TARTRATE-P 0.15% 5 ML BTL OPL SCH ×2 (08:28→19:56)
[2017-07-16] MEDS: GUAIFENESIN 600 MG TABCR PO SCH ×2 (08:31→19:56)
[2017-07-16] MEDS: PRAVASTATIN SOD 20 MG TAB PO SCH (08:33)
[2017-07-16] MEDS: GABAPENTIN 300 MG CAP PO SCH ×5 (08:33→19:56)
[2017-07-16] MEDS: CEROVITE ADV FORMULA TAB PO SCH (08:33)
[2017-07-16] MEDS: HEPARIN SOD 5000 UNIT/0.5 ML CARP SQ SCH ×2 (08:37→19:58)
--- NOTE | 2017-07-16 09:23 | Clinical Documentation Query ---
ANUP Monterroso : CLINICAL DOCUMENTATION QUERY Patient is an 86 year old female admitted for evaluation and treatment of CHF (unspecified) in the setting of acute hypercarbic respiratory failure and pneumonia with parapneumonic effusion. Echocardiogram demonstrated normal biventricular systolic function. Please specify the type of CHF in your patient. Additionally, EMR review demonstrates an estimated GFR range from 05/20/15 to present of 25-51 ml/min. Please clarify as clinically appropriate. Thank you. In your clinical opinion is this patient being managed for: ( x ) Cardiorenal syndrome; FERMÍN on CKD stage 3 in the setting of acute on chronic diastolic CHF ( ) Not Agree ( ) Other explanation of clinical findings (Please Explain) ( ) Unable to determine (Please Define) ( ) Need to Discuss The medical record reflects the following clinical findings, treatment, and risk factors. Clinical Indicators: As above Treatment: Telemetry, echocardiogram, diuresis, serial chemistries, I/O, daily weights, AHA diet Risk Factors: Age, history of CHF, hypertension Please clarify and document your clinical opinion in the progress notes and discharge summary. Terms such as "probable", "suspected", "likely", "questionable", "possible", or "still to be ruled out" are acceptable. IF IN AGREEMENT, YOU MUST DOCUMENT ABOVE DIAGNOSTIC STATEMENT IN DAILY PROGRESS NOTES AND DISCHARGE SUMMARY. This document is not part of the patient's record. Thank You, Jose Angel Regalado RN [phone]
[2017-07-16] MEDS: DONEPEZIL HCL 5 MG TAB PO SCH (19:56)
[2017-07-16] MEDS: DICLOFENAC SOD 1% GEL 100 GM TUBE EXT SCH (19:57)
[2017-07-16] MEDS: TRAMADOL HCL 50 MG TAB PO PRN (21:53)
--- NOTE | 2017-07-16 23:39 | Hospitalist Progress Note ---
Hospitalist Progress Note Date of Service Jul 16, 2017. Subjective Pt evaluation today including: conversation w/ patient Feeling better, very alert today and breathing feels at baseline. Coughing productive of clear sputum. All Other Systems: Reviewed and Negative Objective Vital Signs Date Time Temp Pulse Resp B/P (MAP) Pulse Ox O2 Delivery O2 Flow Rate FiO2 07/16/17 20:00 BiPAP 40 07/16/17 19:15 36.9 87 20 151/68 (95) 95 Room Air 07/16/17 19:10 83 18 98 Nasal Cannula 3.5 07/16/17 16:06 Nasal Cannula 3.0 07/16/17 15:05 37.0 88 21 143/71 (95) 91 Nasal Cannula 4.0 07/16/17 13:54 82 18 97 Nasal Cannula 3.5 07/16/17 12:00 Nasal Cannula 3.0 07/16/17 11:37 37.1 75 20 114/63 (80) 95 Nasal Cannula 3.0 07/16/17 08:00 Nasal Cannula 3.0 07/16/17 07:15 71 24 98 BiPAP/CPAP 40 07/16/17 07:15 71 98 40 07/16/17 06:55 36.7 68 20 119/67 (84) 97 BiPAP 07/16/17 04:00 BiPAP 40 07/16/17 03:52 36.9 75 18 126/69 (88) 95 BiPAP 07/16/17 01:40 75 95 40 07/16/17 01:39 75 21 95 BiPAP/CPAP 40 07/15/17 23:59 BiPAP 40 07/15/17 23:21 37.2 84 16 111/61 (78) 95 BiPAP Physical Exam General Appearance: WD/WN, no apparent distress, + obese Eyes: normal inspection, sclerae normal ENT: hearing grossly normal Neck: trachea midline Respiratory/Chest: no respiratory distress, no accessory muscle use, + wheezing (diffuse, diminished air movement throughout) Cardiovascular: regular rate, rhythm, no murmur, + pertinent finding (trace pitting edema legs bilat) Abdomen: normal bowel sounds, non tender, soft (and obese) Extremities: non-tender, no calf tenderness Neurologic/Psychiatric: alert, normal mood/affect Skin: normal color, warm/dry, no rash Laboratory Results Last 24 Hours Test 07/16/17 06:25 White Blood Count 5.61 K/uL Red Blood Count 2.99 M/uL Hemoglobin 8.7 g/dL Hematocrit 30.4 % Mean Corpuscular Volume 101.7 fL Mean Corpuscular Hemoglobin 29.1 pg Mean Corpuscular Hemoglobin Concent 28.6 g/dl Platelet Count 203 K/uL Mean Platelet Volume 9.9 fL Neutrophils (%) (Auto) 91.8 % Lymphocytes (%) (Auto) 6.2 % Monocytes (%) (Auto) 1.8 % Eosinophils (%) (Auto) 0.0 % Basophils (%) (Auto) 0.0 % Neutrophils # (Auto) 5.15 K/uL Lymphocytes # (Auto) 0.35 K/uL Monocytes # (Auto) 0.10 K/uL Eosinophils # (Auto) 0.00 K/uL Basophils # (Auto) 0.00 K/uL RDW Standard Deviation 51.4 fL RDW Coefficient of Variation 13.8 % Immature Granulocyte % (Auto) 0.2 % Immature Granulocyte # (Auto) 0.01 K/uL Hypochromasia PRESENT Basophilic Stippling 1+ Sodium Level 135 mmol/L Potassium Level 4.7 mmol/L Chloride Level 92 mmol/L Carbon Dioxide Level 43 mmol/L Anion Gap 0.0 mmol/L Blood Urea Nitrogen 64 mg/dl Creatinine 1.80 mg/dl Est Creatinine Clear Calc Drug Dose 21.6 ml/min Estimated GFR () 28.8 Estimated GFR (Non- 24.9 BUN/Creatinine Ratio 35.3 Random Glucose 169 mg/dl Calcium Level 9.5 mg/dl Magnesium Level 2.2 mg/dl Assessment and Plan Pt is an 86 yo female with a h/o HTN, chronic diastolic CHF, asthma, sarcoidosis with pulm involvement, dementia, HL, neuropathy, and macrocytic anemia, here with acute hypoxemic respiratory failure and initially suspected PNA with parapneumonic effusion. Acute hypercarbic respiratory failure/Acute on chronic diastolic CHF exacerbation/suspected pneumonia with parapneumonic effusion-- Not likely to have PNA, probably more bronchial asthma exacerbation and diastolic CHF with effusions, Had altered mental status on 07/15 and found to have ABG obtained noted PaCO2 89 , started on BiPAP and improved. Developed worsening renal fxn with diuresis so diuretics now held. ECHO with diastolic dysfxn, mild AI, EF 65-70%, and old calcified vegetation vs ruptured chordae *Last PFT 08/2013 with moderate obstructive disease with significant improvement with bronchodilator, no air trapping, and normal DLCO. *Does have a 35 year history of smoking, quit 30 years ago. -serial cardiac enzymes negative -continue tele -dc Ceftriaxone -continue Levofloxacin for 7 day course -continue Xopenex/Atrovent nebulizer every 6 hours while awake and every 2 hours when necessary. -restart Advair on dc -BiPAP prn and will see if qualifies for home BiPAP use -Consult Pulm placed for hypercarbic respiratory failure -appreciate further recommendations for future management--> question if has COPD given CO retention -will need repeat PFTs as outpt -also needs to turn down O2 here and at home to 3LNC from 5LNC at home to prevent hypercarbia FERMÍN, metabolic alkalosis secondary to contraction plus chronic CO2 retention Holding all diuretics, trend BMP -wean down O2 to prevent decreased respiratory drive causing CO2 retention -renally dose meds, avoid nephrotoxins Hypertension/CHF--clinical evaluator increasing as above, diuretics held Hold HCTZ/spironolactone 25/25 by mouth daily and losartan 50 mg by mouth daily. Hold lasix and restart when clinical evaluator improved Anemia-macrocytic. Hgb 8-9 for the last 4-5 months. Fe studies, B12, Folate all normal in 03/2017, MMA elevated, TSH normal. COuld be MDS -follow CBC -repeat Fe studies, B12, Folate in AM -Hemoccult stool -consider outpt Heme eval GPN-- Gabapentin 300 mg by mouth 4 times a day. Hyperlipidemia--pravastatin 10 mg by mouth daily. Dementia--donepezil 5 mg by mouth at bedtime. Seasonal allergy--Clarinex 5 mg by mouth daily and Beconase AQ 1 sprays nostril twice a day. Glaucoma--continue Alphagan P. Pain control--continue tramadol and Voltaren gel. DVT Proph-SQ heparin
[2017-07-17] VITALS (15 sets, daily range): BP systolic 133–156; BP diastolic 65–75; PULSE 73–87; TEMP 36.5–37.5; O2SAT 90–97
[2017-07-17] MEDS: METHYLPREDNISOLONE IV 60 MG in SYRINGE 0 ML IV SCH ×3 (02:02→21:28)
[2017-07-17] MEDS: LEVALBUTEROL 1.25MG/0.5ML NEB INH SCH ×5 (02:34→19:30)
[2017-07-17] MEDS: IPRATROPIUM BROMIDE NEB SOLN 0.02% 2.5 ML VIAL INH SCH ×5 (02:34→19:30)
[2017-07-17] MEDS: LEVOFLOXACIN 250MG / D5W IV SCH (03:46)
[2017-07-17 06:56] LABS: IG% 0.3 %; LYMPH % 5.2 %; LYMPH ABS # 0.36 K/uL (1.2-3.4); MEAN PLATELET VOLUME 9.6 fL (7.4-10.4); MONO % 2.7 %; NEUT % 91.8 %; PLATELET COUNT 206 K/uL (130-400); WHITE BLOOD COUNT 6.95 K/uL (4.8-10.8)
[2017-07-17 07:31] LABS: BUN/CREATININE RATIO 51.6 (10-20); CALCIUM 9.5 mg/dl (8.5-10.1); CREATININE 1.6 mg/dl (0.60-1.20); MAGNESIUM 2.5 mg/dl (1.8-2.4); POTASSIUM 4.9 mmol/L (3.5-5.1)
[2017-07-17 07:36] LABS: FERRITIN 32.4 ng/ml (8.0-388.0)
[2017-07-17 07:37] LABS: COMPLETE YES
[2017-07-17] MEDS: CLARINEX~ORDER AWAITING ACTION SCH (07:50)
[2017-07-17] MEDS ORDERED: MAGNESIUM HYDROXIDE SUSP 30 ML UDC PO SCH (08:00)
[2017-07-17] MEDS: GABAPENTIN 300 MG CAP PO SCH ×4 (08:03→21:25)
[2017-07-17] MEDS: GUAIFENESIN 600 MG TABCR PO SCH ×2 (08:03→21:27)
[2017-07-17] MEDS: BRIMONIDINE TARTRATE-P 0.15% 5 ML BTL OPL SCH ×2 (08:03→21:25)
[2017-07-17] MEDS: CEROVITE ADV FORMULA TAB PO SCH (08:03)
[2017-07-17] MEDS: PRAVASTATIN SOD 20 MG TAB PO SCH (08:04)
[2017-07-17] MEDS: HEPARIN SOD 5000 UNIT/0.5 ML CARP SQ SCH ×2 (08:09→21:31)
--- NOTE | 2017-07-17 09:46 | Pulmonary Consultation ---
History General Date of Service: Jul 17, 2017. Stated Complaint: Congestive Heart Failure,Hypoxia HPI The patient is a 86 year old female who presents to [facility] with complaints of Congestive Heart Failure,Hypoxia. The patient's primary care provider is Gonzalez Bennett M.D.. Ms. Mensah 86-year-old female with past medical history of chronic anemia, sarcoidosis, asthma , chronic hypoxemia on long-term oxygen therapy at 5 L nasal cannula , diastolic dysfunction, presented on 07/13/2017 with complaints of persistent nasal congestion that started several days prior to admission. Patient has shortness of breath and and dyspnea at baseline which is worsened with minimal activity. She uses a walker to ambulate but for longer distances uses a wheelchair. She denies any fevers, chills, or chest pain. She has chronic rhinitis/sinusitis associated with postnasal drip and cough. She sleeps in a recliner secondary to orthopnea, but denies any paroxysmal nocturnal dyspnea. She denies any recent travel, or sick contacts. She has baseline lower extremity edema that has not changed. As per EMS records, patient was not receiving oxygen secondary to oxygen concentrator malfunction. Upon arrival to the ED initial vital signs were temperature 37, pulse 99, respiratory rate of 18, blood pressure 133/75, nasal Or nasal cannula 4 L. She was placed on 15 L nonrebreather mask which increased SaO2 to 99%. Initial laboratory results showed a white blood cell count of 8.5, hemoglobin of 8.6, platelet count of 199, sodium of 141, potassium 4.9, chloride 96, carbon dioxide level of 49, BUN of 40 and creatinine of 1.1. ProBNP was 407, troponin less than 0.03. Chest x-ray on admission showed cardiomegaly with mild increase in pulmonary vasculature with possible small left pleural effusion. EKG showed normal sinus rhythm at [address]-T changes. She follows with Dr. Bennett as an outpatient, her last PFT was in August 2013 which showed moderate obstructive airway disease with significant improvement after bronchodilator; normal DLCO; no evidence of air trapping. Patient was offered sleep study as outpatient but declined. Her home medications include albuterol HFA 1 puff inhaler, azithromycin 250 mg by mouth daily, beclomethasone one spray to each nose twice a day, Advair 2 puffs inhaler twice a day, Lasix 40 mg by mouth every 2 days, HCTZ/ spironolactone 25 mg/25 mg 1 tab by mouth daily, losartan 50 mg by mouth daily. She was admitted for acute on chronic respiratory insufficiency. She was given ceftriaxone 1 g IV daily, Levaquin 500 milligram IV daily, Xopenex/Atrovent nebulizers every 6 hours. On the morning of 07/15/2017 patient was found to be lethargic and difficult to arouse Physical examination at that time was significant for wheezing. Carbon dioxide level had increased to 51 and creatinine to 1.5. ABG done showed pH of 7.3/89/87 /43/93.6 on 4 L nasal cannula. She was started on BiPAP with improvement of her mental status. Tpday, patient states that she is feeling better. She has no respiratory to complaints. She is complaining of bilateral ear congestion. Laboratory data reviewed this morning shows carbon dioxide level back down to 42. Creatinine decreasing from 1.8 yesterday to 1.6 today and Hemoglobin is stable at 8.7 which is 1.9 L negative balance since admission. Historian: patient, other (EMR) Onset: just prior to arrival Severity: moderate Complaint Status: improved Review of Systems Constitutional: reports: as stated in HPI Eyes: reports: as stated in HPI ENT: reports: as stated in HPI Cardiovascular: reports: as stated in HPI Respiratory: reports: as stated in HPI Gastrointestinal: reports: as stated in HPI Genitourinary - Female: reports: as stated in HPI Musculoskeletal: reports: as stated in HPI Integumentary: reports: as stated in HPI Neurologic: reports: as stated in HPI Psychiatric: reports: as stated in HPI Endocrine: as stated in HPI Hematologic / Lymphatic: as stated in HPI Allergic / Immunologic: as stated in HPI All Other Symptoms All Other Systems: Reviewed and Negative Past Medical History Past Medical History: 1. Allergic rhinitis (J30.9) 2. Anemia (D64.9) 3. Asthma (J45.909) 4. Chronic sinusitis (J32.9) 5. Congestive heart failure (I50.9) 6. Constipation (K59.00) 7. Cor pulmonale (I27.81) 8. Disc degeneration, lumbar (M51.36) 9. Esophageal reflux (K21.9) 10. Fuchs' corneal dystrophy (H18.51) 11. Generalized osteoarthritis of unspecified site (M15.9) 12. Hyperlipidemia (E78.5) 13. Hypertension (I10) 14. Hypoxia (R09.02) 15. Iron deficiency anemia secondary to inadequate dietary iron intake (D50.8) 16. Leg pain, right (M79.604) 17. Lumbar canal stenosis (M48.06) 18. Mild cognitive impairment (G31.84) 19. Nonorganic REM Sleep Behavior Syndrome 20. Osteoarthritis of hip (M16.9) 21. Osteoarthritis of knee (M17.10) 22. Osteoporosis (M81.0) 23. Overweight (E66.3) 24. Palpitations (R00.2) 25. Peripheral neuropathy (G62.9) 26. Perirectal skin irritation (K62.89) 27. Primary osteoarthritis of shoulder (M19.019) 28. Sarcoidosis (D86.9) 29. Vitamin B12 deficiency (E53.8) Past Medical History 1. History of Anemia of chronic disease (D63.8) 2. History of Asthma exacerbation (J45.901) 3. History of Cholelithiasis 4. History of Corneal dystrophy (H18.50) 5. History of Costochondritis (M94.0) 6. History of cataract (Z86.69) 7. History of chest pain (Z87.898) 8. History of diabetes mellitus (Z86.39) 9. History of iron deficiency anemia (Z86.2) 10. History of squamous cell carcinoma of skin (Z85.828) 11. History of Pneumonia 12. History of Spondylolisthesis, acquired (M43.10) 13. History of Thrombophlebitis Of Deep Vessels Of The Lower Extremity Acute 14. History of acute bronchitis (Z87.09) 15. History of acute sinusitis (Z87.09) Past Surgical History: Surgical History 1. History of Cataract Surgery 2. History of Tonsillectomy With Adenoidectomy 3. History of Total Abdominal Hysterectomy With Removal Of Both Ovaries Family History Family History Mother 1. No pertinent family history 2. Family history of Aneurysm Of Abdominal Aorta 3. Family history of Cancer 4. Family history of Hypertension Social History Social History Marital History - Never Drank Alcohol Former smoker--quit 30 years ago Retired From Work Hx Tobacco Use In Past Year?: No Smoking Status: Former Smoker Marital status: Housing status: lives with family Occupational Status: retired Immunizations History of Influenza Vaccine: Yes History of Tetanus Vaccine?: Yes History of Pneumococcal: Yes History of Hepatitis B Vaccine: Unknown History of MDRO History of MDRO: No Allergies Coded Allergies: Doxycycline (Verified Allergy, Mild, ., 07/14/17) Iodinated Diagnostic Agents (Verified Allergy, Unknown, `, 07/14/17) Penicillins (Verified Allergy, Unknown, 07/14/17) Current Medications Reported Home Medications Medications Dose Route/Sig Max Daily Dose Days Date Category Dose Instructions Zithromax Z-Aidan (Azithromycin) 250 Mg Tab 1 Pkt PO UD PRN 5 07/14/17 Reported Zithromax (Azithromycin) 250 Mg Tab 250 Mg PO DAILY 07/14/17 Reported Alphagan P (Brimonidine Tartrate) 75 Drops/5 Ml Soln 1 Drops OPL BID 07/14/17 Reported Donepezil Hcl (Donepezil Hydrochloride) 5 Mg Tab 5 Mg PO HS 07/14/17 Reported Advair Hfa 230/21 Mcg (Fluticasone-Salmeterol 230/21 Mcg) 1 Aer Aer 2 Puffs INH BID 02/20/17 Reported Ventolin Hfa (Albuterol) 200 Puffs/38317 Mcg Aers 1 Puffs INH AMHS 02/20/17 Reported Lasix (Furosemide) 40 Mg Tab 40 Mg PO Q2D 02/20/17 Reported Beconase Aq (Beclomethasone Dip) 200 Sprays/[id number] Mg Aers 1 [place] EDI BID 02/20/17 Reported Aldactazide 25MG/25MG (HCTZ/Spironolactone) 1 Tab Tab 1 Tab PO DAILY 10/01/12 Reported Ultram (Tramadol Hcl) 50 Mg Tab 50 Mg PO BID PRN 10/01/12 Reported PRN PAIN Pravachol (Pravastatin Sodium) 20 Mg Tab 10 Mg PO DAILY 10/01/12 Reported Voltaren 1% Top Gel (Diclofenac Sodium (Topical)) 1 % Gel 1 Appln TOP HS 10/01/12 Reported APPLY TO KNEES AND SHOULDERS Mvi With Minerals (Multivitamins/Minerals) Tab 1 Tab PO DAILY 10/01/12 Reported Cozaar (Losartan Potassium) 50 Mg Tab 50 Mg PO DAILY 10/01/12 Reported Neurontin (Gabapentin) 300 Mg Cap 300 Mg PO QID 10/01/12 Reported Clarinex (Desloratadine) 5 Mg Tab 5 Mg PO DAILY 10/01/12 Reported Tylenol (Acetaminophen) 500 Mg Tab 1,000 Mg PO Q8 PRN 10/01/12 Reported Physical Physical Exam Vital Signs: Date Time Temp Pulse Resp B/P (MAP) Pulse Ox O2 Delivery O2 Flow Rate FiO2 07/17/17 07:59 36.9 79 18 156/75 (102) 95 3.0 07/17/17 07:13 73 18 95 Nasal Cannula 3.0 07/17/17 04:00 Nasal Cannula 3.0 07/17/17 03:44 36.5 79 20 137/65 (89) 97 BiPAP 40 07/17/17 02:35 75 95 40 07/17/17 02:34 75 18 95 BiPAP/CPAP 40 07/16/17 23:59 Nasal Cannula 3.0 07/16/17 23:09 37.0 92 20 138/65 (89) 96 Nasal Cannula 3.0 07/16/17 20:00 Nasal Cannula 3.0 07/16/17 19:15 36.9 87 20 151/68 (95) 95 Nasal Cannula 3.0 07/16/17 19:10 83 18 98 Nasal Cannula 3.5 07/16/17 16:06 Nasal Cannula 3.0 07/16/17 15:05 37.0 88 21 143/71 (95) 91 Nasal Cannula 4.0 07/16/17 13:54 82 18 97 Nasal Cannula 3.5 07/16/17 12:00 Nasal Cannula 3.0 07/16/17 11:37 37.1 75 20 114/63 (80) 95 Nasal Cannula 3.0 General Appearance: WD/WN, NO APPARENT DISTRESS Head: NORMOCEPHALIC, ATRAUMATIC Eyes: PERRLA, NO DISCHARGE, EOMI, SCLERAE NORMAL ENT: other (decreased hearing) Neck: NORMAL RANGE OF MOTION, NO TENDERNESS, TRACHEA MIDLINE Respiratory: other (decreased breath sounds bilaterally) Cardiovasular: REGULAR RATE/RHYTHM, NORMAL S1S2, NO M/G/R Abdomen: NON TENDER, NORMAL BOWEL SOUNDS, other (obese. NT) Back: NORMAL INSPECTION Upper Extremities: NO EDEMA Lower Extremities: NO EDEMA, limited ROM, other (chronic venous changes) Pulses: dorsalis pedis (R) (2+), dorsalis pedis (L) (2+) Neuro: ALERT, ORIENTED x 3, NORMAL MOTOR EXAM, NORMAL SENSATION Psychiatric: NORMAL AFFECT, NO SUICIDAL IDEATION, CONTRACTS FOR SAFETY Diagnostics Labs Results Past 24 Hours Test 07/17/17 06:37 Range/Units White Blood Count 6.95 4.8-10.8 K/uL Red Blood Count 3.00 4.2-5.4 M/uL Hemoglobin 8.7 12.0-16.0 g/dL Hematocrit 30.0 37-47 % Mean Corpuscular Volume 100.0 80-100 fL Mean Corpuscular Hemoglobin 29.0 25-34 pg Mean Corpuscular Hemoglobin Concent 29.0 32-36 g/dl Platelet Count 206 130-400 K/uL Mean Platelet Volume 9.6 7.4-10.4 fL Neutrophils (%) (Auto) 91.8 % Lymphocytes (%) (Auto) 5.2 % Monocytes (%) (Auto) 2.7 % Eosinophils (%) (Auto) 0.0 % Basophils (%) (Auto) 0.0 % Neutrophils # (Auto) 6.38 1.4-6.5 K/uL Lymphocytes # (Auto) 0.36 1.2-3.4 K/uL Monocytes # (Auto) 0.19 0.11-0.59 K/uL Eosinophils # (Auto) 0.00 0-0.5 K/uL Basophils # (Auto) 0.00 0-0.2 K/uL RDW Standard Deviation 51.2 36.4-46.3 fL RDW Coefficient of Variation 14.1 11.5-14.5 % Immature Granulocyte % (Auto) 0.3 % Immature Granulocyte # (Auto) 0.02 0.00-0.02 K/uL Basophilic Stippling 2+ Sodium Level 133 136-145 mmol/L Potassium Level 4.9 3.5-5.1 mmol/L Chloride Level 91 98-107 mmol/L Carbon Dioxide Level 42 21-32 mmol/L Anion Gap 0.0 3-11 mmol/L Blood Urea Nitrogen 83 7-18 mg/dl Creatinine 1.60 0.60-1.20 mg/dl Est Creatinine Clear Calc Drug Dose 24.4 ml/min Estimated GFR () 33.2 Estimated GFR (Non- 28.7 BUN/Creatinine Ratio 51.6 10-20 Random Glucose 179 70-99 mg/dl Calcium Level 9.5 8.5-10.1 mg/dl Magnesium Level 2.5 1.8-2.4 mg/dl Iron Level 45 35-150 mcg/dl Total Iron Binding Capacity 294 250-450 mcg/dl Transferrin 227 200-360 mg/dl Transferrin % Saturation 14 15-50 % Ferritin 32.4 8.0-388.0 ng/ml Vitamin B12 Level 779 211-911 pg/mL Folate > 24.00 >5.38 ng/mL Diagnostic Radiology Chest x-ray 07/15/2017 FINDINGS: Stable cardiomegaly. Unchanging calcified hilar mediastinal nodes. Improving pulmonary vascular congestion. IMPRESSION: Improving pulmonary vascular congestion. Stable cardiomegaly. TTE 07/14/2017 * 1. Normal LV size. Mild concentric LVH. * 2. Normal LV systolic function. LVEF 65-70%. No regional wall motion abnormalities. * 3. Normal RV size and function. * 4. Grade I diastolic dyfunction. * 5. Mild aortic regurgitation. Mild aortic valve sclerosis without stenosis. * 6. Mobile echodense structure involving posterior mitral valve leaflet. Suspect redudant/ruptured chordae vs possible calcified old vegetation. Structure present on prior echo in 2011. Impression Assessment and Plan Acute on chronic hypoxic and hypercapnic respiratory insufficiency Asthma exacerbation Diastolic dysfunction Anemia Patient has acute on chronic respiratory insufficiency associated with both associated worsened hypoxia and hypercapnia. Patient appears to have hypercapnia at baseline. This may be secondary to his obesity hypoventilation syndrome, and obstructive sleep apnea. Patient does have PFT from 2013 that showed moderate obstructive airway disease with significant improvement with bronchodilators. This is suggestive of asthma-like picture. Patient was offered an outpatient sleep study however was never done. Patient was on Lasix which precipitated a metabolic alkalosis with worsened retention of CO2 as well as increased levels of oxygenation would probably decrease her respiratory drive. Nonetheless she responded with improved mental status with the administration of BiPAP. At the present time, I would continue with supplemental oxygen. However we should be careful not to over oxygenate her as this can precipitate worsening CO2. I would maintain her SaO2 between 88-92%. I would use an Ventimask to facilitate this. I would continue with BiPAP at night.Obtain a nocturnal oximetry while inpatient. She may benefit from outpatient sleep study for administration of CPAP as an outpatient and full PFT. Continue with nebulizers when necessary, guaifenesin 600 mg every 12 hours, Solu -Medrol every 8 hours IV and taper. Continue with Claritin for postnasal drip as this can precipitate a cough and wheezing. Continue with PPI to avoid any GERD-like symptoms as well. Upon discharge, I would resume Advair HFA and albuterol. Patient has no signs of infection however she can continue Levaquin for total of 5 days. Continue DVT prophylaxis, OT and PT. She should follow with Dr. Bennett as an outpatient upon discharge. I appreciate the consult.
[2017-07-17 12:36] LABS: ARTERIAL BLD GAS O2 SATURATION 95.9 % (90-95); ARTERIAL BLOOD GAS BASE EXCESS 8.7 mEq/L (-9-1.8); ARTERIAL BLOOD GAS HCO3 35 mmol/L (19-24); ARTERIAL BLOOD GAS PO2 101 mm/Hg (80-95); ARTERIAL BLOOD GAS pH 7.41 (7.35-7.45)
[2017-07-17 12:37] LABS: ALLEN TEST POS (POS); O2 ADMINISTRATION 2 L
--- NOTE | 2017-07-17 13:42 | Hospitalist Progress Note ---
Hospitalist Progress Note Date of Service Jul 17, 2017. Subjective Pt evaluation today including: conversation w/ patient, conversation w/ family Pt feeling better. No complaints, does not walk much at home, uses walker to get from chair or bed to wheelchair due to knee pain All Other Systems: Reviewed and Negative Objective Vital Signs Date Time Temp Pulse Resp B/P (MAP) Pulse Ox O2 Delivery O2 Flow Rate FiO2 07/17/17 12:16 36.8 76 16 146/69 (94) 96 07/17/17 12:01 91 Oxymask 2.0 07/17/17 11:17 92 Oxymask 2.0 07/17/17 08:00 Nasal Cannula 3.0 07/17/17 07:59 36.9 79 18 156/75 (102) 95 3.0 07/17/17 07:13 73 18 95 Nasal Cannula 3.0 07/17/17 04:00 Nasal Cannula 3.0 07/17/17 03:44 36.5 79 20 137/65 (89) 97 BiPAP 40 07/17/17 02:35 75 95 40 07/17/17 02:34 75 18 95 BiPAP/CPAP 40 07/16/17 23:59 Nasal Cannula 3.0 07/16/17 23:09 37.0 92 20 138/65 (89) 96 Nasal Cannula 3.0 07/16/17 20:00 Nasal Cannula 3.0 07/16/17 19:15 36.9 87 20 151/68 (95) 95 Nasal Cannula 3.0 07/16/17 19:10 83 18 98 Nasal Cannula 3.5 07/16/17 16:06 Nasal Cannula 3.0 07/16/17 15:05 37.0 88 21 143/71 (95) 91 Nasal Cannula 4.0 07/16/17 13:54 82 18 97 Nasal Cannula 3.5 Physical Exam General Appearance: WD/WN, no apparent distress, + obese Eyes: normal inspection, sclerae normal Neck: trachea midline Respiratory/Chest: no respiratory distress, no accessory muscle use, + decreased breath sounds (throughout with prolonged exp phase, faint crackles at bases bilat) Cardiovascular: regular rate, rhythm, no murmur, + pertinent finding (trace pitting edema ot knees in legs bilat) Abdomen: normal bowel sounds, non tender, soft (and obese) Extremities: no calf tenderness Neurologic/Psychiatric: alert, normal mood/affect, oriented x 3 Skin: normal color, warm/dry, no rash Laboratory Results Last 24 Hours Test 07/17/17 06:37 07/17/17 12:22 White Blood Count 6.95 K/uL Red Blood Count 3.00 M/uL Hemoglobin 8.7 g/dL Hematocrit 30.0 % Mean Corpuscular Volume 100.0 fL Mean Corpuscular Hemoglobin 29.0 pg Mean Corpuscular Hemoglobin Concent 29.0 g/dl Platelet Count 206 K/uL Mean Platelet Volume 9.6 fL Neutrophils (%) (Auto) 91.8 % Lymphocytes (%) (Auto) 5.2 % Monocytes (%) (Auto) 2.7 % Eosinophils (%) (Auto) 0.0 % Basophils (%) (Auto) 0.0 % Neutrophils # (Auto) 6.38 K/uL Lymphocytes # (Auto) 0.36 K/uL Monocytes # (Auto) 0.19 K/uL Eosinophils # (Auto) 0.00 K/uL Basophils # (Auto) 0.00 K/uL RDW Standard Deviation 51.2 fL RDW Coefficient of Variation 14.1 % Immature Granulocyte % (Auto) 0.3 % Immature Granulocyte # (Auto) 0.02 K/uL Basophilic Stippling 2+ Sodium Level 133 mmol/L Potassium Level 4.9 mmol/L Chloride Level 91 mmol/L Carbon Dioxide Level 42 mmol/L Anion Gap 0.0 mmol/L Blood Urea Nitrogen 83 mg/dl Creatinine 1.60 mg/dl Est Creatinine Clear Calc Drug Dose 24.4 ml/min Estimated GFR () 33.2 Estimated GFR (Non- 28.7 BUN/Creatinine Ratio 51.6 Random Glucose 179 mg/dl Calcium Level 9.5 mg/dl Magnesium Level 2.5 mg/dl Iron Level 45 mcg/dl Total Iron Binding Capacity 294 mcg/dl Transferrin 227 mg/dl Transferrin % Saturation 14 % Ferritin 32.4 ng/ml Vitamin B12 Level 779 pg/mL Folate > 24.00 ng/mL Arterial Blood pH 7.41 Arterial Blood Partial Pressure CO2 56 mmHg Arterial Blood Partial Pressure O2 101 mm/Hg Arterial Blood HCO3 35 mmol/L Arterial Blood Oxygen Saturation 95.9 % Arterial Blood Base Excess 8.7 mEq/L Arterial Blood Gas Delivery 2 L [place] Test POS Assessment and Plan Pt is an 86 yo female with a h/o HTN, chronic diastolic CHF, asthma, sarcoidosis with pulm involvement, dementia, HL, neuropathy, and macrocytic anemia, here with acute hypoxemic respiratory failure and initially suspected PNA with parapneumonic effusion. Acute hypercarbic respiratory failure/Acute on chronic diastolic CHF exacerbation/suspected pneumonia with parapneumonic effusion-- Not likely to have PNA, probably more bronchial asthma exacerbation and diastolic CHF with effusions, Had altered mental status on 07/15 and found to have ABG obtained noted PaCO2 89 , started on BiPAP and improved. Developed worsening renal fxn with diuresis so diuretics now held. ECHO with diastolic dysfxn, mild AI, EF 65-70%, and old calcified vegetation vs ruptured chordae *Last PFT 08/2013 with moderate obstructive disease with significant improvement with bronchodilator, no air trapping, and normal DLCO. *Does have a 35 year history of smoking, quit 30 years ago. Repeat ABG today: 7.41/56/101 on 3 LNC and mentating clearly--> qualifies her for BiPAP at home -ask CM to arrange home BiPAP for nocturnal use at least -serial cardiac enzymes negative -no events on tele--> tx to medical today -dc'd Ceftriaxone -continue Levofloxacin for 7 day course-today day #4 -continue Xopenex/Atrovent nebulizer every 6 hours while awake and every 2 hours when necessary. -flutter valve and chest physiotx ordered by Pulm -restart Advair on dc -BiPAP prn and will see if qualifies for home BiPAP use -Consult Pulm placed for hypercarbic respiratory failure -appreciate further recommendations for future management--> question if has COPD given CO2 retention -will need repeat PFTs as outpt -keep O2 lower at 3LNC from 5LNC at home to prevent hypercarbia FERMÍN, metabolic alkalosis secondary to contraction plus chronic CO2 retention- improving Holding all diuretics, trend BMP -wean down O2 to prevent decreased respiratory drive causing CO2 retention -renally dose meds, avoid nephrotoxins Hypertension/CHF--company controller increasing as above, diuretics held and will continue to do so, watching for fluid overload Hold HCTZ/spironolactone 25/25 by mouth daily and losartan 50 mg by mouth daily. Hold lasix and restart when company controller improved Anemia-macrocytic. Hgb 8-9 for the last 4-5 months. Fe studies, B12, Folate all normal in 03/2017, MMA elevated, TSH normal. COuld be MDS -follow CBC -repeat Fe studies, B12, Folate in AM -Hemoccult stool -consider outpt Heme eval GPN-- Gabapentin 300 mg by mouth 4 times a day. Hyperlipidemia--pravastatin 10 mg by mouth daily. Dementia--donepezil 5 mg by mouth at bedtime. Seasonal allergy--Clarinex 5 mg by mouth daily and Beconase AQ 1 sprays nostril twice a day. Glaucoma--continue Alphagan P. Pain control--continue tramadol and Voltaren gel. DVT Proph-SQ heparin Dispo- to home in 1-2 days after BiPAP arranged
[2017-07-17] MEDS ORDERED: NURSING VERBAL MED ORDER ONE (14:00)
--- NOTE | 2017-07-17 15:12 | Pharmacy Progress Note ---
Automatic IV to PO Conversion Date of Service: Jul 17, 2017. [facility]acy has identified patient as an appropriate candidate for automatic intravenous to oral conversion. Eligible medication: IV LVQ Subjective The patient is a 86 year old female admitted on Jul 14, 2017 at 02:02 for Congestive Heart Failure,Hypoxia. Objective Vital Signs: Vital Signs Past 12 Hours Date Time Temp Pulse Resp B/P (MAP) Pulse Ox O2 Delivery O2 Flow Rate FiO2 07/17/17 14:35 36.8 79 18 94 2.0 07/17/17 14:29 79 18 94 Mask 2.0 07/17/17 12:16 36.8 76 16 146/69 (94) 96 07/17/17 12:01 91 Oxymask 2.0 07/17/17 11:17 92 Oxymask 2.0 07/17/17 08:00 Nasal Cannula 3.0 07/17/17 07:59 36.9 79 18 156/75 (102) 95 3.0 07/17/17 07:13 73 18 95 Nasal Cannula 3.0 07/17/17 04:00 Nasal Cannula 3.0 07/17/17 03:44 36.5 79 20 137/65 (89) 97 BiPAP 40 White Blood Count: Test 07/17/17 06:37 White Blood Count 6.95 K/uL (4.8-10.8) Red Blood Count 3.00 M/uL (4.2-5.4) Hemoglobin 8.7 g/dL (12.0-16.0) Hematocrit 30.0 % (37-47) Mean Corpuscular Volume 100.0 fL (80-100) Mean Corpuscular Hemoglobin 29.0 pg (25-34) Mean Corpuscular Hemoglobin Concent 29.0 g/dl (32-36) Platelet Count 206 K/uL (130-400) Mean Platelet Volume 9.6 fL (7.4-10.4) Neutrophils (%) (Auto) 91.8 % Lymphocytes (%) (Auto) 5.2 % Monocytes (%) (Auto) 2.7 % Eosinophils (%) (Auto) 0.0 % Basophils (%) (Auto) 0.0 % Neutrophils # (Auto) 6.38 K/uL (1.4-6.5) Lymphocytes # (Auto) 0.36 K/uL (1.2-3.4) Monocytes # (Auto) 0.19 K/uL (0.11-0.59) Eosinophils # (Auto) 0.00 K/uL (0-0.5) Basophils # (Auto) 0.00 K/uL (0-0.2) Height (Feet): 5 Height (Inches): 0.00 Weight (Kilograms): 87.900 Type of Diet: Diabetic AHA Phase I Assessment & Plan The Infectious Disease Society and the [place] [employer] recommend conversion to oral therapy once a patient is determined to be clinically stable and are able to tolerate oral medications. Patient identified as appropriate candidate for IV to PO conversion of LVQ 250mg IV daily based on the following criteria: * Afebrile for greater than or equal to 12 hours * Receiving oral/enteral medications and/or tolerating oral/enteral diet for greater than 24 hours * Improvement in clinical condition evidenced by .. WBC count of 6.95 10^3/uL and trending downward, resolution of signs/symptoms of illness * Hemodynamically stable or * Receiving oral medications and/or tolerating oral diet for greater than 24 hours Automatic conversion to: Levaquin 250mg PO every 24 hours
[2017-07-17] MEDS ORDERED: MICONAZOLE NITRATE POWDER 43 GM EXT PRN (16:45)
[2017-07-17] MEDS: ACETAMINOPHEN 325 MG TAB PO PRN (19:33)
[2017-07-17] MEDS: DICLOFENAC SOD 1% GEL 100 GM TUBE EXT SCH (21:26)
[2017-07-17] MEDS: DONEPEZIL HCL 5 MG TAB PO SCH (21:26)
[2017-07-17] MEDS: TRAMADOL HCL 50 MG TAB PO PRN (21:34)
[2017-07-17] MEDS: FLUTICASONE PROPIONATE NA SPR 16 GM BTL SCH (21:44)
[2017-07-18] VITALS (12 sets, daily range): BP systolic 124–146; BP diastolic 71–79; PULSE 67–80; TEMP 36.4–36.8; O2SAT 92–98
[2017-07-18] MEDS: LEVALBUTEROL 1.25MG/0.5ML NEB INH SCH ×4 (01:46→19:10)
[2017-07-18] MEDS: IPRATROPIUM BROMIDE NEB SOLN 0.02% 2.5 ML VIAL INH SCH ×4 (01:47→19:10)
[2017-07-18] MEDS: FLUTICASONE PROPIONATE NA SPR 16 GM BTL SCH ×2 (07:30→20:17)
[2017-07-18] MEDS: BRIMONIDINE TARTRATE-P 0.15% 5 ML BTL OPL SCH ×2 (07:31→20:18)
[2017-07-18] MEDS: GUAIFENESIN 600 MG TABCR PO SCH ×2 (07:31→20:17)
[2017-07-18] MEDS: CEROVITE ADV FORMULA TAB PO SCH (07:31)
[2017-07-18] MEDS: PRAVASTATIN SOD 20 MG TAB PO SCH (07:32)
[2017-07-18] MEDS: GABAPENTIN 300 MG CAP PO SCH ×4 (07:32→20:17)
[2017-07-18] MEDS: LORATADINE 10 MG TAB PO SCH (07:33)
[2017-07-18] MEDS: HEPARIN SOD 5000 UNIT/0.5 ML CARP SQ SCH ×2 (07:40→20:20)
[2017-07-18] MEDS: METHYLPREDNISOLONE IV 60 MG in SYRINGE 0 ML IV SCH (08:59)
[2017-07-18 09:17] LABS: COMPLETE YES; HEMATOCRIT 30.4 % (37-47); IG% 0.4 %; LYMPH % 5.7 %; MEAN CELL VOLUME 98.7 fL (80-100); MEAN CORPUSCULAR HEMOGLOBIN 29.5 pg (25-34); MEAN CORPUSCULAR HGB CONC 29.9 g/dl (32-36); MEAN PLATELET VOLUME 10.2 fL (7.4-10.4); MONO % 5.5 %; NEUT % 88.4 %; PLATELET COUNT 235 K/uL (130-400); RED BLOOD COUNT 3.08 M/uL (4.2-5.4); WHITE BLOOD COUNT 7.05 K/uL (4.8-10.8)
[2017-07-18 09:44] LABS: BUN/CREATININE RATIO 55.9 (10-20); CALCIUM 9.9 mg/dl (8.5-10.1); CREATININE 1.4 mg/dl (0.60-1.20); POTASSIUM 4.9 mmol/L (3.5-5.1)
[2017-07-18] MEDS: LEVOFLOXACIN 250 MG TAB PO SCH (12:01)
[2017-07-18] MEDS ORDERED: BISACODYL 10 MG SUPP PR PRN (15:45)
[2017-07-18] MEDS ORDERED: POLYETHYLENE (MIRALAX) 17 GM PACK PO ONE (15:45)
[2017-07-18] MEDS ORDERED: CYANOCOBALAMIN 1000 MCG/ML VIAL IM STA (16:11)
--- NOTE | 2017-07-18 16:29 | Hospitalist Progress Note ---
Hospitalist Progress Note Date of Service Jul 18, 2017. Subjective Pt evaluation today including: conversation w/ patient, conversation w/ family Pt restless with sleep on BiPAP but tolerating well, HCO3 on serum much improved. She is constipated, staring to eat more now. Legs are swelling but hasn't had her compression stockings on. Still with ear fullness, some pain in right ear All Other Systems: Reviewed and Negative Objective Vital Signs Date Time Temp Pulse Resp B/P (MAP) Pulse Ox O2 Delivery O2 Flow Rate FiO2 07/18/17 15:32 Nasal Cannula 3.0 07/18/17 15:05 70 146/74 (98) 94 07/18/17 14:44 73 18 96 Nasal Cannula 3.0 07/18/17 11:43 36.4 70 22 134/76 (95) 98 3.0 07/18/17 08:45 Nasal Cannula 3.0 07/18/17 07:28 36.4 70 22 136/79 (98) 98 3.0 70 07/18/17 07:19 67 18 97 BiPAP/CPAP 30 07/18/17 07:18 67 97 30 07/18/17 05:22 68 93 30 07/18/17 04:30 36.7 68 20 131/71 (91) 93 BiPAP 07/18/17 01:49 70 92 30 07/18/17 01:49 72 18 92 BiPAP/CPAP 30 07/18/17 00:40 36.8 76 18 124/72 (89) 93 BiPAP 07/18/17 00:00 92 BiPAP 07/17/17 22:48 78 92 30 07/17/17 19:39 37.0 87 18 133/65 (87) 93 Oxymask 3.0 07/17/17 19:30 83 16 93 Mask 2.0 07/17/17 16:21 37.5 86 20 144/68 (93) 93 Oxymask 2.0 07/17/17 16:00 90 Oxymask 2.0 40 Physical Exam General Appearance: WD/WN, no apparent distress, + obese (sitting in chair at bedside) Eyes: normal inspection, sclerae normal ENT: normal ENT inspection, TMs normal, + pertinent finding (KETCHIKAN) Neck: supple, trachea midline Respiratory/Chest: lungs clear, normal breath sounds, no respiratory distress, no accessory muscle use Cardiovascular: regular rate, rhythm, no murmur, + pertinent finding (1+ pitting edema legs bilat) Abdomen: normal bowel sounds, non tender, soft Extremities: no calf tenderness Neurologic/Psychiatric: alert, normal mood/affect, oriented x 3 Skin: normal color, warm/dry, no rash Laboratory Results Last 24 Hours Test 07/18/17 08:15 07/18/17 08:16 Sodium Level 134 mmol/L Potassium Level 4.9 mmol/L Chloride Level 92 mmol/L Carbon Dioxide Level 37 mmol/L Anion Gap 5.0 mmol/L Blood Urea Nitrogen 78 mg/dl Creatinine 1.40 mg/dl Est Creatinine Clear Calc Drug Dose 29.5 ml/min Estimated GFR () 39.1 Estimated GFR (Non- 33.7 BUN/Creatinine Ratio 55.9 Random Glucose 138 mg/dl Calcium Level 9.9 mg/dl Magnesium Level 3.0 mg/dl White Blood Count 7.05 K/uL Red Blood Count 3.08 M/uL Hemoglobin 9.1 g/dL Hematocrit 30.4 % Mean Corpuscular Volume 98.7 fL Mean Corpuscular Hemoglobin 29.5 pg Mean Corpuscular Hemoglobin Concent 29.9 g/dl Platelet Count 235 K/uL Mean Platelet Volume 10.2 fL Neutrophils (%) (Auto) 88.4 % Lymphocytes (%) (Auto) 5.7 % Monocytes (%) (Auto) 5.5 % Eosinophils (%) (Auto) 0.0 % Basophils (%) (Auto) 0.0 % Neutrophils # (Auto) 6.23 K/uL Lymphocytes # (Auto) 0.40 K/uL Monocytes # (Auto) 0.39 K/uL Eosinophils # (Auto) 0.00 K/uL Basophils # (Auto) 0.00 K/uL RDW Standard Deviation 51.0 fL RDW Coefficient of Variation 14.3 % Immature Granulocyte % (Auto) 0.4 % Immature Granulocyte # (Auto) 0.03 K/uL Assessment and Plan Pt is an 86 yo female with a h/o HTN, chronic diastolic CHF, asthma, sarcoidosis with pulm involvement, dementia, HL, neuropathy, and macrocytic anemia of B12 deficiency, here with acute hypoxemic and hypercapnic respiratory failure and initially suspected PNA with parapneumonic effusion. Acute hypercarbic and hypoxemic respiratory failure/Acute on chronic diastolic CHF exacerbation/suspected pneumonia with parapneumonic effusion-- Not likely to have PNA, probably more bronchial asthma exacerbation and diastolic CHF with effusions, Had altered mental status on 07/15 and found to have ABG obtained noted PaCO2 89 , started on BiPAP and improved. Likely has OHS or FAUSTO Developed worsening renal fxn with diuresis so diuretics now held. ECHO with diastolic dysfxn, mild AI, EF 65-70%, and old calcified vegetation vs ruptured chordae. Now with worsening LE edema *Last PFT 08/2013 with moderate obstructive disease with significant improvement with bronchodilator, no air trapping, and normal DLCO. *Does have a 35 year history of smoking, quit 30 years ago. Repeat AB.41/56/101 on 3 LNC and mentating clearly--> qualifies her for BiPAP at home but needs Overnight Oximetry tonight on 3L -arrange home BiPAP for nocturnal use if qualifies on overnight study -serial cardiac enzymes negative -continue Levofloxacin for 7 day course-today day #5 -continue Xopenex/Atrovent nebulizer every 6 hours while awake and every 2 hours when necessary. -flutter valve and chest physiotx ordered by Pulm -restart Advair on dc -Consult Pulm placed for hypercarbic respiratory failure -appreciate further recommendations for future management--> question if has COPD given CO2 retention -will need repeat PFTs as outpt -keep O2 lower at 3LNC from 5LNC at home to prevent hypercarbia Ear pain-nocturnal only. 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 Hold lasix and restart when chemical process operator improved-possibly tomorrow Anemia-macrocytic. Hgb 8-9 for the last 4-5 months. Fe studies, B12, Folate all normal in 03/2017, but had MMA elevated, TSH normal. COuld be MDS? Pt's daughter reports today she is followed by Dr. Webber with Heme and was treating her with B12 injections monthly, she is overdue for Sept injection. B12 here is 779 now and still significantly anemic. Fe studies show low normal serum Fe and ferritin, low transferrin sat 14%--> may also have some Fe-deficiency (mild). WIll defer further eval to Heme as outpt -give IM B12 now x 1 -follow CBC -Hemoccult stool -f/u Heme outpt GPN-- Gabapentin 300 mg by mouth 4 times a day. Hyperlipidemia--pravastatin 10 mg by mouth daily. Dementia--donepezil 5 mg by mouth at bedtime. Seasonal allergy--Clarinex 5 mg by mouth daily and Beconase AQ 1 sprays nostril twice a day. Glaucoma--continue Alphagan P. Pain control--continue tramadol and Voltaren gel. DVT Proph-SQ heparin Dispo- to home in 1-2 days after BiPAP arranged
[2017-07-18] MEDS ORDERED: SODIUM CHLORIDE 0.65% NA SOLN 45 ML (OCEAN) PRN (16:30)
[2017-07-18] MEDS: DONEPEZIL HCL 5 MG TAB PO SCH (20:17)
[2017-07-18] MEDS: DICLOFENAC SOD 1% GEL 100 GM TUBE EXT SCH (20:18)
[2017-07-19] VITALS: BP 154/75; PULSE 86; TEMP 36.9; O2SAT 98
[2017-07-19] MEDS: IPRATROPIUM BROMIDE NEB SOLN 0.02% 2.5 ML VIAL INH SCH ×3 (01:27→14:11)
[2017-07-19] MEDS: LEVALBUTEROL 1.25MG/0.5ML NEB INH SCH ×3 (01:28→14:11)
[2017-07-19] MEDS: ACETAMINOPHEN 325 MG TAB PO PRN (04:33)
[2017-07-19 06:54] LABS: ARTERIAL BLD GAS O2 SATURATION 98.5 % (90-95); ARTERIAL BLOOD GAS BASE EXCESS 13.1 mEq/L (-9-1.8); ARTERIAL BLOOD GAS HCO3 41 mmol/L (19-24); ARTERIAL BLOOD GAS PO2 148 mm/Hg (80-95); ARTERIAL BLOOD GAS pH 7.37 (7.35-7.45)
[2017-07-19 06:55] LABS: ALLEN TEST POS (POS); O2 ADMINISTRATION 4L
[2017-07-19 07:01] LABS: COMPLETE YES; EOS % 0.1 %; HEMATOCRIT 30.3 % (37-47); IG% 0.6 %; LYMPH % 10.1 %; LYMPH ABS # 0.87 K/uL (1.2-3.4); MEAN CELL VOLUME 98.1 fL (80-100); MEAN CORPUSCULAR HEMOGLOBIN 30.1 pg (25-34); MEAN CORPUSCULAR HGB CONC 30.7 g/dl (32-36); MEAN PLATELET VOLUME 9.9 fL (7.4-10.4); MONO % 13.1 %; NEUT % 76.1 %; PLATELET COUNT 210 K/uL (130-400); RED BLOOD COUNT 3.09 M/uL (4.2-5.4); WHITE BLOOD COUNT 8.61 K/uL (4.8-10.8)
[2017-07-19 07:12] VITALS: PULSE 65; O2SAT 100
[2017-07-19] MEDS: GUAIFENESIN 600 MG TABCR PO SCH (07:15)
[2017-07-19] MEDS: CEROVITE ADV FORMULA TAB PO SCH (07:15)
[2017-07-19] MEDS: BRIMONIDINE TARTRATE-P 0.15% 5 ML BTL OPL SCH (07:15)
[2017-07-19] MEDS: LORATADINE 10 MG TAB PO SCH (07:15)
[2017-07-19] MEDS: GABAPENTIN 300 MG CAP PO SCH ×2 (07:15→12:05)
[2017-07-19] MEDS: PRAVASTATIN SOD 20 MG TAB PO SCH (07:15)
[2017-07-19] MEDS: FLUTICASONE PROPIONATE NA SPR 16 GM BTL SCH (07:15)
[2017-07-19 07:18] VITALS: BP 149/80; PULSE 65; TEMP 36.5; O2SAT 100
[2017-07-19 07:32] LABS: BUN/CREATININE RATIO 60.7 (10-20); CALCIUM 9.8 mg/dl (8.5-10.1); CREATININE 1.3 mg/dl (0.60-1.20); POTASSIUM 4.5 mmol/L (3.5-5.1)
[2017-07-19] MEDS ORDERED: POLYETHYLENE (MIRALAX) 17 GM PACK PO SCH (08:00)
[2017-07-19] MEDS: HEPARIN SOD 5000 UNIT/0.5 ML CARP SQ SCH (09:19)
[2017-07-19 09:30] VITALS: PULSE 69; O2SAT 92
[2017-07-19] MEDS: LEVOFLOXACIN 250 MG TAB PO SCH (12:05)
[2017-07-19 12:40] VITALS: BP 149/80; PULSE 69; TEMP 36.5; O2SAT 92
[2017-07-19 14:15] VITALS: PULSE 76; O2SAT 98
--- NOTE | 2017-07-19 16:20 | Pulmonology Progress Note ---
Pulmonary Progress Note Date of Service Jul 19, 2017. Attending Dr. Rios Subjective Patient is feeling slightly improved today. She states that she is coughing up some mild white/yellow sputum this afternoon, but otherwise her breathing is better. She was instructed on how to use BiPAP. Overnight oximetry study was completed and viewed/reviewed by me. Reviewed inpatient medications: Prednisone 40 mg daily Levaquin 250 mg daily Xopenex and Atrovent continued Labs reviewed today: WBC 8.61 Hgb 9.3 Creatinine 1.3 Bicarb 40 ABG 07/19 pCO2 73 pO2 148 HCO3 [address] Gabriel Florian Objective VS Reviewed: Temp 36.5 HR 69 RR 20 SaO2 92-100 % Currently on nasal cannula with 3L General: Patient is awake, alert, cooperative, and in no acute distress. Obese Head: Normocephalic, Atraumatic. ENT: PERRLA, No discharge, EOMI, Sclera normal Neck: Normal ROM. Trachea midline. No stridor Respiratory: Mildly decreased breath sounds. No respiratory distress. No accessory muscle use. Cardiovascular: Regular rate and rhythm. Back: Normal inspection. Extremities: Normal ROM Neuro: Alert, Oriented x 3. CN II-XII grossly intact. Sensation and motor function grossly intact. Psych: Mood and affect are normal. Assessment & Plan Acute on chronic hypoxic and hypercapnic respiratory insufficiency Asthma exacerbation Diastolic dysfunction Anemia Patient overall has improved. Overnight oximetry study showed 45 events of oxygen desaturation with 39 events <88%. Her repeat ABG this morning showed elevated pO2 and elevated CO2. She was placed on BiPAP and is anticipated to go home with BiPAP as well. She should continue at home O2 supplementation via nasal cannula during the day as well. Recommend starting at 2L during the day. She may need more with ambulation, but she and her caregiver were instructed to monitor her O2 levels closely by oximeter at home. Avoid hyperoxigenation. Continue Prednisone taper. Continue Levaquin to complete empiric course. Resume home pulmonary medications upon D/C (Advair and albuterol) Recommend that this patient has outpatient sleep study completed with CPAP titration following discharge. She will need pulmonary follow up in 1-2 weeks. Pulm will sign off. Thank you Data Medications: Current Inpatient Medications Medications (Trade) Dose Ordered Sig/Jose Route Start Time Stop Time Status Last Admin Dose Admin Heparin Sodium (Porcine) (Heparin Sq 5000 Unit/0.5ml) 5,000 unit Q12 SQ 07/14/17 09:00 08/13/17 08:59 07/19/17 09:19 5,000 UNIT Acetaminophen (Tylenol Tab) 650 mg Q4H PRN PO 07/14/17 02:15 08/13/17 02:14 07/19/17 04:33 650 MG Nitroglycerin (Nitrostat Tab) 0.4 mg UD PRN SL 07/14/17 02:15 08/13/17 02:14 Brimonidine Tartrate (Alphagan-P 0.15% Oph Soln) 1 drops BID OPL 07/14/17 09:00 08/13/17 08:59 07/19/17 07:15 1 DROPS Diclofenac Sodium (Voltaren 1% Top Gel) 1 appln HS EXT 07/14/17 21:00 08/13/17 20:59 07/18/17 20:18 1 APPLN Donepezil HCl (Aricept Tab) 5 mg HS PO 07/14/17 21:00 08/13/17 20:59 07/18/17 20:17 5 MG Gabapentin (Neurontin Cap) 300 mg QID PO 07/14/17 09:00 08/13/17 08:59 07/19/17 12:05 300 MG Multivitamins/ Minerals (Multivitamin W/ Minerals Tab) 1 tab DAILY PO 07/14/17 09:00 08/13/17 08:59 07/19/17 07:15 1 TAB Pravastatin Sodium (Pravachol Tab) 10 mg DAILY PO 07/14/17 09:00 08/13/17 08:59 07/19/17 07:15 10 MG Tramadol HCl (Ultram Tab) 50 mg Q4H PRN PO 07/14/17 02:15 08/13/17 02:14 07/17/17 21:34 50 MG Ondansetron HCl (Zofran Inj) 4 mg Q6H PRN IV 07/14/17 02:15 08/13/17 02:14 Ipratropium [place] (Atrovent 0.02% 0.5MG/2.5ML Neb) 0.5 mg Q6R INH 07/14/17 09:00 08/13/17 08:59 07/19/17 07:08 0.5 MG Levalbuterol (Xopenex 1.25MG/ 0.5ML Neb) 1.25 mg Q6R INH 07/14/17 09:00 08/13/17 08:59 07/19/17 07:08 1.25 MG Ipratropium [place] (Atrovent 0.02% 0.5MG/2.5ML Neb) 0.5 mg Q2H PRN INH 07/14/17 03:30 08/13/17 03:29 Levalbuterol (Xopenex 1.25MG/ 0.5ML Neb) 1.25 mg Q2H PRN INH 07/14/17 03:30 08/13/17 03:29 Levofloxacin (Consult) 1 ea UD PRN N/A 07/14/17 03:30 08/13/17 03:29 Guaifenesin (Mucinex Contr Rel Tab) 600 mg Q12 PO 07/15/17 21:00 08/14/17 20:59 07/19/17 07:15 600 MG Fluticasone Propionate (Flonase Nasal [place]) 1 sprays BID NA 07/17/17 20:00 08/16/17 20:59 07/19/17 07:15 1 SPRAYS Loratadine (Claritin Tab) 10 mg DAILY PO 07/18/17 08:00 08/17/17 08:59 07/19/17 07:15 10 MG Levofloxacin (Levaquin Tab) 250 mg DAILY@11 PO 07/18/17 11:00 07/21/17 10:59 07/19/17 12:05 250 MG Miconazole Nitrate (Desenex Powder) 1 appln PRN PRN EXT 07/17/17 16:45 08/16/17 16:44 Polyethylene (Miralax Powder Packet) 17 gm DAILY PO 07/19/17 08:00 08/18/17 07:59 07/19/17 07:18 17 GM Bisacodyl (Dulcolax Supp) 10 mg DAILY PRN [place] 07/18/17 15:45 08/17/17 15:44 07/19/17 07:21 10 MG Sodium Chloride ([place] Nasal [place]) 2 sprays Q2H PRN NA 07/18/17 16:30 08/17/17 16:29 07/19/17 07:18 2 SPRAYS Prednisone (PredniSONE TAB) 40 mg DAILY PO 07/19/17 08:00 08/18/17 07:59 07/19/17 07:15 40 MG Vital Signs: Date Time Temp Pulse Resp B/P (MAP) Pulse Ox O2 Delivery O2 Flow Rate FiO2 07/19/17 12:40 36.5 69 20 92 Nasal Cannula 07/19/17 11:19 Nasal Cannula 3.0 07/19/17 09:30 69 92 30 07/19/17 07:18 36.5 65 20 149/80 (103) 100 Mask 6.0 07/19/17 07:12 65 18 100 Mask 6.0 07/19/17 06:00 Nasal Cannula 3.0 07/19/17 00:00 36.9 86 22 154/75 (101) 98 Nasal Cannula 2.0 07/19/17 00:00 Nasal Cannula 3.0 07/18/17 20:00 Nasal Cannula 3.0 07/18/17 19:31 80 18 96 Nasal Cannula 3.0 07/18/17 15:32 Nasal Cannula 3.0 07/18/17 15:05 70 146/74 (98) 94 07/18/17 14:44 73 18 96 Nasal Cannula 3.0 Laboratory Results: Last 24 Hours Test 07/19/17 06:25 07/19/17 09:15 White Blood Count 8.61 K/uL Red Blood Count 3.09 M/uL Hemoglobin 9.3 g/dL Hematocrit 30.3 % Mean Corpuscular Volume 98.1 fL Mean Corpuscular Hemoglobin 30.1 pg Mean Corpuscular Hemoglobin Concent 30.7 g/dl Platelet Count 210 K/uL Mean Platelet Volume 9.9 fL Neutrophils (%) (Auto) 76.1 % Lymphocytes (%) (Auto) 10.1 % Monocytes (%) (Auto) 13.1 % Eosinophils (%) (Auto) 0.1 % Basophils (%) (Auto) 0.0 % Neutrophils # (Auto) 6.55 K/uL Lymphocytes # (Auto) 0.87 K/uL Monocytes # (Auto) 1.13 K/uL Eosinophils # (Auto) 0.01 K/uL Basophils # (Auto) 0.00 K/uL RDW Standard Deviation 50.9 fL RDW Coefficient of Variation 14.3 % Immature Granulocyte % (Auto) 0.6 % Immature Granulocyte # (Auto) 0.05 K/uL Arterial Blood pH 7.37 Arterial Blood Partial Pressure CO2 73 mmHg Arterial Blood Partial Pressure O2 148 mm/Hg Arterial Blood HCO3 41 mmol/L Arterial Blood Oxygen Saturation 98.5 % Arterial Blood Base Excess 13.1 mEq/L Arterial Blood Gas Delivery 4L [place] Test POS Sodium Level 136 mmol/L Potassium Level 4.5 mmol/L Chloride Level 94 mmol/L Carbon Dioxide Level 40 mmol/L Anion Gap 2.0 mmol/L Blood Urea Nitrogen 79 mg/dl Creatinine 1.30 mg/dl Est Creatinine Clear Calc Drug Dose 31.7 ml/min Estimated GFR () 42.7 Estimated GFR (Non- 36.9 BUN/Creatinine Ratio 60.7 Random Glucose 108 mg/dl Calcium Level 9.8 mg/dl Magnesium Level 3.0 mg/dl Stool Occult Blood NEGATIVE
[2017-07-19] MEDS ORDERED: VNCAQN NAE (16:22)
[2017-07-19] MEDS ORDERED: LVQ250 PO (16:22)
[2017-07-19] MEDS ORDERED: PRD20 PO (16:22)
--- NOTE | 2017-07-19 16:35 | Discharge Instructions ---
Discharge Instructions Date of Service Jul 19, 2017. Admission Reason for Admission: Acute respiratory failure Discharge Discharge Diagnosis / Problem: Acute hypoxemic and hypercarbic respiratory failure Discharge Goals Goal(s): Improve disease control, Diagnostic testing, Therapeutic intervention Activity Recommendations Activity Limitations: resume your previous activity . Instructions / Follow-Up Instructions / Follow-Up You were admitted with respiratory failure and suspected pneumonia. You were found to have very high levels of carbon dioxide in your blood and this is due to likely Obesity Hypoventilation Syndrome. You must wear your BiPAP every night to prevent carbon dioxide from building up. Please also finish out one more day of your antibiotic, Levaquin, as well as your prednisone for wheezing. You should follow up with Dr. Bennett within 1 week for follow up on your asthma and BiPAP use. You can take all of your other usual home medications, EXCEPT do not take your lasix. You should have your kidney function tested again in 1 week through your PCP to see if it is safe to once again restart your lasix. Current Hospital Diet Patient's current hospital diet: AHA Diet (Heart Healthy) Discharge Diet Recommended Diet: AHA Diet (Heart Healthy) Procedures Procedures Performed: Chest xray Pending Studies Studies pending at discharge: no Laboratory Results Last 24 Hours Test 07/19/17 06:25 07/19/17 09:15 White Blood Count 8.61 K/uL Red Blood Count 3.09 M/uL Hemoglobin 9.3 g/dL Hematocrit 30.3 % Mean Corpuscular Volume 98.1 fL Mean Corpuscular Hemoglobin 30.1 pg Mean Corpuscular Hemoglobin Concent 30.7 g/dl Platelet Count 210 K/uL Mean Platelet Volume 9.9 fL Neutrophils (%) (Auto) 76.1 % Lymphocytes (%) (Auto) 10.1 % Monocytes (%) (Auto) 13.1 % Eosinophils (%) (Auto) 0.1 % Basophils (%) (Auto) 0.0 % Neutrophils # (Auto) 6.55 K/uL Lymphocytes # (Auto) 0.87 K/uL Monocytes # (Auto) 1.13 K/uL Eosinophils # (Auto) 0.01 K/uL Basophils # (Auto) 0.00 K/uL RDW Standard Deviation 50.9 fL RDW Coefficient of Variation 14.3 % Immature Granulocyte % (Auto) 0.6 % Immature Granulocyte # (Auto) 0.05 K/uL Arterial Blood pH 7.37 Arterial Blood Partial Pressure CO2 73 mmHg Arterial Blood Partial Pressure O2 148 mm/Hg Arterial Blood HCO3 41 mmol/L Arterial Blood Oxygen Saturation 98.5 % Arterial Blood Base Excess 13.1 mEq/L Arterial Blood Gas Delivery 4L [place] Test POS Sodium Level 136 mmol/L Potassium Level 4.5 mmol/L Chloride Level 94 mmol/L Carbon Dioxide Level 40 mmol/L Anion Gap 2.0 mmol/L Blood Urea Nitrogen 79 mg/dl Creatinine 1.30 mg/dl Est Creatinine Clear Calc Drug Dose 31.7 ml/min Estimated GFR () 42.7 Estimated GFR (Non- 36.9 BUN/Creatinine Ratio 60.7 Random Glucose 108 mg/dl Calcium Level 9.8 mg/dl Magnesium Level 3.0 mg/dl Stool Occult Blood NEGATIVE Medical Emergencies . Who to Call and When: Medical Emergencies: If at any time you feel your situation is an emergency, please call 911 immediately. . Non-Emergent Contact Non-Emergency issues call your: Primary Care Provider Call Non-Emergent contact if: you have a fever, you have any medication questions . . "Provider Documentation" section prepared by Sravanthi Florian. . VTE Core Measure Inpt VTE Proph given/why not?: Unfractionated heparin SQ, SCD's
--- NOTE | 2017-07-20 01:08 | Discharge Summary ---
Discharge Summary Date of Service Jul 19, 2017. Discharge Summary Admission Date: Jul 14, 2017 at 02:02 Discharge Date: Jul 19, 2017 Discharge Disposition: Home with services Principal Diagnosis: Acute hypoxemic and hypercapnic respiratory failure Problems/Secondary Diagnoses: Obesity Hypoventilation Syndrome FAUSTO HTN Chronic diastolic CHF Asthma Sarcoidosis Dementia Macrocytic anemia possibly of B12 deficiency Pleural effusion Mild AI Old calcified vegetation vs ruptured chordae on ECHO Chronic respiratory failure Ear pain FERMÍN Metabolic alkalosis Peripheral neuropathy Hyperlipidemia Seasonal allergy Glaucoma Osteoarthritis Immunizations: Have You Had Influenza Vaccine: Yes History of Tetanus Vaccine?: Yes History of Pneumococcal: Yes History of Hepatitis B Vaccine: Unknown Procedures: Chest xrays ECHO Overnight Oximetry Consultations: Pulmonology Medication Reconciliation New Medications: Levofloxacin (Levofloxacin) 250 Mg Tab 250 MG PO DAILY@11 for 1 Day, #1 TAB Prednisone (Prednisone) 20 Mg Tab 20 MG PO DAILY, #3 TAB x 2 days then take 10mg daily x 2 days then stop Continued Medications: Acetaminophen (Tylenol) 500 Mg Tab 1000 MG PO Q8 PRN for Pain Albuterol Hfa (Ventolin Hfa) 200 Puffs/37731 Mcg Aers 1 PUFFS INH AMHS Beclomethasone Dip (Beconase Aq) 200 Sprays/24251 Mg Aers 1 SPRAY EDI BID for 30 Days, #1 EA (This prescription has been renewed) Brimonidine Tartrate (Alphagan P) 75 Drops/5 Ml Soln 1 DROPS OPL BID, #15 ML 3 Refills Desloratadine (Clarinex) 5 Mg Tab 5 MG PO DAILY, TAB Diclofenac Sodium (Topical) (Voltaren 1% Top Gel) 1 % Gel 1 APPLN TOP HS APPLY TO KNEES AND SHOULDERS Donepezil Hydrochloride (Donepezil Hcl) 5 Mg Tab 5 MG PO HS, 3 Refills Fluticasone-Salmeterol 230/21 Mcg (Advair Hfa 230/21 Mcg) 1 Aer Aer 2 PUFFS INH BID, #36 Gabapentin (Neurontin) 300 Mg Cap 300 MG PO QID, CAP Hctz/Spironolactone 25MG/25MG (Aldactazide 25MG/25MG) 1 Tab Tab 1 TAB PO DAILY, TAB Losartan Potassium (Cozaar) 50 Mg Tab 50 MG PO DAILY, TAB Multivitamins/Minerals (Mvi With Minerals) Tab 1 TAB PO DAILY, TAB Pravastatin Sodium (Pravachol) 20 Mg Tab 10 MG PO DAILY, TAB Tramadol Hcl (Ultram) 50 Mg Tab 50 MG PO BID PRN, TAB PRN PAIN Discontinued Medications: Azithromycin (Zithromax) 250 Mg Tab 250 MG PO DAILY, #4 TAB Azithromycin (Zithromax Z-Aidan) 250 Mg Tab 1 PKT PO UD PRN for RESCUE KIT for 5 Days, #6 TAB Furosemide (Lasix) 40 Mg Tab 40 MG PO Q2D, TAB Discharge Exam Pt feeling very well, no complaints. BiPAP delivered to the room prior to discharge Physical Exam General Appearance: WD/WN, no apparent distress, + obese (sitting in chair at bedside) Eyes: normal inspection, sclerae normal ENT: normal ENT inspection, TMs normal, + pertinent finding ([place]) Neck: supple, trachea midline Respiratory/Chest: lungs clear, normal breath sounds, no respiratory distress, no accessory muscle use Cardiovascular: regular rate, rhythm, no murmur, + pertinent finding (1+ pitting edema legs bilat) Abdomen: normal bowel sounds, non tender, soft Extremities: no calf tenderness Neurologic/Psychiatric: alert, normal mood/affect, oriented x 3 Skin: normal color, warm/dry, no rash Review of Systems: Constitutional: No fever, No chills Eyes: No problem reported ENT: + problem reported (right ear pain at nighttime) Respiratory: No shortness of breath Cardiovascular: No chest pain Abdomen: No pain, No nausea, No vomiting Musculoskeletal: + joint pain (knees) Genitourinary - Female: No problem reported Neurologic: No problem reported Psychiatric: No problem reported Endocrine: No problem reported Hematologic / Lymphatic: No problem reported Integumentary: No problem reported Hospital Course Pt is an 86 yo female with a h/o HTN, chronic diastolic CHF, asthma, sarcoidosis with pulm involvement, dementia, HL, neuropathy, and macrocytic anemia of B12 deficiency, here with acute hypoxemic and hypercapnic respiratory failure and initially suspected PNA with parapneumonic effusion. Acute hypercarbic and hypoxemic respiratory failure/Acute on chronic diastolic CHF exacerbation/suspected pneumonia with parapneumonic effusion-- Not likely to have PNA, probably more bronchial asthma exacerbation and diastolic CHF with effusions, Had altered mental status on 07/15 and found to have ABG obtained noted PaCO2 89 , started on BiPAP and improved. Likely has OHS or FAUSTO Developed worsening renal fxn with diuresis so diuretics now held. ECHO with diastolic dysfxn, mild AI, EF 65-70%, and old calcified vegetation vs ruptured chordae. *Last PFT 08/2013 with moderate obstructive disease with significant improvement with bronchodilator, no air trapping, and normal DLCO. *Does have a 35 year history of smoking, quit 30 years ago. Repeat AB.41/56/101 on 3 LNC and mentating clearly after using nocturnal BiPAP--> Overnight Oximetry on 3LNC was grossly abnormal All findings consistent with OHS and FAUSTO -arranged home BiPAP for nocturnal use -f/u with Pulm/Dr. Bennett -continue Levofloxacin for 7 day course-today day #6 -restart Advair, Ventolin prn on dc -will need repeat PFTs as outpt as has been 4 years since her last and now significantly retaining CO2 -keep O2 lower at 3LNC from 5LNC at home to prevent hypercarbia Ear pain-nocturnal only. TMs and EACs normal on exam -nasal saline for eustachian tube dysfunction FERMÍN, metabolic alkalosis secondary to contraction plus chronic CO2 retention- improving, anesthesiologist down to 1.3, HCO3 much improved with BiPAP use, now only 37-40 ( was 51 on admission) -can restart losartan and HCTZ/aldactone, but continue to hold lasix -repeat BMP in 1 week, restart lasix every other day if anesthesiologist ok -renally dose meds, avoid nephrotoxins Hypertension/CHF-- diuretics held as above during admission but now restarting on discharge Anemia-macrocytic. Hgb 8-9 for the last 4-5 months. Fe studies, B12, Folate all normal in 03/2017, but had MMA elevated, TSH normal. COuld be MDS? Pt's daughter reports today she is followed by Dr. Webber with Heme and was treating her with B12 injections monthly, she is overdue for Sept injection. B12 here is 779 now and still significantly anemic. Fe studies show low normal serum Fe and ferritin, low transferrin sat 14%--> may also have some Fe-deficiency (mild). WIll defer further eval to Heme as outpt -gave IM B12 x 1 here but needs further evaluation at her scheduled Heme appointment next week -follow CBC -Hemoccult stool as outpt Peripheral neuropathy Gabapentin 300 mg by mouth 4 times a day. Hyperlipidemia--pravastatin 10 mg by mouth daily. Dementia--donepezil 5 mg by mouth at bedtime. Seasonal allergy--Clarinex 5 mg by mouth daily and Beconase AQ 1 sprays nostril twice a day. Glaucoma--continue Alphagan P. Pain control--continue tramadol prn Discharged to home in good condition Total Time Spent: Greater than 30 minutes This includes examination of the patient, discharge planning, medication reconciliation, and communication with other providers. Discharge Instructions Please refer to the electronic Patient Visit Report (Discharge Instructions) for additional information. Follow-Up PCP/Pulm in 1 week Repeat BMP in 1 week Additional Copies To Gonzalez Bennett M.D.
== END 2017-07-19 17:50 | disposition home health service (06) | DRG 291 ==
LOC: EDBD 23:16 → C.EDC 23:17 → C.2T 07-14 02:02 → ENRESERV 07-14 02:09 → C.4E 07-17 15:28
PROVIDERS: ADMIT Hospitalist; ATTEND Family Medicine
DX: I50.32 Chronic diastolic (congestive) heart failure (principal); J96.02 Acute respiratory failure with hypercapnia; J96.01 Acute respiratory failure with hypoxia; J18.9 Pneumonia, unspecified organism; E66.2 Morbid (severe) obesity with alveolar hypoventilation; J90 Pleural effusion, not elsewhere classified; N17.9 Acute kidney failure, unspecified; E87.3 Alkalosis; Z99.81 Dependence on supplemental oxygen; J45.909 Unspecified asthma, uncomplicated; I11.0 Hypertensive heart disease with heart failure; D86.9 Sarcoidosis, unspecified; F03.90 Unspecified dementia, unspecified severity, without behavioral disturbance, psychotic disturbance, mood disturbance, and anxiety; D53.9 Nutritional anemia, unspecified; E53.8 Deficiency of other specified B group vitamins; Z87.891 Personal history of nicotine dependence; G52.1 Disorders of glossopharyngeal nerve; E78.5 Hyperlipidemia, unspecified; J30.2 Other seasonal allergic rhinitis; H40.9 Unspecified glaucoma; G62.9 Polyneuropathy, unspecified

== ENCOUNTER → 2017-07-25 | Outpatient (CLI) | payer OTHER, BC ==
[~2017-07-25] MED LIST changes: +ALPPOPS5 OPL; +DONE1TAB11 PO; -FRS/40 PO; +LVQ250 PO; -OXYC-57 PO; +PRD20 PO
--- NOTE | 2017-07-25 17:27 | DIAGNOSTIC IMAGING REPORT ---
CT OF THE HEAD WITHOUT CONTRAST CLINICAL HISTORY: Weakness. Confusion. COMPARISON STUDY: Head CT February 20, 2017. CT DOSE: 537.48 mGy.cm TECHNIQUE: Helical axial images of the head were obtained without IV contrast. Automated exposure control was utilized for the study. A dose lowering technique was utilized adhering to the principles of ALARA. FINDINGS: No acute intracranial hemorrhage, midline shift or mass effect is present. Ventricular system is stable. The basilar cisterns are patent. There are no extra-axial collections. Murphy-white differentiation is maintained. There are no CT findings to suggest acute dural sinus thrombosis or acute territorial infarct. There are no significant calvarial abnormalities. There is trace fluid within the right mastoid air cells. IMPRESSION: No acute intracranial findings. Electronically signed by: Julio Escobar M.D. 07/25/2017 5:26 PM Dictated Date/Time: 07/25/2017 5:23 PM
== END | disposition home or self-care (01) ==
LOC: C.CTS 17:03
PROVIDERS: ATTEND Physical Medicine & Rehabilitation
DX: R53.1 Weakness (principal); R41.0 Disorientation, unspecified

== ENCOUNTER 2017-09-17 14:57 | Inpatient (IN) | payer OTHER, BC ==
[~2017-09-17] VITALS: Ht 152.4 cm; Wt 96.2 kg
[2017-09-17] VITALS (7 sets, daily range): BP systolic 122–131; BP diastolic 63–75; PULSE 65–97; TEMP 36.5–36.8; O2SAT 92–99; Ht 152.4 cm; Wt 96.2 kg
[~2017-09-17 14:57] MED LIST changes: +AZIT250T PO; -CLR/5 PO; -LVQ250 PO; +OXGN; +PRAV10TA39 PO; -PRAV20TA PO; -PRD20 PO
--- NOTE | 2017-09-17 15:26 | EMERGENCY ROOM VISIT NOTE ---
History Report prepared by Raúl: Lucy Castelan Under the Supervision of: Dr. Michelet Juarez D.O. First contact with patient: 15:12 Chief Complaint: SHORTNESS OF BREATH Stated Complaint: SOB, SENT FROM DR MATTSON History of Present Illness The patient is an 87 year old female who presents to the Emergency Room with complaints of worsening shortness of breath for the past few days. She was seeing her Junior Recruiter, Dr. Bennett, earlier this afternoon and was referred here to the ED for her symptoms. She is accompanied by her daughter. Her daughter reports she has a history of COPD and became very short of breath at Dr. Bennett's office, and her lungs sounded "junky" on exam. She states the patient has not been feeling well for the past few days. She wears 3L of Oxygen via a compressor at home, but it has provided minimal relief. Both of her legs have also been increasingly swollen recently. Her daughter denies any recent weight gain and states the patient is weighed every morning. The last time the patient stayed in the hospital for her symptoms was in mid July. Source of History: patient, family (daughter) Onset: past few days STEEL LAYER Position: chest Timing: worsening Modifying Factors (Relieving): oxygen Review of Systems See HPI for pertinent positives & negatives. A total of 10 systems reviewed and were otherwise negative. Past Medical & Surgical Medical Problems: (1) Congestive heart failure (2) COPD (chronic obstructive pulmonary disease) (3) Dementia Social History Smoking Status: Former Smoker Drug Use: none Marital Status: Housing Status: lives with family Occupation Status: retired Current/Historical Medications Scheduled Albuterol Hfa (Ventolin Hfa), 1 PUFFS INH AMHS Beclomethasone Dip (Beconase Aq), 1 SPRAY EDI BID Brimonidine Tartrate (Alphagan P), 1 DROPS OPL BID Diclofenac Sodium (Topical) (Voltaren 1% Top Gel), 1 APPLN TOP HS Donepezil Hydrochloride (Donepezil Hcl), 5 MG PO HS Fluticasone-Salmeterol 230/21 Mcg (Advair Hfa 230/21 Mcg), 2 PUFFS INH BID Gabapentin (Neurontin), 300 MG PO QID Hctz/Spironolactone 25MG/25MG (Aldactazide 25MG/25MG), 1 TAB PO DAILY Home O2 Therapy (Oxygen), 3 LITERS NA UD Loratadine (Claritin), 10 MG PO DAILY Losartan Potassium (Cozaar), 50 MG PO DAILY Multivitamins/Minerals (Mvi With Minerals), 1 TAB PO DAILY Pravastatin Sodium (Pravastatin Sodium), 10 MG PO HS Tramadol Hcl (Ultram), 50 MG PO BID PRN Scheduled PRN Acetaminophen (Tylenol), 1,000 MG PO Q8 PRN for Pain Allergies Coded Allergies: Doxycycline (Verified Allergy, Mild, ., 09/03/17) BEE STING (Unverified Allergy, Unknown, , 09/03/17) Iodinated Diagnostic Agents (Verified Allergy, Unknown, `, 09/03/17) Penicillins (Verified Allergy, Unknown, 09/03/17) Physical Exam Vital Signs Date Time Temp Pulse Resp B/P (MAP) Pulse Ox O2 Delivery O2 Flow Rate FiO2 09/17/17 19:00 89 20 136/67 100 BiPAP 09/17/17 18:09 92 22 136/53 99 BiPAP 40 09/17/17 17:18 88 22 116/52 100 BiPAP 09/17/17 16:04 90 32 96 BiPAP/CPAP 40 09/17/17 16:03 90 96 40 09/17/17 16:01 BiPAP 09/17/17 15:59 84 22 118/53 97 BiPAP 09/17/17 15:05 37.3 109 26 167/77 65 Physical Exam GENERAL: Patient is very anxious appearing and appears to be in significant distress EYES: The conjunctivae are clear. The pupils are round and reactive. EARS, NOSE, MOUTH AND THROAT: The nose is without any evidence of any deformity. Mucous membranes are moist tongue is midline NECK: The neck is nontender and supple. RESPIRATORY: Lung sounds are diminished throughout, no significant tachypnea and conversational dyspnea appreciated CARDIOVASCULAR: Heart sounds are tachycardic but regular, no definite murmur noted GASTROINTESTINAL: The abdomen is soft. Bowel sounds are present in all quadrants. Abdomen is nontender MUSCULOSKELETAL/EXTREMITIES: There is no evidence of gross deformity full range of motion is noted in the hips and shoulders SKIN: Pedal edema bilaterally. There is no obvious evidence of any rash. There are no petechiae, pallor or cyanosis noted. NEUROLOGIC: Patient is anxious, appears to be oriented to person and place, not time or situation, strength was symmetric Medical Decision & Procedures ER Provider Diagnostic Interpretation: Radiology results as stated below per my review and radiologist interpretation: CHEST ONE VIEW PORTABLE HISTORY: 87 years-old Female Sepsis acute sepsis with lower extremity swelling COMPARISON: Chest radiograph 09/03/2017 TECHNIQUE: Portable upright AP view of the chest FINDINGS: Cardiomegaly with pulmonary vascular congestion redemonstrated. There is atherosclerosis of the aorta. Calcified hilar lymph nodes redemonstrated. Soft tissue calcifications project over the lung apices as well. Right paratracheal density is again seen suggesting thyroid goiter. Mixed interstitial and alveolar opacities are present bilaterally, right greater than left with bibasilar consolidative densities. Bones are grossly intact. Chronic deformities with remodeling changes of the bilateral humeral joints. IMPRESSION: 1. Cardiomegaly with bilateral mixed interstitial and alveolar opacities suggesting pulmonary edema. 2. Small bilateral pleural effusions with bibasilar consolidative opacities suggesting atelectasis or pneumonia. 3. Evidence of prior granulomatous disease. The above report was generated using voice recognition software. It may contain grammatical, syntax or spelling errors. Electronically signed by: Justin Mckenzie M.D. 09/17/2017 4:18 PM Laboratory Results 09/17/17 15:43 Red Blood Count 3.43, Mean Corpuscular Volume 103.5, Mean Corpuscular Hemoglobin 30.0, Mean Corpuscular Hemoglobin Concent 29.0, Mean Platelet Volume 10.1, Neutrophils (%) (Auto) 89.5, Lymphocytes (%) (Auto) 3.9, Monocytes (%) ( Auto) 5.6, Eosinophils (%) (Auto) 0.4, Basophils (%) (Auto) 0.4, Neutrophils # ( Auto) 10.15, Lymphocytes # (Auto) 0.44, Monocytes # (Auto) 0.63, Eosinophils # ( Auto) 0.05, Basophils # (Auto) 0.05 09/17/17 15:43 Test 09/17/17 15:43 09/17/17 15:45 09/17/17 16:31 09/17/17 19:00 White Blood Count 11.34 K/uL (4.8-10.8) Red Blood Count 3.43 M/uL (4.2-5.4) Hemoglobin 10.3 g/dL (12.0-16.0) Hematocrit 35.5 % (37-47) Mean Corpuscular Volume 103.5 fL (80-100) Mean Corpuscular Hemoglobin 30.0 pg (25-34) Mean Corpuscular Hemoglobin Concent 29.0 g/dl (32-36) Platelet Count 229 K/uL (130-400) Mean Platelet Volume 10.1 fL (7.4-10.4) Neutrophils (%) (Auto) 89.5 % Lymphocytes (%) (Auto) 3.9 % Monocytes (%) (Auto) 5.6 % Eosinophils (%) (Auto) 0.4 % Basophils (%) (Auto) 0.4 % Neutrophils # (Auto) 10.15 K/uL (1.4-6.5) Lymphocytes # (Auto) 0.44 K/uL (1.2-3.4) Monocytes # (Auto) 0.63 K/uL (0.11-0.59) Eosinophils # (Auto) 0.05 K/uL (0-0.5) Basophils # (Auto) 0.05 K/uL (0-0.2) RDW Standard Deviation 51.5 fL (36.4-46.3) RDW Coefficient of Variation 13.7 % (11.5-14.5) Immature Granulocyte % (Auto) 0.2 % Immature Granulocyte # (Auto) 0.02 K/uL (0.00-0.02) Erythrocyte Sedimentation Rate 54 mm/hr (0-21) Anion Gap 1.0 mmol/L (3-11) Est Creatinine Clear Calc Drug Dose 35.6 ml/min Estimated GFR () 49.7 Estimated GFR (Non- 42.9 BUN/Creatinine Ratio 38.5 (10-20) Bedside Lactic Acid Venous 0.99 mmol/L (0.90-1.70) Calcium Level 10.3 mg/dl (8.5-10.1) Phosphorus Level 2.2 mg/dl (2.5-4.9) Magnesium Level 2.5 mg/dl (1.8-2.4) Total Bilirubin 0.2 mg/dl (0.2-1) Aspartate Amino Transf (AST/SGOT) 19 U/L (15-37) Alanine Aminotransferase (ALT/SGPT) 18 U/L (12-78) Alkaline Phosphatase 92 U/L (45-117) Total Creatine Kinase 42 U/L (26-192) Creatine Kinase MB 1.2 ng/ml (0.5-3.6) Creatine Kinase MB Ratio 2.9 (0-3.0) C-Reactive Protein < 0.29 mg/dl (0-0.29) Pro-B-Type Natriuretic Peptide 646 pg/ml (0-1800) Total Protein 7.0 gm/dl (6.4-8.2) Albumin 3.2 gm/dl (3.4-5.0) Globulin 3.8 gm/dl (2.5-4.0) Albumin/Globulin Ratio 0.8 (0.9-2) Lipase 126 U/L (73-393) Chemistry Specimen Hemolysis Urine Color YELLOW Urine Appearance CLEAR (CLEAR) Urine pH 6.0 (4.5-7.5) Urine Specific [place] 1.021 (1.000-1.030) Urine Protein 1+ (NEG) Urine Glucose (UA) NEG (NEG) Urine Ketones NEG (NEG) Urine Occult Blood TRACE (NEG) Urine Nitrite NEG (NEG) Urine Bilirubin NEG (NEG) Urine Urobilinogen NEG (NEG) Urine Leukocyte Esterase NEG (NEG) Urine WBC (Auto) 1-5 /hpf (0-5) Urine RBC (Auto) 0-4 /hpf (0-4) Urine Hyaline Casts (Auto) 1-5 /lpf (0-5) Urine Epithelial Cells (Auto) 5-10 /lpf (0-5) Urine Bacteria (Auto) NEG (NEG) Prothrombin Time 10.4 SECONDS (9.0-12.0) Prothromb Time International Ratio 1.0 (0.9-1.1) Activated Partial Thromboplast Time 23.0 SECONDS (21.0-31.0) Partial Thromboplastin Ratio 0.9 Test 09/17/17 19:26 09/17/17 19:28 Laboratory results per my review. Medications Administered Medications (Trade) Dose Ordered Sig/Jose Route Start Time Stop Time Status Last Admin Dose Admin Albuterol/ Ipratropium (Duoneb) 12 ml ONE ONCE INH 09/17/17 15:30 09/17/17 15:31 DC 09/17/17 15:30 12 ML Levofloxacin (Levaquin / D5W) 750 mg NOW STAT IV 09/17/17 16:33 09/17/17 16:34 DC 09/17/17 17:15 750 MG ECG Indication: SOB/dyspnea Rate (beats per minute): 91 Rhythm: normal sinus Findings: no ectopy, other (No acute ST segment abnormalities ) Change: no significant change (No change from 09/03/17) ED Course 1517: The patient was evaluated in room B4. A complete history and physical examination were performed. 1530: DuoNeb 12 ml INH. 1555: I reevaluated the patient. She is looking much more comfortable and has better color. 1625: I reevaluated the patient. She is resting comfortably. I discussed my recommendation she remain in the hospital for further evaluation and management and she and her family verbalized complete understanding and agreement. 1633: Levaquin 750 mg IV. 1637: I discussed the patients case with Dr. Mccabe [facility] Hospitalist. The patient will be further evaluated. Medical Decision Prior records/ancillary studies reviewed. Triage Nursing notes reviewed. Additional history obtained from the family. The patient's history was concerning for respiratory difficulties. Differential diagnosis: Etiologies such as infections, reactive airway disease, pneumonia, pneumothorax , COPD, CHF, cardiac ischemia, pulmonary embolism, musculoskeletal, gastrointestinal, as well as others were entertained. The patient is an 79-year-old female who presented to the emergency department with her daughter. The patient was sent directly from her primary care physician 's office for severe shortness of breath. The patient was hypoxic and was very altered with her mental status. She was found have significant CO2 retention. The patient placed on BiPAP and her condition significantly improved. She was treated with bronchodilator therapy as well as IV antibiotics. I discussed the patient's laboratory and radiographic studies with her and her daughter. I also discussed her case with the on-call [facility] hospitalist. They've agreed to evaluate the patient in the emergency department for further management and disposition. The patient was reevaluated multiple times. Medication Reconcilliation Current Medication List: was personally reviewed by me Blood Pressure Screening Patient's blood pressure: Low blood pressure Consults Time Called: 1636 Consulting Physician: Dr. Leahy [facility] Hospitalist Returned Call: 1632 I discussed the patients case with Dr. Mccabe [facility] Hospitalist. The patient will be further evaluated. Impression Primary Impression: Pulmonary edema Additional Impressions: Pneumonia Hypoxia Respiratory acidosis Chronic obstructive pulmonary disease Critical Care I have personally spent greater than 35 minutes of critical care time in the direct management of this patient. This includes bedside care, interpretation of diagnostic studies, and testing, discussion with consultants, patient, and family members, and other required patient management activities. This 35 minutes is in excess of all separately billable procedures. Scribe Attestation The scribe's documentation has been prepared under my direction and personally reviewed by me in its entirety. I confirm that the note above accurately reflects all work, treatment, procedures, and medical decision making performed by me. Departure Information Dispostion Being Evaluated By Hospitalist Gonzalez Lacy M.D. (PCP) Patient Instructions My [facility] Problem Qualifiers Primary Impression: Pulmonary edema Chronicity: acute Qualified Codes: J81.0 - Acute pulmonary edema Additional Impressions: Pneumonia Pneumonia type: due to unspecified organism Laterality: unspecified laterality Lung location: unspecified part of lung Qualified Codes: J18.9 - Pneumonia, unspecified organism Chronic obstructive pulmonary disease COPD type: unspecified COPD Qualified Codes: J44.9 - Chronic obstructive pulmonary disease, unspecified
[2017-09-17] MEDS ORDERED: ALBUT/IPRATROP 3MG/0.5MG NEB 3 ML VIAL INH ONE (15:30)
[2017-09-17 15:57] LABS: VEN BLD GAS O2 SATURATION 85.3 %; VEN BLOOD GAS BASE EXCESS 14.5 mEq/L
[2017-09-17 16:04] LABS: URINE APPEARANCE CLEAR (CLEAR); URINE BILIRUBIN NEG (NEG); URINE COLOR YELLOW; URINE NITRITE NEG (NEG); URINE SPECIFIC GRAVITY 1.021 (1.000-1.030); UROBILINOGEN NEG (NEG); ZZURINE CULT IF INDIC CATH NO
[2017-09-17 16:08] LABS: MANUAL MICROSCOPIC REQUIRED? NO; REVIEW REQ? NO
[2017-09-17 16:12] LABS: BASO % 0.4 %; BASO ABS # 0.05 K/uL (0-0.2); COMPLETE YES; EOS % 0.4 %; HEMATOCRIT 35.5 % (37-47); IG% 0.2 %; LYMPH % 3.9 %; LYMPH ABS # 0.44 K/uL (1.2-3.4); MEAN CELL VOLUME 103.5 fL (80-100); MEAN PLATELET VOLUME 10.1 fL (7.4-10.4); MONO % 5.6 %; NEUT % 89.5 %; PLATELET COUNT 229 K/uL (130-400); RED BLOOD COUNT 3.43 M/uL (4.2-5.4); WHITE BLOOD COUNT 11.34 K/uL (4.8-10.8)
[2017-09-17 16:18] LABS: ALB/GLOB RATIO 0.8 (0.9-2); ALKALINE PHOSPHATASE 92 U/L (45-117); ALT/SGPT 18 U/L (12-78); AST/SGOT 19 U/L (15-37); BLOOD UREA NITROGEN 44 mg/dl (7-18); BUN/CREATININE RATIO 38.5 (10-20); C-REACTIVE PROTEIN < 0.29 mg/dl (0-0.29); CALCIUM 10.3 mg/dl (8.5-10.1); CARBON DIOXIDE 43 mmol/L (21-32); CHLORIDE 96 mmol/L (98-107); CKMB/CK RATIO 2.9 (0-3.0); CREATININE 1.14 mg/dl (0.60-1.20); GLUCOSE 147 mg/dl (70-99); MAGNESIUM 2.5 mg/dl (1.8-2.4); PHOSPHORUS 2.2 mg/dl (2.5-4.9); POTASSIUM 5.1 mmol/L (3.5-5.1); SODIUM 140 mmol/L (136-145)
--- NOTE | 2017-09-17 16:20 | DIAGNOSTIC IMAGING REPORT ---
CHEST ONE VIEW PORTABLE HISTORY: 87 years-old Female Sepsis acute sepsis with lower extremity swelling COMPARISON: Chest radiograph 09/03/2017 TECHNIQUE: Portable upright AP view of the chest FINDINGS: Cardiomegaly with pulmonary vascular congestion redemonstrated. There is atherosclerosis of the aorta. Calcified hilar lymph nodes redemonstrated. Soft tissue calcifications project over the lung apices as well. Right paratracheal density is again seen suggesting thyroid goiter. Mixed interstitial and alveolar opacities are present bilaterally, right greater than left with bibasilar consolidative densities. Bones are grossly intact. Chronic deformities with remodeling changes of the bilateral humeral joints. IMPRESSION: 1. Cardiomegaly with bilateral mixed interstitial and alveolar opacities suggesting pulmonary edema. 2. Small bilateral pleural effusions with bibasilar consolidative opacities suggesting atelectasis or pneumonia. 3. Evidence of prior granulomatous disease. The above report was generated using voice recognition software. It may contain grammatical, syntax or spelling errors. Electronically signed by: Justin Mckenzie M.D. 09/17/2017 4:18 PM Dictated Date/Time: 09/17/2017 4:16 PM
[2017-09-17] MEDS ORDERED: LEVAQUIN 750MG / 150ML D5W IV STA (16:33)
[2017-09-17] MEDS ORDERED: VNCAQN NAE (16:52)
[2017-09-17] MEDS ORDERED: CLR10 PO (16:56)
--- NOTE | 2017-09-17 17:58 | History and Physical ---
History & Physical Date & Time of Service: Sep 17, 2017 at 17:49 Chief Complaint: Sob, Sent From Dr Kearns Primary Care Physician: Gonzalez Bennett M.D. History of Present Illness Ms. Mensah has been sob for a couple of weeks. She has had reduced appetite and has been lethargic. No fever or chills, she finished a zpack that she was given the last time she was here 09/03. She has not gained more than 2 pounds in a day or 5 pounds a week. Increased confusion, shakiness. She has had some increasing edema in lower extremities. She has a chronic cough which has not changed, no sputum. No chest pain. History of COPD, CHF, dementia, CO2 retention, hypertension, CKD III, neuropathy, home O2 3L. She eats a very strict low sodium diet. Past Medical/Surgical History Medical Problems: (1) Dementia Status: Chronic Social History Smoking Status: Former Smoker (quit 60 years ago) Smokeless Tobacco Use: No Alcohol Use: none Drug Use: none Marital Status: Housing status: lives with family (lives with daughter) Occupational Status: retired Immunizations History of Influenza Vaccine: Yes History of Tetanus Vaccine?: Yes History of Pneumococcal: Yes History of Hepatitis B Vaccine: Unknown Multi-Drug Resistant Organisms History of MDRO: No Allergies Coded Allergies: Doxycycline (Verified Allergy, Mild, ., 09/03/17) BEE STING (Unverified Allergy, Unknown, , 09/03/17) Iodinated Diagnostic Agents (Verified Allergy, Unknown, `, 09/03/17) Penicillins (Verified Allergy, Unknown, 09/03/17) Home Medications Scheduled Albuterol Hfa (Ventolin Hfa), 1 PUFFS INH AMHS Beclomethasone Dip (Beconase Aq), 1 SPRAY EDI BID Brimonidine Tartrate (Alphagan P), 1 DROPS OPL BID Diclofenac Sodium (Topical) (Voltaren 1% Top Gel), 1 APPLN TOP HS Donepezil Hydrochloride (Donepezil Hcl), 5 MG PO HS Fluticasone-Salmeterol 230/21 Mcg (Advair Hfa 230/21 Mcg), 2 PUFFS INH BID Gabapentin (Neurontin), 300 MG PO QID Hctz/Spironolactone 25MG/25MG (Aldactazide 25MG/25MG), 1 TAB PO DAILY Home O2 Therapy (Oxygen), 3 LITERS NA UD Loratadine (Claritin), 10 MG PO DAILY Losartan Potassium (Cozaar), 50 MG PO DAILY Multivitamins/Minerals (Mvi With Minerals), 1 TAB PO DAILY Pravastatin Sodium (Pravastatin Sodium), 10 MG PO HS Tramadol Hcl (Ultram), 50 MG PO BID PRN Scheduled PRN Acetaminophen (Tylenol), 1,000 MG PO Q8 PRN for Pain Review of Systems Constitutional: No fever, No chills Respiratory: + cough, + shortness of breath, No sputum Cardiovascular: + edema, No chest pain Abdomen: No pain, No nausea, No vomiting, No diarrhea Physical Exam Vital Signs Date Time Temp Pulse Resp B/P (MAP) Pulse Ox O2 Delivery O2 Flow Rate FiO2 09/17/17 17:18 88 22 116/52 100 BiPAP 09/17/17 16:04 90 32 96 BiPAP/CPAP 40 09/17/17 16:03 90 96 40 09/17/17 16:01 BiPAP 09/17/17 15:59 84 22 118/53 97 BiPAP 09/17/17 15:05 37.3 109 26 167/77 65 General: no distress Eyes: normal inspection, PERLL Respiratory: chest non tender, crackles bilateral bases, no respiratory distress , no accessory muscle use Cardiac: regular rate and rhythm, no rub or gallop, no murmur, trace pitting edema lower extremities, no jvd GI/: active bowel sounds, no abd pain or tenderness, soft, non distended Extremities: normal range of motion, normal strength, non tender Neuro/Psych: alert and oriented x 3, normal mood and affect Skin: normal color, dry Diagnostics Laboratory Results Results Past 24 Hours Test 09/17/17 15:40 09/17/17 15:43 09/17/17 15:45 Range/Units Venous Blood pH 7.30 7.36-7.41 Venous Blood Partial Pressure CO2 91 38.0-50.0 mmHg Venous Blood Partial Pressure O2 54 mmHg Venous Blood HCO3 44 mmol/L Venous Blood Oxygen Saturation 85.3 % Venous Blood Base Excess 14.5 mEq/L White Blood Count 11.34 4.8-10.8 K/uL Red Blood Count 3.43 4.2-5.4 M/uL Hemoglobin 10.3 12.0-16.0 g/dL Hematocrit 35.5 37-47 % Mean Corpuscular Volume 103.5 80-100 fL Mean Corpuscular Hemoglobin 30.0 25-34 pg Mean Corpuscular Hemoglobin Concent 29.0 32-36 g/dl Platelet Count 229 130-400 K/uL Mean Platelet Volume 10.1 7.4-10.4 fL Neutrophils (%) (Auto) 89.5 % Lymphocytes (%) (Auto) 3.9 % Monocytes (%) (Auto) 5.6 % Eosinophils (%) (Auto) 0.4 % Basophils (%) (Auto) 0.4 % Neutrophils # (Auto) 10.15 1.4-6.5 K/uL Lymphocytes # (Auto) 0.44 1.2-3.4 K/uL Monocytes # (Auto) 0.63 0.11-0.59 K/uL Eosinophils # (Auto) 0.05 0-0.5 K/uL Basophils # (Auto) 0.05 0-0.2 K/uL RDW Standard Deviation 51.5 36.4-46.3 fL RDW Coefficient of Variation 13.7 11.5-14.5 % Immature Granulocyte % (Auto) 0.2 % Immature Granulocyte # (Auto) 0.02 0.00-0.02 K/uL Erythrocyte Sedimentation Rate 54 0-21 mm/hr Sodium Level 140 136-145 mmol/L Potassium Level 5.1 3.5-5.1 mmol/L Chloride Level 96 98-107 mmol/L Carbon Dioxide Level 43 21-32 mmol/L Anion Gap 1.0 3-11 mmol/L Blood Urea Nitrogen 44 7-18 mg/dl Creatinine 1.14 0.60-1.20 mg/dl Est Creatinine Clear Calc Drug Dose 35.6 ml/min Estimated GFR () 49.7 Estimated GFR (Non- 42.9 BUN/Creatinine Ratio 38.5 10-20 Random Glucose 147 70-99 mg/dl Bedside Lactic Acid Venous 0.99 0.90-1.70 mmol/L Calcium Level 10.3 8.5-10.1 mg/dl Phosphorus Level 2.2 2.5-4.9 mg/dl Magnesium Level 2.5 1.8-2.4 mg/dl Total Bilirubin 0.2 0.2-1 mg/dl Aspartate Amino Transf (AST/SGOT) 19 15-37 U/L Alanine Aminotransferase (ALT/SGPT) 18 12-78 U/L Alkaline Phosphatase 92 45-117 U/L Total Creatine Kinase 42 26-192 U/L Creatine Kinase MB 1.2 0.5-3.6 ng/ml Creatine Kinase MB Ratio 2.9 0-3.0 Troponin I 0.052 0-0.045 ng/ml C-Reactive Protein < 0.29 0-0.29 mg/dl Pro-B-Type Natriuretic Peptide 646 0-1800 pg/ml Total Protein 7.0 6.4-8.2 gm/dl Albumin 3.2 3.4-5.0 gm/dl Globulin 3.8 2.5-4.0 gm/dl Albumin/Globulin Ratio 0.8 0.9-2 Lipase 126 73-393 U/L Chemistry Specimen Hemolysis Urine Color YELLOW Urine Appearance CLEAR CLEAR Urine pH 6.0 4.5-7.5 Urine Specific Dewy Rose 1.021 1.000-1.030 Urine Protein 1+ NEG Urine Glucose (UA) NEG NEG Urine Ketones NEG NEG Urine Occult Blood TRACE NEG Urine Nitrite NEG NEG Urine Bilirubin NEG NEG Urine Urobilinogen NEG NEG Urine Leukocyte Esterase NEG NEG Urine WBC (Auto) 1-5 0-5 /hpf Urine RBC (Auto) 0-4 0-4 /hpf Urine Hyaline Casts (Auto) 1-5 0-5 /lpf Urine Epithelial Cells (Auto) 5-10 0-5 /lpf Urine Bacteria (Auto) NEG NEG Microbiology Results 09/17/17 Blood Culture, Received Pending 09/17/17 Blood Culture, Received Pending Diagnostic Radiology CHEST ONE VIEW PORTABLE HISTORY: 87 years-old Female Sepsis acute sepsis with lower extremity swelling COMPARISON: Chest radiograph 09/03/2017 TECHNIQUE: Portable upright AP view of the chest FINDINGS: Cardiomegaly with pulmonary vascular congestion redemonstrated. There is atherosclerosis of the aorta. Calcified hilar lymph nodes redemonstrated. Soft tissue calcifications project over the lung apices as well. Right paratracheal density is again seen suggesting thyroid goiter. Mixed interstitial and alveolar opacities are present bilaterally, right greater than left with bibasilar consolidative densities. Bones are grossly intact. Chronic deformities with remodeling changes of the bilateral humeral joints. IMPRESSION: 1. Cardiomegaly with bilateral mixed interstitial and alveolar opacities suggesting pulmonary edema. 2. Small bilateral pleural effusions with bibasilar consolidative opacities suggesting atelectasis or pneumonia. 3. Evidence of prior granulomatous disease. EKG Normal sinus rhythm Nonspecific T wave abnormality When compared with ECG of 03-SEP-2017 12:47, No significant change was found Confirmed by YOLANDA BEGUM ([id number]) on 09/17/2017 4:07:44 PM Impression Assessment and Plan Ms. Mensah is an 87 year old woman here for sob for a couple of weeks. History of COPD, CHF, dementia, CO2 retention, hypertension, CKD III, neuropathy. Hypoxia due to diastolic CHF/COPD/CA-PNA - admit telemetry - continue bipap as patient's CO2 was in the 90s on ABG - NPO while on bipap - cbc, prp in the morning - troponin elevated - serial troponins - Pulmonary edema on xray, increased edema lower extremities - lasix iv x 1 dose - Rios catheter for strict I's&Os - Levaquin - PT/OT when respiratory status is stable - solumedrol q6h Hypertension - continue spironolactone/HCTZ - continue losartan Hyperlipidemia - continue statin CKDIII - prp in the morning - avoid nephrotoxic meds - renally dosed abs Neuropathy - continue gabapentin Osteoarthritis - continue diclofenac shoulders and knees Resuscitation status - DNR DVT prophylaxis - heparin subq, SCDS, TEDS Advanced Directives Existing Advance Directive: Yes Existing Living Will: Yes Existing Power of Brushing Operator: Yes (daughter) Existing Health Care Proxy: No Resuscitation Status DO NOT RESUSCITATE VTE Prophylaxis VTE Risk Assessment Done? Y/N: Yes Risk Level: Moderate Note Attending Admission note & attestation: Pt seen/examined, chart reviewed, care plan d/w VI Carver. I agree w/ the hunt components of her documentation. 87yo female - chronic hypoxic/hypercarbic resp failure on home O2, COPD, diastolic CHF - presenting with acute/chronic resp failure along with metabolic encephalopathy. CXR today w/ possible b/l basilar pneumonia and probable CHF. VBG with hypercarbia and resp acidosis. Vitals - o2 sats acceptable on 40% FiO2 RR wnl gen - confused, no distress on BIPAP neck - possible JVD, neck size large making assessment difficult heart - RRR lungs - bibasilar rales, airation fair, no wheeze abd - soft, mildly distended, BS+ ext - 1+ edema b/l A/P: 1. acute/chronic hypoxic/hypercarbic resp failure 2. COPD with exacerbation 3. probable acute/chronic diastolic CHF 4. probable b/l basilar pneumonia 5. CKD stage 3 6. met encephalopathy 7. FAUSTO agree with a dose of IV diuretic judicious use of steroids IV abx BIPAP repeat VBG this evening to ensure correction of acidosis/hypercarbia tele status Angelo HAYDEN MD
[2017-09-17] MEDS ORDERED: ACETAMINOPHEN 325 MG TAB PO PRN (18:15)
[2017-09-17] MEDS ORDERED: ONDANSETRON INJ 2 MG/ML 2 ML VIAL IV PRN (18:15)
[2017-09-17] MEDS ORDERED: TRAMADOL HCL 50 MG TAB PO PRN (18:15)
[2017-09-17] MEDS ORDERED: MAGNESIUM HYDROXIDE SUSP 30 ML UDC PO PRN (18:15)
[2017-09-17] MEDS ORDERED: ACETAMINOPHEN 500 MG TAB PO PRN (18:15)
[2017-09-17] MEDS ORDERED: POLYETHYLENE (MIRALAX) 17 GM PACK PO PRN (18:15)
[2017-09-17] MEDS ORDERED: ALUMINUM/MAGNESIUM/SIMETH (MAALOX MAX) 30 ML UDC PO PRN (18:15)
[2017-09-17 18:35] LABS: PARTIAL THROMBOPLASTIN RATIO 0.9; PROTHROMBIN TIME (PATIENT) 10.4 SECONDS (9.0-12.0)
[2017-09-17] MEDS ORDERED: METHYLPREDNISOLONE IV 40 MG in SYRINGE 0 ML IV SCH (18:45)
[2017-09-17] MEDS: ALBUT/IPRATROP 3MG/0.5MG NEB 3 ML VIAL INH SCH (20:00)
[2017-09-17] MEDS ORDERED: FUROSEMIDE INJ 40 MG in SYRINGE 0 ML IV ONE (20:15)
[2017-09-17 20:32] LABS: VEN BLOOD GAS BASE EXCESS 15.8 mEq/L; VENOUS BLOOD GAS PCO2 92 mmHg (38.0-50.0); VENOUS BLOOD GAS PO2 28 mmHg
[2017-09-17 20:33] LABS: VEN BLD GAS O2 SATURATION < 60.0 %
[2017-09-17] MEDS ORDERED: ALBUTEROL HFA 8 GM INHALER INH SCH (21:00)
[2017-09-17] MEDS: DICLOFENAC SOD 1% GEL 100 GM TUBE EXT SCH (21:20)
[2017-09-17] MEDS: PRAVASTATIN SOD 10 MG TAB PO SCH (21:21)
[2017-09-17] MEDS: DONEPEZIL HCL 5 MG TAB PO SCH (21:22)
[2017-09-17] MEDS: GABAPENTIN 300 MG CAP PO SCH (21:22)
[2017-09-17] MEDS: HEPARIN SOD 5000 UNIT/0.5 ML CARP SQ SCH (21:24)
[2017-09-17] MEDS: BRIMONIDINE TARTRATE-P 0.15% 5 ML BTL OPL SCH (21:35)
[2017-09-17] MEDS: METHYLPREDNISOLONE IV SCH (21:40)
[2017-09-17] MEDS ORDERED: INFLUENZA ADMINISTRATION CHARGE ONE (22:45)
[2017-09-17] MEDS ORDERED: INFLUENZA VACCINE HIGH DOSE 65+ 0.5 ML SYR IM. ONE (22:45)
[2017-09-18] VITALS (11 sets, daily range): BP systolic 98–167; BP diastolic 56–80; PULSE 75–102; TEMP 36.9–37.5; O2SAT 90–98
[2017-09-18] MEDS: METHYLPREDNISOLONE IV SCH ×4 (03:19→19:29)
[2017-09-18 05:50] LABS: HEMATOCRIT 30.7 % (37-47); MEAN CELL VOLUME 102.3 fL (80-100); MEAN CORPUSCULAR HGB CONC 29.3 g/dl (32-36); MEAN PLATELET VOLUME 9.5 fL (7.4-10.4); PLATELET COUNT 179 K/uL (130-400); WHITE BLOOD COUNT 6.87 K/uL (4.8-10.8)
[2017-09-18 06:40] LABS: BUN/CREATININE RATIO 40.5 (10-20); CALCIUM 10.3 mg/dl (8.5-10.1); CREATININE 1.08 mg/dl (0.60-1.20); POTASSIUM 5.3 mmol/L (3.5-5.1)
[2017-09-18] MEDS: ALBUT/IPRATROP 3MG/0.5MG NEB 3 ML VIAL INH SCH ×4 (07:21→19:23)
[2017-09-18] MEDS: LORATADINE 10 MG TAB PO SCH (07:42)
[2017-09-18] MEDS: CEROVITE ADV FORMULA TAB PO SCH (07:42)
[2017-09-18] MEDS: GABAPENTIN 300 MG CAP PO SCH ×4 (07:43→19:30)
[2017-09-18] MEDS: LOSARTAN POTASSIUM 50 MG TAB PO SCH (07:44)
[2017-09-18] MEDS: BRIMONIDINE TARTRATE-P 0.15% 5 ML BTL OPL SCH ×2 (07:44→19:30)
[2017-09-18] MEDS: FLUTICASONE PROPIONATE NA SPR 16 GM BTL NAE SCH (07:45)
[2017-09-18] MEDS: HEPARIN SOD 5000 UNIT/0.5 ML CARP SQ SCH ×2 (07:46→21:06)
[2017-09-18] MEDS ORDERED: SPIRONOLACTONE/HCTZ 25-25 PO SCH (09:00)
--- NOTE | 2017-09-18 17:39 | Progress Note ---
Subjective Date of Service: Sep 18, 2017. Subjective Pt evaluation today including: conversation w/ patient, conversation w/ family (caregiver), physical exam, chart review, lab review, review of studies, review of inpatient medication list seen ~9am feeling better breathing better main complaint is feeling like mucous is stuck in throat would like bipap off no f/c/s no edema / weight gain Problem List Medical Problems: (1) Ambulatory dysfunction Status: Acute (2) Anemia Status: Acute (3) CHF (congestive heart failure) Status: Acute (4) Chronic obstructive pulmonary disease Status: Acute (5) MELISSA (dyspnea on exertion) Status: Acute (6) Generalized weakness Status: Acute (7) Hypoxia Status: Acute (8) Pneumonia Status: Acute (9) Pulmonary edema Status: Acute (10) Respiratory acidosis Status: Acute Review of Systems all other ROS otherwise negative except for as above Objective Vital Signs Date Time Temp Pulse Resp B/P (MAP) Pulse Ox O2 Delivery O2 Flow Rate FiO2 09/18/17 16:00 Nasal Cannula 3.0 09/18/17 15:54 37.3 87 22 113/57 (75) 96 Nasal Cannula 3.0 09/18/17 15:21 84 16 92 Nasal Cannula 3.0 09/18/17 12:07 36.9 75 20 151/68 (95) 98 09/18/17 12:00 Nasal Cannula 3.0 Humidified Oxygen 09/18/17 11:17 76 16 96 Nasal Cannula 5.0 09/18/17 08:00 BiPAP 35 09/18/17 07:48 37.3 87 22 152/80 (104) 93 BiPAP 35 09/18/17 07:27 76 98 35 09/18/17 07:25 76 12 98 BiPAP/CPAP 35 09/18/17 04:00 BiPAP 09/18/17 03:15 36.9 85 20 98/56 (70) 94 BiPAP 09/18/17 00:00 BiPAP 09/17/17 23:01 36.5 79 20 122/75 (91) 92 BiPAP 09/17/17 22:44 65 98 40 09/17/17 20:19 90 97 40 09/17/17 20:15 36.8 97 22 131/63 BiPAP 09/17/17 20:00 BiPAP 09/17/17 20:00 99 Mask 3.0 09/17/17 19:00 89 20 136/67 100 BiPAP 09/17/17 18:09 92 22 136/53 99 BiPAP 40 Physical Exam General Appearance: no apparent distress Eyes: EOMI ENT: hearing grossly normal Neck: trachea midline Respiratory/Chest: no respiratory distress, no accessory muscle use, + decreased breath sounds (scattered rhonchi and wheeze good efffort) 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, 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, normal mood/affect Skin: normal color, warm/dry Laboratory Results Last 24 Hours Test 09/17/17 20:20 09/18/17 00:24 09/18/17 05:35 09/18/17 06:43 Venous Blood pH 7.31 Venous Blood Partial Pressure CO2 92 mmHg Venous Blood Partial Pressure O2 28 mmHg Venous Blood HCO3 45 mmol/L Venous Blood Oxygen Saturation < 60.0 % Venous Blood Base Excess 15.8 mEq/L Troponin I 0.082 ng/ml 0.070 ng/ml White Blood Count 6.87 K/uL Red Blood Count 3.00 M/uL Hemoglobin 9.0 g/dL Hematocrit 30.7 % Mean Corpuscular Volume 102.3 fL Mean Corpuscular Hemoglobin 30.0 pg Mean Corpuscular Hemoglobin Concent 29.3 g/dl RDW Standard Deviation 52.0 fL RDW Coefficient of Variation 13.8 % Platelet Count 179 K/uL Mean Platelet Volume 9.5 fL Sodium Level 141 mmol/L Potassium Level 5.3 mmol/L Chloride Level 96 mmol/L Carbon Dioxide Level 41 mmol/L Anion Gap 4.0 mmol/L Blood Urea Nitrogen 44 mg/dl Creatinine 1.08 mg/dl Est Creatinine Clear Calc Drug Dose 37.8 ml/min Estimated GFR () 53.1 Estimated GFR (Non- 45.8 BUN/Creatinine Ratio 40.5 Random Glucose 134 mg/dl Calcium Level 10.3 mg/dl Bedside Glucose 137 mg/dl Test 09/18/17 11:38 09/18/17 16:14 Bedside Glucose 150 mg/dl 141 mg/dl Assessment and Plan Hypoxia due to diastolic CHF/COPD/community acquired-PNA - continue on telemetry - transfer once continues to improve - stable to wean off bipap now - Pulmonary edema on xray, increased edema lower extremities - lasix iv x 1 dose given yesterday no clear evidence of ongoing need for further lasix - will continue to folow and re-dose if needed - Rios catheter for strict I's&Os - Levaquin - PT/OT when respiratory status is stable - solumedrol q6h - possibly wean starting tomorrow Elevated troponin - demand ischemia due to above; no s/s ACS Hypertension - continue spironolactone/HCTZ - continue losartan Hyperlipidemia - continue statin CKDIII - overall stable, continue to follow Neuropathy - continue gabapentin Osteoarthritis - continue diclofenac shoulders and knees Resuscitation status - DNR DVT prophylaxis - heparin subq, SCDS, TEDS
[2017-09-18] MEDS: DONEPEZIL HCL 5 MG TAB PO SCH (19:30)
[2017-09-18] MEDS: PRAVASTATIN SOD 10 MG TAB PO SCH (19:30)
[2017-09-18] MEDS: DICLOFENAC SOD 1% GEL 100 GM TUBE EXT SCH (19:31)
[2017-09-19] VITALS (7 sets, daily range): BP systolic 129–144; BP diastolic 69–73; PULSE 77–89; TEMP 36.6–37; O2SAT 9–96
[2017-09-19] MEDS: METHYLPREDNISOLONE IV SCH ×3 (04:05→14:16)
[2017-09-19] MEDS: ALBUT/IPRATROP 3MG/0.5MG NEB 3 ML VIAL INH SCH ×3 (07:19→14:38)
[2017-09-19 08:01] LABS: BUN/CREATININE RATIO 40.4 (10-20); CALCIUM 10.4 mg/dl (8.5-10.1); CREATININE 1.49 mg/dl (0.60-1.20); POTASSIUM 5.3 mmol/L (3.5-5.1)
[2017-09-19] MEDS: BRIMONIDINE TARTRATE-P 0.15% 5 ML BTL OPL SCH (08:22)
[2017-09-19] MEDS: FLUTICASONE PROPIONATE NA SPR 16 GM BTL NAE SCH (08:23)
[2017-09-19] MEDS: GABAPENTIN 300 MG CAP PO SCH ×2 (08:23→12:45)
[2017-09-19] MEDS: CEROVITE ADV FORMULA TAB PO SCH (08:23)
[2017-09-19] MEDS: LOSARTAN POTASSIUM 50 MG TAB PO SCH (08:23)
[2017-09-19] MEDS: LORATADINE 10 MG TAB PO SCH (08:23)
[2017-09-19] MEDS: HEPARIN SOD 5000 UNIT/0.5 ML CARP SQ SCH (08:29)
[2017-09-19 10:00] LABS: COMPLETE YES; HEMATOCRIT 32.4 % (37-47); IG% 0.1 %; LYMPH % 5.4 %; LYMPH ABS # 0.42 K/uL (1.2-3.4); MEAN CELL VOLUME 102.9 fL (80-100); MEAN CORPUSCULAR HEMOGLOBIN 29.5 pg (25-34); MEAN CORPUSCULAR HGB CONC 28.7 g/dl (32-36); MEAN PLATELET VOLUME 10.3 fL (7.4-10.4); MONO % 5.7 %; NEUT % 88.8 %; PLATELET COUNT 212 K/uL (130-400); RED BLOOD COUNT 3.15 M/uL (4.2-5.4); WHITE BLOOD COUNT 7.78 K/uL (4.8-10.8)
[2017-09-19] MEDS ORDERED: PRED10PA3 PO (12:00)
[2017-09-19] MEDS ORDERED: IPRASOL4 INH (12:00)
[2017-09-19] MEDS ORDERED: LEVO1TAB35 PO (12:00)
--- NOTE | 2017-09-19 13:07 | Discharge Instructions ---
Discharge Instructions Date of Service Sep 19, 2017. Admission Reason for Admission: Congestive Heart Failure, Copd, Penumonia Discharge Discharge Diagnosis / Problem: COPD exacerbation Discharge Goals Goal(s): Diagnostic testing, Therapeutic intervention Activity Recommendations Activity Level: Assistance Required Therapies: Physical Therapy, Occupational Therapy . Additional Information Patient informed of condition: Yes Advance Directives: Yes DNR: Yes Level of Care: Acute Rehab Communicable Disease: No Prognosis: Improving Instructions / Follow-Up Instructions / Follow-Up COPD exacerbation -finish course of levaquin 750mg PO q48hrs, dosing in PM on 09/19, 17, 19, 21 -tapering course of prednisone -duonebs as ordered for now, as she continues to improve, possibly can switch to tiotropium as anticholinergic and then simply albuterol prn sob/wheeze -caregivers noted that she may require different portable O2 device - d/w case management here, they noted they would pass along -is chronically on 2-3L O2 at baseline CHF exacerbation -mild - improved w one dose of lasix, currently now actually slightly dry -- follow BMP 09/20, then as clinically warranted, follow PO intake Current Hospital Diet Patient's current hospital diet: Low Sodium Diet (2gm Na) Discharge Diet Recommended Diet: AHA Diet (Heart Healthy), Low Sodium Diet (2gm Na) Pending Studies Studies pending at discharge: no Medical Emergencies . Who to Call and When: Medical Emergencies: If at any time you feel your situation is an emergency, please call 911 immediately. . Non-Emergent Contact Non-Emergency issues call your: Primary Care Provider . . "Provider Documentation" section prepared by Norm Sparks. . Core Measure Problem Core Measures: None
[2017-09-19] MEDS ORDERED: LEVOFLOXACIN / D5W 750 MG in PREMIXED IN D5W 150 ML IV SCH (16:00)
--- NOTE | 2017-09-19 19:45 | Discharge Summary ---
Discharge Summary Date of Service Sep 19, 2017. Discharge Summary Admission Date: Sep 17, 2017 at 18:14 Discharge Date: Sep 19, 2017 Discharge Disposition: Rehab Principal Diagnosis: hypoxia - COPD >>> diastolic CHF w elements of both Immunizations: Have You Had Influenza Vaccine: Yes History of Tetanus Vaccine?: Yes History of Pneumococcal: Yes History of Hepatitis B Vaccine: Unknown Procedures: Last Resulted CBC 09/19/17 07:08 Red Blood Count 3.15, Mean Corpuscular Volume 102.9, Mean Corpuscular Hemoglobin 29.5, Mean Corpuscular Hemoglobin Concent 28.7, Mean Platelet Volume 10.3, Neutrophils (%) (Auto) 88.8, Lymphocytes (%) (Auto) 5.4, Monocytes (%) ( Auto) 5.7, Eosinophils (%) (Auto) 0.0, Basophils (%) (Auto) 0.0, Neutrophils # ( Auto) 6.91, Lymphocytes # (Auto) 0.42, Monocytes # (Auto) 0.44, Eosinophils # ( Auto) 0.00, Basophils # (Auto) 0.00 Last Resulted BMP 09/19/17 07:08 CHEST ONE VIEW PORTABLE HISTORY: 87 years-old Female Sepsis acute sepsis with lower extremity swelling COMPARISON: Chest radiograph 09/03/2017 TECHNIQUE: Portable upright AP view of the chest FINDINGS: Cardiomegaly with pulmonary vascular congestion redemonstrated. There is atherosclerosis of the aorta. Calcified hilar lymph nodes redemonstrated. Soft tissue calcifications project over the lung apices as well. Right paratracheal density is again seen suggesting thyroid goiter. Mixed interstitial and alveolar opacities are present bilaterally, right greater than left with bibasilar consolidative densities. Bones are grossly intact. Chronic deformities with remodeling changes of the bilateral humeral joints. IMPRESSION: 1. Cardiomegaly with bilateral mixed interstitial and alveolar opacities suggesting pulmonary edema. 2. Small bilateral pleural effusions with bibasilar consolidative opacities suggesting atelectasis or pneumonia. 3. Evidence of prior granulomatous disease. The above report was generated using voice recognition software. It may contain grammatical, syntax or spelling errors. Electronically signed by: Justin Mckenzie M.D. 09/17/2017 4:18 PM Medication Reconciliation New Medications: Levofloxacin (Levaquin) 750 Mg Tab 750 MG PO UD, #4 TAB levaquin 750mg po q48hrs x4 more doses next dose in PM of 11 Prednisone (Prednisone) 10 Mg Aidan 1 TAB PO DAILY, #30 4 tab po daily x3 days then 3 tab po daily x3 days then 2 tab po daily x 3 days then 1 tab po daily x 3 days then stop Ipratropium-Albuterol (Duoneb) 3 Ml Nebu 3 ML INH QIDR, #120 Continued Medications: Acetaminophen (Tylenol) 500 Mg Tab 1000 MG PO Q8 PRN for Pain Albuterol Hfa (Ventolin Hfa) 200 Puffs/15758 Mcg Aers 1 PUFFS INH AMHS Beclomethasone Dip (Beconase Aq) 200 Sprays/82777 Mg Aers 1 SPRAY EDI BID Brimonidine Tartrate (Alphagan P) 75 Drops/5 Ml Soln 1 DROPS OPL BID Diclofenac Sodium (Topical) (Voltaren 1% Top Gel) 1 % Gel 1 APPLN TOP HS APPLY TO KNEES AND SHOULDERS Donepezil Hydrochloride (Donepezil Hcl) 5 Mg Tab 5 MG PO HS Fluticasone-Salmeterol 230/21 Mcg (Advair Hfa 230/21 Mcg) 1 Aer Aer 2 PUFFS INH BID Gabapentin (Neurontin) 300 Mg Cap 300 MG PO QID, CAP Hctz/Spironolactone 25MG/25MG (Aldactazide 25MG/25MG) 1 Tab Tab 1 TAB PO DAILY, TAB Home O2 Therapy (Oxygen) Gas 3 LITERS NA UD, BTL Loratadine (Claritin) 10 Mg Tab 10 MG PO DAILY, TAB Losartan Potassium (Cozaar) 50 Mg Tab 50 MG PO DAILY, TAB Multivitamins/Minerals (Mvi With Minerals) Tab 1 TAB PO DAILY, TAB Pravastatin Sodium (Pravastatin Sodium) 10 Mg Tab 10 MG PO HS Tramadol Hcl (Ultram) 50 Mg Tab 50 MG PO BID PRN, TAB PRN PAIN Discharge Exam Physical Exam: General Appearance: no apparent distress Eyes: EOMI ENT: hearing grossly normal Neck: trachea midline Respiratory/Chest: no respiratory distress, no accessory muscle use, + decreased breath sounds (overall surprisingly clear no r/r, maybe faint wheeze far better air entry good effort, conversational without any dyspnea) Cardiovascular: regular rate, rhythm (distant) 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, 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, normal mood/affect Skin: normal color, warm/dry Hospital Course Hypoxia due to diastolic CHF/COPD/community acquired-PNA -appearing that hypoxia was COPD exac related to community acquired pneumonia, small amount of acute diastolic CHF likely related to the stress from pneumonia/ COPD -initially was on meds + aggressive supportive care including bipap - improved dramatically quickly - already back to baseline O2 requirements - Pulmonary edema on xray, increased edema lower extremities - lasix iv x 1 dose given at admission no clear evidence of ongoing need for further lasix - actually appearing slightly dry both on exam and labs (although on indication to risk repeat CHF w IVF - will allow oral intake and time to correct) - Levaquin to complete course of abx - solumedrol q6h - when in hospital --> transition to PO prednisone taper Elevated troponin - demand ischemia due to above; no s/s ACS. Hypertension - continue spironolactone/HCTZ - continue losartan Hyperlipidemia - continue statin CKDIII - slight rise on creatinine likely related to lasix for CHF -- at this point appearing slightly dry but not hypovolemic - would hold on IVF, but would follow oral intake and repeat BMP tomorrow then at clinical discretion based on results Neuropathy - continue gabapentin Osteoarthritis - continue diclofenac topical shoulders and knees Resuscitation status - DNR DVT prophylaxis - heparin subq, SCDS, TEDS utilized while here Total Time Spent: Less than 30 minutes This includes examination of the patient, discharge planning, medication reconciliation, and communication with other providers. Discharge Instructions Please refer to the electronic Patient Visit Report (Discharge Instructions) for additional information. Additional Copies To Monae Gregory
== END 2017-09-19 16:10 | DRG 291 ==
LOC: C.EDB 14:58 → C.2T 18:14 → ENRESERV 18:41
PROVIDERS: ADMIT Internal Medicine; ATTEND Family Medicine
DX: I13.0 Hypertensive heart and chronic kidney disease with heart failure and stage 1 through stage 4 chronic kidney disease, or unspecified chronic kidney disease (principal); I50.33 Acute on chronic diastolic (congestive) heart failure; J18.9 Pneumonia, unspecified organism; J96.21 Acute and chronic respiratory failure with hypoxia; J96.22 Acute and chronic respiratory failure with hypercapnia; G93.41 Metabolic encephalopathy; J44.1 Chronic obstructive pulmonary disease with (acute) exacerbation; E87.2 Acidosis; I24.8 Other forms of acute ischemic heart disease; N18.3 Chronic kidney disease, stage 3 (moderate); E78.5 Hyperlipidemia, unspecified; G62.9 Polyneuropathy, unspecified; M17.0 Bilateral primary osteoarthritis of knee; M19.012 Primary osteoarthritis, left shoulder; M19.011 Primary osteoarthritis, right shoulder; G47.33 Obstructive sleep apnea (adult) (pediatric); F03.90 Unspecified dementia, unspecified severity, without behavioral disturbance, psychotic disturbance, mood disturbance, and anxiety; Z66 Do not resuscitate; Z23 Encounter for immunization; Z99.81 Dependence on supplemental oxygen; Z87.891 Personal history of nicotine dependence; Z79.51 Long term (current) use of inhaled steroids; Z79.891 Long term (current) use of opiate analgesic; Z79.899 Other long term (current) drug therapy; Z88.1 Allergy status to other antibiotic agents; Z91.041 Radiographic dye allergy status

== ENCOUNTER 2017-09-29 05:19 | Emergency (ER) | payer BC, OTHER ==
[~2017-09-29 05:19] MED LIST changes: -AZIT250T PO; +CLR10 PO; +IPRASOL4 INH; +LEVO1TAB35 PO; +PRED10PA3 PO
[2017-09-29] MEDS ORDERED: SODIUM CHLORIDE 0.9% 10ML FLUSH IV ONE (05:23)
[2017-09-29 05:44] VITALS: BP 107/83; PULSE 127; O2SAT 95
--- NOTE | 2017-09-29 07:26 | EMERGENCY ROOM VISIT NOTE ---
History Report prepared by Raúl: Kelly Samson Under the Supervision of: Dr. Mabel Saini D.O. 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 The patient presents to the ED by EMS. Patient has been at a rehabilitation facility, was found by staff unresponsive. Unclear when patient may first become unresponsive or went into cardiac arrest. She was found to be in asystole initially. There were conflicting reports on whether the patient was a DNR/DNI or a full code. Efforts were made by EMS to resuscitate the patient. On initial radial consult, patient received 4 doses of epinephrine, CPR, no shock advised, and patient appeared PEA. By arrival to the emergency room, patient had return of spontaneous circulation, with a fast an abnormal rhythm that appeared to be possibly atrial fibrillation. IO placed by EMS. The history is limited due to cardiac arrest. EMS reported patient had recently been treated for pneumonia, had a history of COPD as well as congestive heart failure. Source of History: EMS History Limited By: cardiac arrest Onset: NUT STEAMER Position: other (global) Quality: other (cardiac arrest) Timing: other (persistent) Review of Systems Unable to obtain due to cardiac arrest. Past Medical & Surgical Medical Problems: (1) Congestive heart failure (2) COPD (chronic obstructive pulmonary disease) (3) Dementia Family History Noncontributory secondary to age. Social History Smoking Status: Former Smoker Drug Use: none Marital Status: Occupation Status: retired Current/Historical Medications Scheduled Albuterol Hfa (Ventolin Hfa), 1 PUFFS INH AMHS Beclomethasone Dip (Beconase Aq), 1 SPRAY EDI BID Brimonidine Tartrate (Alphagan P), 1 DROPS OPL BID Diclofenac Sodium (Topical) (Voltaren 1% Top Gel), 1 APPLN TOP HS Donepezil Hydrochloride (Donepezil Hcl), 5 MG PO HS Fluticasone-Salmeterol 230/21 Mcg (Advair Hfa 230/21 Mcg), 2 PUFFS INH BID Gabapentin (Neurontin), 300 MG PO QID Hctz/Spironolactone 25MG/25MG (Aldactazide 25MG/25MG), 1 TAB PO DAILY Home O2 Therapy (Oxygen), 3 LITERS NA UD Ipratropium-Albuterol (Duoneb), 3 ML INH QIDR Levofloxacin (Levaquin), 750 MG PO UD Loratadine (Claritin), 10 MG PO DAILY Losartan Potassium (Cozaar), 50 MG PO DAILY Multivitamins/Minerals (Mvi With Minerals), 1 TAB PO DAILY Pravastatin Sodium (Pravastatin Sodium), 10 MG PO HS Prednisone (Prednisone), 1 TAB PO DAILY Tramadol Hcl (Ultram), 50 MG PO BID PRN Scheduled PRN Acetaminophen (Tylenol), 1,000 MG PO Q8 PRN for Pain Allergies Coded Allergies: Doxycycline (Verified Allergy, Mild, ., 09/03/17) BEE STING (Unverified Allergy, Unknown, , 09/03/17) Iodinated Diagnostic Agents (Verified Allergy, Unknown, `, 09/03/17) Penicillins (Verified Allergy, Unknown, 09/03/17) Physical Exam Vital Signs Date Time Temp Pulse Resp B/P (MAP) Pulse Ox O2 Delivery O2 Flow Rate FiO2 09/29/17 05:44 127 14 107/83 95 Ambu-Bag 09/29/17 05:20 122 Physical Exam GENERAL: intubated, Low in place, obese EYE EXAM: pupils fixed in mid position, 4-5 mm bilaterally. OROPHARYNX: ET tube in place, no obvious blood or secretions NECK: supple, no nuchal rigidity, no adenopathy LUNGS: Diminished. No wheezes, rhonchi, rales. HEART: Irregular, tachycardic. ABDOMEN: abdomen soft, no pulsatile masses, no organomegaly. BACK: Back is symmetrical on inspection and there is no deformity, no midline tenderness, no CVA tenderness. SKIN: no rashes and no bruising EXTREMITIES: 3+ pitting edema bilaterally to the upper and lower extremities. No palpable pulses. NEURO EXAM: GCS of 3. Medical Decision & Procedures ED Course 0519: The patient was evaluated in room A1. A complete history and physical exam was performed. 0524: I spoke with the patient's family. They confirmed that she is a DNR/DNI. They report that the patient had a history of heart problems and recently had pneumonia. States she had mild dementia but would still recognize family. Had difficulty with date and time. While discussing with her, nursing staff alerted me at patient had lost pulses again. The family stated they did not want any additional resuscitative efforts made. 0531: The patient was pronounced at this time. Medical Decision Differential diagnosis: Etiologies such as cardiac ischemia, aortic dissection, pulmonary embolism, electrolyte abnormality, acidosis, tension pneumothorax, hypothermia, hypovolemia, intracranial event, pneumonia, bronchitis, COPD/Asthma exacerbation , pneumothorax, pulmonary embolism, congestive heart failure, acute coronary syndrome. Impression Primary Impression: Cardiac arrest Additional Impressions: Respiratory failure Congestive heart failure COPD (chronic obstructive pulmonary disease) Dementia Critical Care I have personally spent 45 minutes of critical care time in the direct management of this patient. This includes bedside care, interpretation of diagnostic studies, and testing, discussion with consultants, patient, and family members, and other required patient management activities. This 45 minutes is in excess of all separately billable procedures. Scribe Attestation The scribe's documentation has been prepared under my direction and personally reviewed by me in its entirety. I confirm that the note above accurately reflects all work, treatment, procedures, and medical decision making performed by me. Departure Information Dispostion Referrals [facility] (PCP) Patient Instructions My [facility] Problem Qualifiers Additional Impressions: Respiratory failure Chronicity: acute on chronic Respiratory failure complication: unspecified whether with hypoxia or hypercapnia Qualified Codes: J96.20 - Acute and chronic respiratory failure, unspecified whether with hypoxia or hypercapnia Congestive heart failure Congestive heart failure type: combined Congestive heart failure chronicity: acute on chronic Qualified Codes: I50.43 - Acute on chronic combined systolic (congestive) and diastolic (congestive) heart failure COPD (chronic obstructive pulmonary disease) COPD type: unspecified COPD Qualified Codes: J44.9 - Chronic obstructive pulmonary disease, unspecified Dementia Dementia type: unspecified type Dementia behavioral disturbance: without behavioral disturbance Qualified Codes: F03.90 - Unspecified dementia without behavioral disturbance
== END 2017-09-29 06:14 | disposition expired ==
LOC: EDBD 05:19 → C.EDA 05:22
DX: I46.9 Cardiac arrest, cause unspecified (principal); J96.20 Acute and chronic respiratory failure, unspecified whether with hypoxia or hypercapnia; I50.43 Acute on chronic combined systolic (congestive) and diastolic (congestive) heart failure; J44.9 Chronic obstructive pulmonary disease, unspecified; F03.90 Unspecified dementia, unspecified severity, without behavioral disturbance, psychotic disturbance, mood disturbance, and anxiety; Z87.01 Personal history of pneumonia (recurrent); Z87.891 Personal history of nicotine dependence; Z66 Do not resuscitate